=== PATIENT | female | born 1935 | race Caucasian/White ===

== ENCOUNTER 2020-08-04 12:32 | Outpatient (REF) | payer MEDICARE, SELFPAY ==
[2020-08-04 14:02] LABS: MANUAL DIFF FLAG NO
[2020-08-04 14:10] LABS: Basophils Percent Auto 0.6 % (0-2); Eosinophils Absolute Auto 0.1 X10*3/uL (0.0-0.4); Eosinophils Percent Auto 0.9 % (0-4); Hematocrit 40.5 % (37-47); Hemoglobin 13.4 g/dl (12.0-16.0); Imm Gran Abs Auto 0.01 X10*3/uL (0.00-0.03); Imm Gran Pct Auto 0.2 % (0.0-0.4); Lymphocytes Absolute Auto 1.6 X10*3/uL (1.2-4.9); Lymphocytes Percent Auto 24.9 % (20-40); Mean Corpuscular HGB Conc 33.1 g/dl (31.0-35.0); Mean Corpuscular Hemoglobin 31.2 pg (27.0-33.0); Mean Corpuscular Volume 94.4 fL (80-98); Mean Platelet Volume 10.3 fL (9.4-12.3); Monocytes Absolute Auto 0.5 X10*3/uL (0.1-1.2); Monocytes Percent Auto 8.1 % (2-11); Neutrophils Absolute Auto 4.3 X10*3/uL (2.0-8.3); Neutrophils Percent Auto 65.3 % (45-73); Platelet Count 218 X10*3/uL (160-400); Red Blood Count 4.29 X10*6/uL (4.20-5.50); Red Cell Distribution Width 13.5 % (11.0-16.0); White Blood Count 6.6 X10*3/uL (4.8-10.8)
[2020-08-04 14:55] LABS: Alanine Aminotransferase 18 U/L (0-31); Albumin Level 4.1 g/dL (3.5-5.0); Alkaline Phosphatase 82 U/L (39-117); Anion Gap 12 (12-20); Aspartate Amino Transferase 24 U/L (5-31); Bilirubin Total 0.6 mg/dL (0.0-1.0); Blood Urea Nitrogen 14 mg/dL (9-16); C Reactive Protein 1.13 mg/dL (< or = 0.50); Calcium 9.4 mg/dL (8.4-10.2); Carbon Dioxide 27 mmol/L (22-29); Chloride 104 mmol/L (96-108); Estimated Glomerular Filt Rate > 60; Glucose Random 76 mg/dL (60-115); Potassium 4.4 mmol/l (3.3-5.1); Sodium 139 mmol/L (135-145); Total Protein 6.8 g/dL (6.5-8.0)
[2020-08-05 16:12] LABS: IgA 189 mg/dL (70-320); IgG 1087 mg/dL (600-1540); IgM 80 mg/dL (50-300)
[2020-08-05 22:02] LABS: Prot Elec - Albumin 3.8 g/dL (3.8-4.8); Prot Elec - Alpha1 0.4 g/dL (0.2-0.3); Prot Elec - Alpha2 0.8 g/dL (0.5-0.9); Prot Elec - Beta 1 0.4 g/dL (0.4-0.6); Prot Elec - Beta 2 0.4 g/dL (0.2-0.5); Prot Elec - Gamma 0.9 g/dL (0.8-1.7); Prot Elec - Total Protein 6.7 g/dL (6.1-8.1)
== END 2020-08-04 12:33 | disposition home or self-care (01) ==
LOC: HO.LAB 12:32
PROVIDERS: PCP Internal Medicine; Visit Provider Student in an Organized Health Care Education/Training Program
DX: M05.79 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 organ or systems involvement (principal); M85.80 Other specified disorders of bone density and structure, unspecified site; Z79.899 Other long term (current) drug therapy
CPT/HCPCS: 36415; 80053; 82784; 84155; 84165; 85025; 86140; 86334

== ENCOUNTER → 2020-08-13 11:00 | Outpatient (BNVA) | payer MEDICARE, SELFPAY | PROVIDERS: PCP Internal Medicine; Referring Provider Internal Medicine; Visit Provider Student in an Organized Health Care Education/Training Program | DX: M05.9 Rheumatoid arthritis with rheumatoid factor, unspecified (principal); M85.80 Other specified disorders of bone density and structure, unspecified site; Z79.899 Other long term (current) drug therapy | CPT/HCPCS: 99213 ==

== ENCOUNTER 2020-09-04 10:45 | Outpatient (REF) | payer MEDICARE, SELFPAY ==
--- NOTE | 2020-09-04 10:49 | MM_ITS ---
EXAMINATION: MM SCREENING DIGITAL BREAST TOMOSYNTHESIS, BILATERAL CLINICAL INFORMATION: Screening. Asymptomatic. Status post left lumpectomy. COMPARISON: Mammography: August 07, 2019 and studies dating back to May 23, 2012 TECHNIQUE: Digital breast tomosynthesis is performed in both the craniocaudal and mediolateral oblique views along with computer-aided detection (CAD). Synthesized 2D images are generated from the tomosynthesis. FINDINGS: The breasts are almost entirely fatty (ACR BI-RADS breast composition Category a). Stable postsurgical changes from lumpectomy seen within the left breast. No new abnormal dominant mass or suspicious grouping of microcalcifications identified. MM/MM tomosynthesis screening BI IMPRESSION: There are no significant changes from prior study. ASSESSMENT: BI-RADS 2: Benign RECOMMENDATION: Routine annual mammography screening. This patient's information was entered into a reminder system with a target due date for their next mammogram.
== END 2020-09-04 10:46 | disposition home or self-care (01) ==
LOC: HO.MAMMO 10:45
PROVIDERS: PCP Internal Medicine; Visit Provider Internal Medicine
DX: Z12.31 Encounter for screening mammogram for malignant neoplasm of breast (principal)
CPT/HCPCS: 77063; 77067

== ENCOUNTER 2020-12-08 09:09 | Outpatient (REF) | payer MEDICARE, SELFPAY ==
[2020-12-08 09:41] LABS: MANUAL DIFF FLAG NO
[2020-12-08 09:43] LABS: Basophils Percent Auto 0.6 % (0-2); Eosinophils Absolute Auto 0.1 X10*3/uL (0.0-0.4); Eosinophils Percent Auto 1.2 % (0-4); Hematocrit 39.7 % (37-47); Hemoglobin 13.1 g/dl (12.0-16.0); Imm Gran Abs Auto 0.03 X10*3/uL (0.00-0.03); Imm Gran Pct Auto 0.5 % (0.0-0.4); Lymphocytes Absolute Auto 1.6 X10*3/uL (1.2-4.9); Lymphocytes Percent Auto 24.6 % (20-40); Mean Corpuscular Hemoglobin 31.4 pg (27.0-33.0); Mean Corpuscular Volume 95.2 fL (80-98); Mean Platelet Volume 9.8 fL (9.4-12.3); Monocytes Absolute Auto 0.4 X10*3/uL (0.1-1.2); Monocytes Percent Auto 6.3 % (2-11); Neutrophils Absolute Auto 4.3 X10*3/uL (2.0-8.3); Neutrophils Percent Auto 66.8 % (45-73); Platelet Count 204 X10*3/uL (160-400); Red Blood Count 4.17 X10*6/uL (4.20-5.50); Red Cell Distribution Width 13.6 % (11.0-16.0); White Blood Count 6.5 X10*3/uL (4.8-10.8)
[2020-12-08 10:15] LABS: Alanine Aminotransferase 16 U/L (0-31); Albumin Level 3.9 g/dL (3.5-5.0); Alkaline Phosphatase 79 U/L (39-117); Anion Gap 12 (12-20); Aspartate Amino Transferase 22 U/L (5-31); Bilirubin Total 0.5 mg/dL (0.0-1.0); Blood Urea Nitrogen 18 mg/dL (9-16); C Reactive Protein 1.03 mg/dL (< or = 0.50); Carbon Dioxide 29 mmol/L (22-29); Chloride 104 mmol/L (96-108); Estimated Glomerular Filt Rate > 60; Glucose Random 106 mg/dL (60-115); Potassium 4.6 mmol/L (3.3-5.1); Sodium 140 mmol/L (135-145); Total Protein 6.7 g/dL (6.5-8.0)
[2020-12-08 10:17] LABS: Cholesterol 201 mg/dL; HDL Cholesterol 54 mg/dL; LDL Cholesterol Calculated 130 mg/dl; Triglycerides 87 mg/dL
[2020-12-08 11:03] LABS: Erythrocyte Sedimentation Rate 23 MM/HR (0-20)
== END 2020-12-08 09:10 | disposition home or self-care (01) ==
LOC: HO.LAB 09:09
PROVIDERS: PCP Internal Medicine; Visit Provider Student in an Organized Health Care Education/Training Program
DX: M05.9 Rheumatoid arthritis with rheumatoid factor, unspecified (principal); E78.00 Pure hypercholesterolemia, unspecified
CPT/HCPCS: 36415; 80053; 80061; 85025; 85652; 86140

== ENCOUNTER → 2020-12-17 10:50 | Outpatient (BNVA) | payer MEDICARE, SELFPAY | PROVIDERS: PCP Internal Medicine; Referring Provider Internal Medicine; Visit Provider Student in an Organized Health Care Education/Training Program | DX: M05.9 Rheumatoid arthritis with rheumatoid factor, unspecified (principal); M85.80 Other specified disorders of bone density and structure, unspecified site; Z79.899 Other long term (current) drug therapy | CPT/HCPCS: 99212 ==

== ENCOUNTER 2021-04-09 11:58 | Outpatient (REF) | payer MEDICARE, SELFPAY ==
[2021-04-09 13:00] LABS: MANUAL DIFF FLAG NO
[2021-04-09 13:08] LABS: Basophils Percent Auto 0.6 % (0-2); Eosinophils Absolute Auto 0.1 X10*3/uL (0.0-0.4); Hemoglobin 13.3 g/dl (12.0-16.0); Imm Gran Abs Auto 0.01 X10*3/uL (0.00-0.03); Imm Gran Pct Auto 0.1 % (0.0-0.4); Lymphocytes Absolute Auto 1.5 X10*3/uL (1.2-4.9); Mean Corpuscular HGB Conc 32.4 g/dl (31.0-35.0); Mean Corpuscular Hemoglobin 30.8 pg (27.0-33.0); Mean Corpuscular Volume 94.9 fL (80-98); Mean Platelet Volume 10.4 fL (9.4-12.3); Monocytes Absolute Auto 0.4 X10*3/uL (0.1-1.2); Monocytes Percent Auto 6.3 % (2-11); Platelet Count 196 X10*3/uL (160-400); Red Blood Count 4.32 X10*6/uL (4.20-5.50)
[2021-04-09 13:47] LABS: Alanine Aminotransferase 16 U/L (0-31); Alkaline Phosphatase 83 U/L (39-117); Anion Gap 13 (12-20); Aspartate Amino Transferase 27 U/L (5-31); Bilirubin Total 0.6 mg/dL (0.0-1.0); Blood Urea Nitrogen 17 mg/dL (9-16); C Reactive Protein 1.44 mg/dL (< or = 0.50); Calcium 10.1 mg/dL (8.4-10.2); Carbon Dioxide 29 mmol/L (22-29); Chloride 102 mmol/L (96-108); Estimated Glomerular Filt Rate > 60; Glucose Random 100 mg/dL (60-115); Potassium 4.5 mmol/L (3.3-5.1); Sodium 139 mmol/L (135-145); Total Protein 6.9 g/dL (6.5-8.0)
[2021-04-09 13:49] LABS: Erythrocyte Sedimentation Rate 30 MM/HR (0-20)
[2021-04-10 22:46] LABS: Prot Elec - Albumin 3.8 g/dL (3.8-4.8); Prot Elec - Alpha1 0.3 g/dL (0.2-0.3); Prot Elec - Alpha2 0.8 g/dL (0.5-0.9); Prot Elec - Beta 1 0.4 g/dL (0.4-0.6); Prot Elec - Beta 2 0.4 g/dL (0.2-0.5); Prot Elec - Gamma 0.9 g/dL (0.8-1.7); Prot Elec - Total Protein 6.6 g/dL (6.1-8.1)
[2021-04-12 08:57] LABS: IgA 196 mg/dL (70-320); IgG 1109 mg/dL (600-1540); IgM 87 mg/dL (50-300)
== END 2021-04-09 11:59 | disposition home or self-care (01) ==
LOC: HO.LAB 11:58
PROVIDERS: PCP Internal Medicine; Visit Provider Student in an Organized Health Care Education/Training Program
DX: M05.9 Rheumatoid arthritis with rheumatoid factor, unspecified (principal)
CPT/HCPCS: 36415; 80053; 82784; 84155; 84165; 85025; 85652; 86140; 86334

== ENCOUNTER → 2021-04-17 07:56 | Outpatient (BNVA) | payer MEDICARE, SELFPAY | PROVIDERS: PCP Internal Medicine; Visit Provider Student in an Organized Health Care Education/Training Program | DX: M05.9 Rheumatoid arthritis with rheumatoid factor, unspecified (principal); M85.80 Other specified disorders of bone density and structure, unspecified site; Z79.899 Other long term (current) drug therapy | CPT/HCPCS: 99212 ==

== ENCOUNTER 2021-08-04 10:43 | Outpatient (REF) | payer MEDICARE, SELFPAY ==
[2021-08-04 11:14] LABS: MANUAL DIFF FLAG NO
[2021-08-04 11:25] LABS: Basophils Absolute Auto 0.1 X10*3/uL (0.0-0.2); Basophils Percent Auto 0.6 % (0-2); Eosinophils Absolute Auto 0.1 X10*3/uL (0.0-0.4); Eosinophils Percent Auto 1.5 % (0-4); Hematocrit 38.3 % (37-47); Hemoglobin 12.5 g/dl (12.0-16.0); Imm Gran Abs Auto 0.02 X10*3/uL (0.00-0.03); Imm Gran Pct Auto 0.3 % (0.0-0.4); Lymphocytes Absolute Auto 1.4 X10*3/uL (1.2-4.9); Lymphocytes Percent Auto 17.7 % (20-40); Mean Corpuscular HGB Conc 32.6 g/dl (31.0-35.0); Mean Corpuscular Hemoglobin 29.8 pg (27.0-33.0); Mean Corpuscular Volume 91.4 fL (80-98); Mean Platelet Volume 9.7 fL (9.4-12.3); Monocytes Absolute Auto 0.6 X10*3/uL (0.1-1.2); Neutrophils Absolute Auto 5.7 X10*3/uL (2.0-8.3); Neutrophils Percent Auto 71.9 % (45-73); Platelet Count 242 X10*3/uL (160-400); Red Blood Count 4.19 X10*6/uL (4.20-5.50); Red Cell Distribution Width 14.6 % (11.0-16.0); White Blood Count 7.9 X10*3/uL (4.8-10.8)
[2021-08-04 11:36] LABS: MANUAL DIFF FLAG NO
[2021-08-04 11:56] LABS: Alanine Aminotransferase 16 U/L (0-31); Albumin Level 3.8 g/dL (3.5-5.0); Alkaline Phosphatase 82 U/L (39-117); Anion Gap 13 (12-20); Aspartate Amino Transferase 21 U/L (5-31); Bilirubin Total 0.5 mg/dL (0.0-1.0); Blood Urea Nitrogen 13 mg/dL (9-16); C Reactive Protein 3.28 mg/dL (< or = 0.50); Calcium 9.8 mg/dL (8.4-10.2); Carbon Dioxide 27 mmol/L (22-29); Chloride 105 mmol/L (96-108); Estimated Glomerular Filt Rate > 60; Glucose Random 94 mg/dL (60-115); Potassium 4.6 mmol/L (3.3-5.1); Sodium 140 mmol/L (135-145); Total Protein 6.9 g/dL (6.5-8.0)
[2021-08-04 12:25] LABS: Erythrocyte Sedimentation Rate 63 MM/HR (0-20)
[2021-08-08 13:07] LABS: Vitamin D 25-OH, D2 <4 ng/mL; Vitamin D 25-OH, D3 33 ng/mL; Vitamin D 25-OH, Total 33 ng/mL (30-100)
== END 2021-08-04 10:44 | disposition home or self-care (01) ==
LOC: HO.LAB 10:43
PROVIDERS: Student in an Organized Health Care Education/Training Program; PCP Internal Medicine; Visit Provider Nurse Practitioner Family
DX: M05.9 Rheumatoid arthritis with rheumatoid factor, unspecified (principal); M85.80 Other specified disorders of bone density and structure, unspecified site
CPT/HCPCS: 36415; 80053; 82306; 85025; 85652; 86140

== ENCOUNTER → 2021-08-05 14:28 | Outpatient (BNVA) | payer MEDICARE, SELFPAY | PROVIDERS: PCP Internal Medicine; Visit Provider Nurse Practitioner Family | DX: M85.80 Other specified disorders of bone density and structure, unspecified site (principal); M05.9 Rheumatoid arthritis with rheumatoid factor, unspecified; Z79.899 Other long term (current) drug therapy | CPT/HCPCS: 99212 ==

== ENCOUNTER 2021-09-08 12:08 | Outpatient (REF) | payer MEDICARE, SELFPAY ==
[2021-09-08 12:32] LABS: MANUAL DIFF FLAG NO
[2021-09-08 13:22] LABS: Basophils Percent Auto 0.6 % (0-2); Eosinophils Absolute Auto 0.1 X10*3/uL (0.0-0.4); Eosinophils Percent Auto 1.8 % (0-4); Hematocrit 38.5 % (37.0-47.0); Hemoglobin 12.3 g/dl (12.0-16.0); Imm Gran Abs Auto 0.02 X10*3/uL (0.00-0.03); Imm Gran Pct Auto 0.3 % (0.0-0.4); Lymphocytes Absolute Auto 1.6 X10*3/uL (1.2-4.9); Lymphocytes Percent Auto 22.2 % (20-40); Mean Corpuscular HGB Conc 31.9 g/dl (31.0-35.0); Mean Corpuscular Hemoglobin 30.1 pg (27.0-33.0); Mean Corpuscular Volume 94.1 fL (80.0-98.0); Mean Platelet Volume 10.2 fL (9.4-12.3); Monocytes Absolute Auto 0.6 X10*3/uL (0.1-1.2); Monocytes Percent Auto 8.6 % (2-11); Neutrophils Absolute Auto 4.8 x10*3/uL (2.0-8.3); Neutrophils Percent Auto 66.5 % (45-73); Platelet Count 235 X10*3/uL (160-400); Red Blood Count 4.09 X10*6/uL (4.20-5.50); Red Cell Distribution Width 15.2 % (11.0-16.0); White Blood Count 7.2 X10*3/uL (4.8-10.8)
[2021-09-08 13:53] LABS: Alanine Aminotransferase 17 U/L (0-31); Albumin Level 3.6 g/dL (3.5-5.0); Alkaline Phosphatase 78 U/L (39-117); Anion Gap 12 (12-20); Aspartate Amino Transferase 21 U/L (5-31); Bilirubin Total 0.4 mg/dL (0.0-1.0); Blood Urea Nitrogen 16 mg/dL (9-16); C Reactive Protein 1.93 mg/dL (< or = 0.50); Calcium 9.4 mg/dL (8.4-10.2); Carbon Dioxide 29 mmol/L (22-29); Chloride 104 mmol/L (96-108); Estimated Glomerular Filt Rate > 60; Glucose Random 109 mg/dL (60-115); Potassium 4.8 mmol/L (3.3-5.1); Sodium 140 mmol/L (135-145); Total Protein 6.5 g/dL (6.5-8.0)
[2021-09-08 14:06] LABS: Erythrocyte Sedimentation Rate 37 MM/HR (0-20)
== END 2021-09-08 12:09 | disposition home or self-care (01) ==
LOC: HO.LAB 12:08
PROVIDERS: Visit Provider Nurse Practitioner Family
DX: M05.9 Rheumatoid arthritis with rheumatoid factor, unspecified (principal); Z79.899 Other long term (current) drug therapy
CPT/HCPCS: 36415; 80053; 85025; 85652; 86140

== ENCOUNTER → 2021-09-15 10:10 | Outpatient (BNVA) | payer MEDICARE, SELFPAY | PROVIDERS: PCP Internal Medicine; Visit Provider Nurse Practitioner Family | DX: M05.9 Rheumatoid arthritis with rheumatoid factor, unspecified (principal); M85.80 Other specified disorders of bone density and structure, unspecified site; Z79.899 Other long term (current) drug therapy | CPT/HCPCS: 99212 ==

== ENCOUNTER 2021-10-14 10:16 | Outpatient (REF) | payer MEDICARE, SELFPAY ==
--- NOTE | ~2021-10-14 | MM_ITS ---
EXAMINATION: MM SCREENING DIGITAL BREAST TOMOSYNTHESIS, BILATERAL CLINICAL INFORMATION: Screening. Asymptomatic. Left lumpectomy for breast cancer, 2011. Benign left stereotactic biopsy at lumpectomy site 2016 (benign breast tissue with fibroadenomatous stromal fibrosis, fat necrosis, and dystrophic calcifications). COMPARISON: Mammography: 09/04/2020, 07/08/2019, 07/24/2018 TECHNIQUE: Digital breast tomosynthesis is performed in both the craniocaudal and mediolateral oblique views along with computer-aided detection (CAD). Synthesized 2D images are generated from the tomosynthesis. Additional left MLO view is provided. FINDINGS: There are scattered areas of fibroglandular density (ACR BI-RADS breast composition Category b). Left breast post therapy changes are similar to prior studies. There is a biopsy clip marker in the lumpectomy scar. The right breast is unremarkable. Neither breast shows interval mass or architectural abnormality or abnormal calcifications. No significant changes. MM/MM tomosynthesis screening BI IMPRESSION: No mammographic evidence of malignancy. Post therapy changes left breast. ASSESSMENT: BI-RADS 2: Benign RECOMMENDATION: Routine annual mammography screening. This patient's information was entered into a reminder system with a target due date for their next mammogram.
--- NOTE | ~2021-10-14 | MM_ITS ---
EXAMINATION: BONE DENSITOMETRY CLINICAL INDICATION: Other specified disorders of bone density and structure. COMPARISON: Previous BD dated 09/13/2019 and baseline BD dated 09/09/2009. TECHNIQUE: Using a [employer] DXA System (software version: 13.1) manufactured by [employer], dual-energy x-ray absorptiometry was performed of the lumbar spine and left hip. The images are of good technical quality. Summary results are attached. FINDINGS: AP SPINE L1-L2 (excluding L3 and L4): The data of L1-L4 has been changed to exclude the L3 and L4 vertebral bodies because degenerative changes at these levels may cause overestimation of the lumbar spine density. Current: BMD 1.132 g/cm2, Z-score 0.9, T-score -0.3, normal, 0.6% increase from previous, 0.3% increase from baseline (<5% change is not significant). Prior: BMD 1.125 g/cm2. Baseline: BMD 1.129 g/cm2. LEFT FEMUR, NECK: Current: BMD 0.835 g/cm2, Z-score 0.4, T-score -1.5, osteopenia. Prior: BMD 0.799 g/cm2. Baseline: BMD 0.913 g/cm2. LEFT FEMUR, TOTAL: Current: BMD 0.852 g/cm2, Z-score 0.4, T-score -1.2, osteopenia, 0.2% increase from previous, 5.2% decrease from baseline (<5% change is not significant). Prior: BMD 0.850 g/cm2. Baseline: BMD 0.899 g/cm2. IDENTIFIED RISK FACTORS: Rheumatoid arthritis, history of fracture (adult), menopause. HISTORY OF FRACTURE: Wrist. MEDICATIONS: Calcium supplements or multivitamin, vitamin D, bisphosphonates. MM/XR DEXA axial skeleton IMPRESSION: 1. DIAGNOSIS: Osteopenia based on the lowest T-score value of -1.5 in the femoral neck applying World Health Organization criteria. 2. 10-YEAR FRACTURE RISK PREDICTION, FRAX: Major osteoporotic fracture (clinical spine, forearm, hip or shoulder) 23.1%. Hip fracture 5.9%. 3. Treatment Recommendations: NOF guidelines recommend consideration for treatment in postmenopausal women and men age 50 and older presenting with the following: -A hip or vertebral (clinical or morphometric) fracture. -T-score less than or equal to -2.5 at the femoral neck or spine after appropriate evaluation to exclude secondary causes. -Low bone mass at the hip or spine and a 10-year fracture probability by FRAX of greater than or equal to 3% for hip fracture or greater than or equal to 20% for major osteoporotic fracture based on the [place] adapted WHO algorithm. 4. Other Recommendations: All treatment decisions require clinical judgment and consideration of individual patient factors, including patient preferences, comorbidities, previous drug use, risk factors not captured in the FRAX model (e.g. frailty, falls, vitamin D deficiency, increased bone turnover, interval significant decline in bone density) and possible under or overestimation of fracture risk by FRAX. Additional medical evaluation for secondary cause of low bone mineral density may be appropriate. FUTURE SCAN RECOMMENDATION: People with diagnosed cases of osteoporosis or at high risk for fracture should have regular bone mineral density tests. For patients eligible for Medicare, routine testing is allowed once every 2 years. The testing frequency can be increased to one year for patients who have rapidly progressing disease, those who are receiving or discontinuing medical therapy to restore bone mass, or have additional risk factors.
== END 2021-10-14 10:17 | disposition home or self-care (01) ==
LOC: HO.MAMMO 10:16
PROVIDERS: PCP Internal Medicine; Visit Provider Nurse Practitioner Family
DX: Z12.31 Encounter for screening mammogram for malignant neoplasm of breast (principal); Z13.820 Encounter for screening for osteoporosis; M85.80 Other specified disorders of bone density and structure, unspecified site; Z78.0 Asymptomatic menopausal state; M06.9 Rheumatoid arthritis, unspecified; Z87.81 Personal history of (healed) traumatic fracture; Z79.899 Other long term (current) drug therapy
CPT/HCPCS: 77063; 77067; 77080

== ENCOUNTER 2021-12-09 13:07 | Outpatient (REF) | payer MEDICARE, SELFPAY ==
[2021-12-09 13:24] LABS: MANUAL DIFF FLAG NO
[2021-12-09 13:58] LABS: Basophils Percent Auto 0.6 % (0-2); Eosinophils Absolute Auto 0.1 X10*3/uL (0.0-0.4); Eosinophils Percent Auto 1.5 % (0-4); Hematocrit 41.1 % (37.0-47.0); Hemoglobin 13.4 g/dl (12.0-16.0); Imm Gran Abs Auto 0.02 X10*3/uL (0.00-0.03); Imm Gran Pct Auto 0.3 % (0.0-0.4); Lymphocytes Absolute Auto 1.6 X10*3/uL (1.2-4.9); Lymphocytes Percent Auto 26.1 % (20-40); Mean Corpuscular HGB Conc 32.6 g/dl (31.0-35.0); Mean Corpuscular Hemoglobin 30.7 pg (27.0-33.0); Mean Corpuscular Volume 94.1 fL (80.0-98.0); Mean Platelet Volume 10.1 fL (9.4-12.3); Monocytes Absolute Auto 0.5 X10*3/uL (0.1-1.2); Monocytes Percent Auto 8.7 % (2-11); Neutrophils Absolute Auto 3.9 x10*3/uL (2.0-8.3); Neutrophils Percent Auto 62.8 % (45-73); Platelet Count 199 X10*3/uL (160-400); Red Blood Count 4.37 X10*6/uL (4.20-5.50); Red Cell Distribution Width 14.8 % (11.0-16.0); White Blood Count 6.2 X10*3/uL (4.8-10.8)
[2021-12-09 14:38] LABS: Erythrocyte Sedimentation Rate 27 MM/HR (0-20)
[2021-12-09 14:56] LABS: Alanine Aminotransferase 15 U/L (0-31); Albumin Level 4.1 g/dL (3.5-5.0); Alkaline Phosphatase 82 U/L (39-117); Anion Gap 11 (12-20); Aspartate Amino Transferase 24 U/L (5-31); Bilirubin Total 0.7 mg/dL (0.0-1.0); C Reactive Protein 0.91 mg/dL (< or = 0.50); Carbon Dioxide 32 mmol/L (22-29); Chloride 103 mmol/L (96-108); Estimated Glomerular Filt Rate > 60; Glucose Random 91 mg/dL (60-115); Potassium 5.3 mmol/L (3.3-5.1); Sodium 141 mmol/L (135-145); Total Protein 7.2 g/dL (6.5-8.0)
[2021-12-09 16:05] LABS: Blood Urea Nitrogen 17 mg/dL (9-16); Calcium 10.6 mg/dL (8.4-10.2)
== END 2021-12-09 13:08 | disposition home or self-care (01) ==
LOC: HO.LAB 13:07
PROVIDERS: PCP Internal Medicine; Visit Provider Nurse Practitioner Family
DX: M05.9 Rheumatoid arthritis with rheumatoid factor, unspecified (principal)
CPT/HCPCS: 36415; 80053; 85025; 85652; 86140

== ENCOUNTER 2021-12-10 12:59 | Outpatient (REF) | payer MEDICARE, SELFPAY ==
[2021-12-10 14:18] LABS: Alanine Aminotransferase 15 U/L (0-31); Albumin Level 4.1 g/dL (3.5-5.0); Alkaline Phosphatase 82 U/L (39-117); Anion Gap 13 (12-20); Aspartate Amino Transferase 25 U/L (5-31); Bilirubin Total 0.6 mg/dL (0.0-1.0); Blood Urea Nitrogen 18 mg/dL (9-16); Calcium 9.7 mg/dL (8.4-10.2); Carbon Dioxide 26 mmol/L (22-29); Chloride 102 mmol/L (96-108); Estimated Glomerular Filt Rate > 60; Glucose Random 79 mg/dL (60-115); Potassium 4.2 mmol/L (3.3-5.1); Sodium 137 mmol/L (135-145); Total Protein 7.1 g/dL (6.5-8.0)
[2021-12-11 17:32] LABS: Calcium (PTHI) 9.4 mg/dL (8.6-10.4); PTHI 56 pg/mL (14-64)
== END 2021-12-10 13:00 | disposition home or self-care (01) ==
LOC: HO.LAB 12:59
PROVIDERS: PCP Internal Medicine; Visit Provider Nurse Practitioner Family
DX: E83.52 Hypercalcemia (principal); E87.5 Hyperkalemia
CPT/HCPCS: 36415; 80053; 83970

== ENCOUNTER → 2021-12-16 10:28 | Outpatient (BNVA) | payer MEDICARE, SELFPAY | PROVIDERS: PCP Internal Medicine; Visit Provider Nurse Practitioner Family | DX: M05.9 Rheumatoid arthritis with rheumatoid factor, unspecified (principal); M85.80 Other specified disorders of bone density and structure, unspecified site; Z79.899 Other long term (current) drug therapy | CPT/HCPCS: 99212 ==

== ENCOUNTER 2022-03-10 12:45 | Outpatient (REF) | payer MEDICARE, SELFPAY ==
[2022-03-10 12:54] LABS: MANUAL DIFF FLAG NO
[2022-03-10 13:16] LABS: Basophils Percent Auto 0.5 % (0-2); Eosinophils Absolute Auto 0.1 X10*3/uL (0.0-0.4); Eosinophils Percent Auto 0.9 % (0-4); Hematocrit 39.5 % (37.0-47.0); Hemoglobin 12.9 g/dl (12.0-16.0); Imm Gran Abs Auto 0.01 X10*3/uL (0.00-0.03); Imm Gran Pct Auto 0.2 % (0.0-0.4); Lymphocytes Absolute Auto 1.8 X10*3/uL (1.2-4.9); Mean Corpuscular HGB Conc 32.7 g/dl (31.0-35.0); Mean Corpuscular Hemoglobin 30.8 pg (27.0-33.0); Mean Corpuscular Volume 94.3 fL (80.0-98.0); Monocytes Absolute Auto 0.5 X10*3/uL (0.1-1.2); Monocytes Percent Auto 7.1 % (2-11); Neutrophils Absolute Auto 4.2 x10*3/uL (2.0-8.3); Neutrophils Percent Auto 64.3 % (45-73); Platelet Count 203 X10*3/uL (160-400); Red Blood Count 4.19 X10*6/uL (4.20-5.50); Red Cell Distribution Width 13.9 % (11.0-16.0); White Blood Count 6.5 X10*3/uL (4.8-10.8)
[2022-03-10 13:50] LABS: Alanine Aminotransferase 16 U/L (0-31); Alkaline Phosphatase 75 U/L (39-117); Anion Gap 12 (12-20); Aspartate Amino Transferase 23 U/L (5-31); Bilirubin Total 0.5 mg/dL (0.0-1.0); Blood Urea Nitrogen 22 mg/dL (9-16); C Reactive Protein 0.92 mg/dL (< or = 0.50); Calcium 10.1 mg/dL (8.4-10.2); Carbon Dioxide 26 mmol/L (22-29); Chloride 105 mmol/L (96-108); Estimated Glomerular Filt Rate > 60; Glucose Random 94 mg/dL (60-115); Potassium 4.6 mmol/L (3.3-5.1); Sodium 138 mmol/L (135-145); Total Protein 6.6 g/dL (6.5-8.0)
[2022-03-10 14:13] LABS: Erythrocyte Sedimentation Rate 23 MM/HR (0-20)
== END 2022-03-10 12:46 | disposition home or self-care (01) ==
LOC: HO.LAB 12:45
PROVIDERS: PCP Internal Medicine; Visit Provider Nurse Practitioner Family
DX: M05.9 Rheumatoid arthritis with rheumatoid factor, unspecified (principal)
CPT/HCPCS: 36415; 80053; 85025; 85652; 86140

== ENCOUNTER → 2022-03-15 10:23 | Outpatient (BNVA) | payer MEDICARE, SELFPAY | PROVIDERS: PCP Internal Medicine; Visit Provider Nurse Practitioner Family | DX: M05.9 Rheumatoid arthritis with rheumatoid factor, unspecified (principal); M85.80 Other specified disorders of bone density and structure, unspecified site; Z79.899 Other long term (current) drug therapy | CPT/HCPCS: 99212 ==

== ENCOUNTER 2022-04-21 09:17 | Outpatient (REF) | payer MEDICARE, SELFPAY ==
[2022-04-21 09:41] LABS: MANUAL DIFF FLAG NO
[2022-04-21 09:57] LABS: Basophils Percent Auto 0.5 % (0-2); Eosinophils Absolute Auto 0.1 X10*3/uL (0.0-0.4); Eosinophils Percent Auto 1.2 % (0-4); Hematocrit 40.7 % (37.0-47.0); Hemoglobin 13.2 g/dl (12.0-16.0); Imm Gran Abs Auto 0.02 X10*3/uL (0.00-0.03); Imm Gran Pct Auto 0.3 % (0.0-0.4); Lymphocytes Absolute Auto 1.3 X10*3/uL (1.2-4.9); Lymphocytes Percent Auto 21.8 % (20-40); Mean Corpuscular HGB Conc 32.4 g/dl (31.0-35.0); Mean Corpuscular Hemoglobin 30.8 pg (27.0-33.0); Mean Corpuscular Volume 94.9 fL (80.0-98.0); Mean Platelet Volume 9.8 fL (9.4-12.3); Monocytes Absolute Auto 0.5 X10*3/uL (0.1-1.2); Monocytes Percent Auto 8.1 % (2-11); Neutrophils Percent Auto 68.1 % (45-73); Platelet Count 185 X10*3/uL (160-400); Red Blood Count 4.29 X10*6/uL (4.20-5.50); Red Cell Distribution Width 14.1 % (11.0-16.0); White Blood Count 5.8 X10*3/uL (4.8-10.8)
[2022-04-21 10:25] LABS: Alanine Aminotransferase 22 U/L (0-31); Albumin Level 3.9 g/dL (3.5-5.0); Alkaline Phosphatase 77 U/L (39-117); Anion Gap 12 (12-20); Aspartate Amino Transferase 29 U/L (5-31); Bilirubin Direct 0.3 mg/dL (0.0-0.5); Bilirubin Total 0.7 mg/dL (0.0-1.0); Blood Urea Nitrogen 20 mg/dL (9-16); Carbon Dioxide 29 mmol/L (22-29); Chloride 104 mmol/L (96-108); Cholesterol 212 mg/dL; Estimated Glomerular Filt Rate > 60; Glucose Fasting 98 mg/dL (60-99); HDL Cholesterol 59 mg/dL; LDL Cholesterol Calculated 139 mg/dl; Sodium 140 mmol/L (135-145); Total Protein 6.8 g/dL (6.5-8.0); Triglycerides 72 mg/dL
== END 2022-04-21 09:18 | disposition home or self-care (01) ==
LOC: HO.LAB 09:17
PROVIDERS: PCP Internal Medicine; Visit Provider Internal Medicine
DX: Z00.00 Encounter for general adult medical examination without abnormal findings (principal); R53.83 Other fatigue; E78.5 Hyperlipidemia, unspecified
CPT/HCPCS: 36415; 80051; 80061; 80076; 82565; 82947; 84520; 85025

== ENCOUNTER 2022-06-11 13:16 | Outpatient (REF) | payer MEDICARE, SELFPAY ==
[2022-06-11 13:30] LABS: MANUAL DIFF FLAG NO
[2022-06-11 14:09] LABS: Basophils Percent Auto 0.4 % (0-2); Eosinophils Absolute Auto 0.1 X10*3/uL (0.0-0.4); Eosinophils Percent Auto 0.9 % (0-4); Hematocrit 41.4 % (37.0-47.0); Hemoglobin 13.7 g/dl (12.0-16.0); Imm Gran Abs Auto 0.02 X10*3/uL (0.00-0.03); Imm Gran Pct Auto 0.3 % (0.0-0.4); Lymphocytes Absolute Auto 1.9 X10*3/uL (1.2-4.9); Lymphocytes Percent Auto 26.8 % (20-40); Mean Corpuscular HGB Conc 33.1 g/dl (31.0-35.0); Mean Corpuscular Hemoglobin 31.1 pg (27.0-33.0); Mean Corpuscular Volume 94.1 fL (80.0-98.0); Mean Platelet Volume 10.1 fL (9.4-12.3); Monocytes Absolute Auto 0.5 X10*3/uL (0.1-1.2); Monocytes Percent Auto 6.8 % (2-11); Neutrophils Absolute Auto 4.5 x10*3/uL (2.0-8.3); Neutrophils Percent Auto 64.8 % (45-73); Platelet Count 209 X10*3/uL (160-400); Red Cell Distribution Width 13.8 % (11.0-16.0); White Blood Count 6.9 X10*3/uL (4.8-10.8)
[2022-06-11 14:45] LABS: Alanine Aminotransferase 22 U/L (0-31); Albumin Level 4.1 g/dL (3.5-5.0); Alkaline Phosphatase 82 U/L (39-117); Anion Gap 14 (12-20); Aspartate Amino Transferase 30 U/L (5-31); Bilirubin Total 0.6 mg/dL (0.0-1.0); Blood Urea Nitrogen 20 mg/dL (9-16); C Reactive Protein 1.09 mg/dL (< or = 0.50); Calcium 9.7 mg/dL (8.4-10.2); Carbon Dioxide 29 mmol/L (22-29); Chloride 103 mmol/L (96-108); Estimated Glomerular Filt Rate > 60; Glucose Random 91 mg/dL (60-115); Potassium 4.8 mmol/L (3.3-5.1); Sodium 141 mmol/L (135-145)
[2022-06-11 14:47] LABS: Erythrocyte Sedimentation Rate 25 MM/HR (0-20)
[2022-06-11 15:07] LABS: Vitamin D 25-OH Total 35.6 ng/mL (>30)
== END 2022-06-11 13:17 | disposition home or self-care (01) ==
LOC: HO.LAB 13:16
PROVIDERS: PCP Internal Medicine; Visit Provider Nurse Practitioner Family
DX: M05.9 Rheumatoid arthritis with rheumatoid factor, unspecified (principal)
CPT/HCPCS: 36415; 80053; 82306; 85025; 85652; 86140

== ENCOUNTER → 2022-06-16 10:39 | Outpatient (BNVA) | payer MEDICARE, SELFPAY | PROVIDERS: PCP Internal Medicine; Visit Provider Nurse Practitioner Family | DX: M05.9 Rheumatoid arthritis with rheumatoid factor, unspecified (principal); M85.80 Other specified disorders of bone density and structure, unspecified site; Z79.899 Other long term (current) drug therapy | CPT/HCPCS: 99212 ==

== ENCOUNTER 2022-07-23 09:18 | Outpatient (REF) | payer MEDICARE, SELFPAY ==
[2022-07-23 10:10] LABS: Cholesterol 212 mg/dL; HDL Cholesterol 56 mg/dL; LDL Cholesterol Calculated 138 mg/dl; Triglycerides 94 mg/dL
== END 2022-07-23 09:19 | disposition home or self-care (01) ==
LOC: HO.LAB 09:18
PROVIDERS: PCP Internal Medicine; Visit Provider Internal Medicine
DX: E78.5 Hyperlipidemia, unspecified (principal); R53.83 Other fatigue
CPT/HCPCS: 36415; 80061

== ENCOUNTER 2022-09-13 13:07 | Outpatient (REF) | payer MEDICARE, SELFPAY ==
[2022-09-13 13:21] LABS: MANUAL DIFF FLAG NO
[2022-09-13 13:40] LABS: Basophils Percent Auto 0.4 % (0-2); Eosinophils Percent Auto 0.5 % (0-4); Hematocrit 40.8 % (37.0-47.0); Hemoglobin 13.3 g/dl (12.0-16.0); Imm Gran Abs Auto 0.02 X10*3/uL (0.00-0.03); Imm Gran Pct Auto 0.2 % (0.0-0.4); Lymphocytes Absolute Auto 1.7 X10*3/uL (1.2-4.9); Lymphocytes Percent Auto 21.2 % (20-40); Mean Corpuscular HGB Conc 32.6 g/dl (31.0-35.0); Mean Corpuscular Hemoglobin 31.3 pg (27.0-33.0); Mean Platelet Volume 10.1 fL (9.4-12.3); Monocytes Absolute Auto 0.5 X10*3/uL (0.1-1.2); Monocytes Percent Auto 5.7 % (2-11); Neutrophils Absolute Auto 5.8 x10*3/uL (2.0-8.3); Platelet Count 202 X10*3/uL (160-400); Red Blood Count 4.25 X10*6/uL (4.20-5.50); Red Cell Distribution Width 13.9 % (11.0-16.0)
[2022-09-13 14:05] LABS: Alanine Aminotransferase 21 U/L (0-31); Aspartate Amino Transferase 27 U/L (5-31); C Reactive Protein 0.67 mg/dL (< or = 0.50); Estimated Glomerular Filt Rate > 60
[2022-09-13 14:28] LABS: Erythrocyte Sedimentation Rate 23 MM/HR (0-20)
== END 2022-09-13 13:08 | disposition home or self-care (01) ==
LOC: HO.LAB 13:07
PROVIDERS: PCP Internal Medicine; Visit Provider Nurse Practitioner Family
DX: M05.9 Rheumatoid arthritis with rheumatoid factor, unspecified (principal); Z79.899 Other long term (current) drug therapy
CPT/HCPCS: 36415; 82565; 84450; 84460; 85025; 85652; 86140

== ENCOUNTER → 2022-09-16 10:17 | Outpatient (BNVA) | payer MEDICARE, SELFPAY | PROVIDERS: PCP Internal Medicine; Visit Provider Nurse Practitioner Family | DX: M05.9 Rheumatoid arthritis with rheumatoid factor, unspecified (principal); M85.80 Other specified disorders of bone density and structure, unspecified site; Z79.899 Other long term (current) drug therapy | CPT/HCPCS: 99212 ==

== ENCOUNTER 2022-10-15 11:10 | Outpatient (REF) | payer MEDICARE, SELFPAY ==
--- NOTE | ~2022-10-15 | MM_ITS ---
EXAMINATION: MM SCREENING DIGITAL BREAST TOMOSYNTHESIS, BILATERAL CLINICAL INFORMATION: Screening. Asymptomatic. Left lumpectomy for breast cancer, 2011. Benign left stereotactic biopsy at lumpectomy site 2016 (fibroadenomatous stromal fibrosis, fat necrosis, and dystrophic calcifications). COMPARISON: Mammography: 10/14/2021, 09/04/2020, 08/07/2019 TECHNIQUE: Digital breast tomosynthesis is performed in both the craniocaudal and mediolateral oblique views along with computer-aided detection (CAD). Synthesized 2D images are generated from the tomosynthesis. FINDINGS: There are scattered areas of fibroglandular density (ACR BI-RADS breast composition Category b). Right breast tissue composition borders on predominantly fatty. There is no interval mass or architectural abnormality or abnormal calcifications. Right breast is unremarkable. Left breast again has post therapy changes with reduced breast size and old scarring with surgical clip in the center of the scar. There is an chronic large oval density on tomography anterior to the scar outer quadrant approximately 4.5 cm in diameter, possibly a seroma. There is no significant change since 2019. No developing density. MM/MM tomosynthesis screening BI IMPRESSION: No significant changes from prior exams. Chronic post therapy changes left breast. ASSESSMENT: BI-RADS 2: Benign RECOMMENDATION: Routine annual mammography screening. This patient's information was entered into a reminder system with a target due date for their next mammogram.
== END 2022-10-15 11:11 | disposition home or self-care (01) ==
LOC: HO.MAMMO 11:10
PROVIDERS: Visit Provider Internal Medicine
DX: Z12.31 Encounter for screening mammogram for malignant neoplasm of breast (principal)
CPT/HCPCS: 77063; 77067

== ENCOUNTER 2022-12-09 10:58 | Outpatient (REF) | payer MEDICARE, SELFPAY ==
[2022-12-09 11:15] LABS: MANUAL DIFF FLAG NO
[2022-12-09 12:24] LABS: Basophils Absolute Auto 0.1 X10*3/uL (0.0-0.2); Basophils Percent Auto 0.8 % (0-2); Eosinophils Absolute Auto 0.1 X10*3/uL (0.0-0.4); Eosinophils Percent Auto 0.9 % (0-4); Hematocrit 41.6 % (37.0-47.0); Hemoglobin 13.8 g/dl (12.0-16.0); Imm Gran Abs Auto 0.02 X10*3/uL (0.00-0.03); Imm Gran Pct Auto 0.3 % (0.0-0.4); Lymphocytes Absolute Auto 1.5 X10*3/uL (1.2-4.9); Lymphocytes Percent Auto 23.5 % (20-40); Mean Corpuscular HGB Conc 33.2 g/dl (31.0-35.0); Mean Corpuscular Volume 93.5 fL (80.0-98.0); Mean Platelet Volume 10.4 fL (9.4-12.3); Monocytes Absolute Auto 0.5 X10*3/uL (0.1-1.2); Monocytes Percent Auto 7.1 % (2-11); Neutrophils Absolute Auto 4.4 x10*3/uL (2.0-8.3); Neutrophils Percent Auto 67.4 % (45-73); Platelet Count 189 X10*3/uL (160-400); Red Blood Count 4.45 X10*6/uL (4.20-5.50); Red Cell Distribution Width 13.5 % (11.0-16.0); White Blood Count 6.5 X10*3/uL (4.8-10.8)
[2022-12-09 12:59] LABS: Alanine Aminotransferase 21 U/L (0-31); Aspartate Amino Transferase 32 U/L (5-31); C Reactive Protein 1.23 mg/dL (< or = 0.50); Estimated Glomerular Filt Rate > 60
[2022-12-09 13:05] LABS: Erythrocyte Sedimentation Rate 27 MM/HR (0-20)
== END 2022-12-09 10:59 | disposition home or self-care (01) ==
LOC: HO.LAB 10:58
PROVIDERS: PCP Internal Medicine; Visit Provider Nurse Practitioner Family
DX: M05.9 Rheumatoid arthritis with rheumatoid factor, unspecified (principal); Z79.899 Other long term (current) drug therapy
CPT/HCPCS: 36415; 82565; 84450; 84460; 85025; 85652; 86140

== ENCOUNTER 2022-12-14 11:16 | Outpatient (REF) | payer MEDICARE, SELFPAY ==
[2022-12-14 13:27] LABS: Alanine Aminotransferase 16 U/L (0-31); Aspartate Amino Transferase 29 U/L (5-31)
== END 2022-12-14 11:17 | disposition home or self-care (01) ==
LOC: HO.LAB 11:16
PROVIDERS: PCP Internal Medicine; Visit Provider Nurse Practitioner Family
DX: Z79.899 Other long term (current) drug therapy (principal)
CPT/HCPCS: 36415; 84450; 84460

== ENCOUNTER → 2023-01-06 10:45 | Outpatient (BNVA) | payer MEDICARE, SELFPAY | PROVIDERS: PCP Internal Medicine; Visit Provider Nurse Practitioner Family | DX: M05.9 Rheumatoid arthritis with rheumatoid factor, unspecified (principal); M85.80 Other specified disorders of bone density and structure, unspecified site; Z79.899 Other long term (current) drug therapy | CPT/HCPCS: 99212 ==

== ENCOUNTER 2023-03-14 10:42 | Outpatient (REF) | payer MEDICARE, SELFPAY ==
[2023-03-14 10:57] LABS: MANUAL DIFF FLAG NO
[2023-03-14 11:33] LABS: Basophils Absolute Auto 0.1 X10*3/uL (0.0-0.2); Basophils Percent Auto 0.6 % (0-2); Eosinophils Absolute Auto 0.1 X10*3/uL (0.0-0.4); Eosinophils Percent Auto 1.1 % (0-4); Hematocrit 39.1 % (37.0-47.0); Hemoglobin 12.8 g/dl (12.0-16.0); Imm Gran Abs Auto 0.02 X10*3/uL (0.00-0.03); Imm Gran Pct Auto 0.3 % (0.0-0.4); Lymphocytes Absolute Auto 1.8 X10*3/uL (1.2-4.9); Mean Corpuscular HGB Conc 32.7 g/dl (31.0-35.0); Mean Corpuscular Hemoglobin 30.9 pg (27.0-33.0); Mean Corpuscular Volume 94.4 fL (80.0-98.0); Mean Platelet Volume 10.1 fL (9.4-12.3); Monocytes Absolute Auto 0.6 X10*3/uL (0.1-1.2); Monocytes Percent Auto 7.2 % (2-11); Neutrophils Absolute Auto 5.5 x10*3/uL (2.0-8.3); Neutrophils Percent Auto 68.8 % (45-73); Platelet Count 232 X10*3/uL (160-400); Red Blood Count 4.14 X10*6/uL (4.20-5.50); Red Cell Distribution Width 14.3 % (11.0-16.0)
[2023-03-14 12:12] LABS: Erythrocyte Sedimentation Rate 37 MM/HR (0-20)
[2023-03-14 12:14] LABS: Alanine Aminotransferase 15 U/L (0-31); Albumin Level 3.8 g/dL (3.5-5.0); Alkaline Phosphatase 95 U/L (39-117); Anion Gap 11 (12-20); Aspartate Amino Transferase 22 U/L (5-31); Bilirubin Total 0.6 mg/dL (0.0-1.0); Blood Urea Nitrogen 18 mg/dL (9-16); C Reactive Protein 1.23 mg/dL (< or = 0.50); Calcium 9.6 mg/dL (8.4-10.2); Carbon Dioxide 28 mmol/L (22-29); Chloride 104 mmol/L (96-108); Estimated Glomerular Filt Rate > 60; Glucose Random 89 mg/dL (60-115); Potassium 4.4 mmol/L (3.3-5.1); Sodium 139 mmol/L (135-145); Total Protein 6.6 g/dL (6.5-8.0)
[2023-03-14 12:19] LABS: Vitamin D 25-OH Total 39.6 ng/mL (>30)
== END 2023-03-14 10:43 | disposition home or self-care (01) ==
LOC: HO.LAB 10:42
PROVIDERS: PCP Internal Medicine; Visit Provider Nurse Practitioner Family
DX: M05.9 Rheumatoid arthritis with rheumatoid factor, unspecified (principal); M85.80 Other specified disorders of bone density and structure, unspecified site; Z79.899 Other long term (current) drug therapy
CPT/HCPCS: 36415; 80053; 82306; 85025; 85652; 86140

== ENCOUNTER 2023-05-31 12:18 | Outpatient (REF) | payer MEDICARE, SELFPAY ==
[2023-05-31 13:37] LABS: Potassium 4.4 mmol/L (3.3-5.1)
== END 2023-05-31 12:19 | disposition home or self-care (01) ==
LOC: HO.LAB 12:18
PROVIDERS: PCP Internal Medicine; Visit Provider Internal Medicine
DX: R53.83 Other fatigue (principal)
CPT/HCPCS: 36415; 84132

== ENCOUNTER 2023-06-15 12:50 | Outpatient (REF) | payer MEDICARE, SELFPAY ==
[2023-06-15 13:08] LABS: MANUAL DIFF FLAG NO
[2023-06-15 13:37] LABS: Basophils Percent Auto 0.6 % (0-2); Eosinophils Absolute Auto 0.1 X10*3/uL (0.0-0.4); Eosinophils Percent Auto 0.9 % (0-4); Hematocrit 41.2 % (37.0-47.0); Hemoglobin 13.6 g/dl (12.0-16.0); Imm Gran Abs Auto 0.03 X10*3/uL (0.00-0.03); Imm Gran Pct Auto 0.4 % (0.0-0.4); Lymphocytes Absolute Auto 1.6 X10*3/uL (1.2-4.9); Lymphocytes Percent Auto 23.8 % (20-40); Mean Corpuscular Hemoglobin 30.8 pg (27.0-33.0); Mean Corpuscular Volume 93.4 fL (80.0-98.0); Mean Platelet Volume 10.6 fL (9.4-12.3); Monocytes Absolute Auto 0.4 X10*3/uL (0.1-1.2); Monocytes Percent Auto 6.5 % (2-11); Neutrophils Absolute Auto 4.6 x10*3/uL (2.0-8.3); Neutrophils Percent Auto 67.8 % (45-73); Platelet Count 199 X10*3/uL (160-400); Red Blood Count 4.41 X10*6/uL (4.20-5.50); Red Cell Distribution Width 14.1 % (11.0-16.0); White Blood Count 6.8 X10*3/uL (4.8-10.8)
[2023-06-15 14:17] LABS: Erythrocyte Sedimentation Rate 28 MM/HR (0-20)
[2023-06-15 14:49] LABS: Alanine Aminotransferase 16 U/L (0-31); Albumin Level 3.9 g/dL (3.5-5.0); Alkaline Phosphatase 89 U/L (39-117); Anion Gap 12 (12-20); Aspartate Amino Transferase 23 U/L (5-31); Bilirubin Total 0.6 mg/dL (0.0-1.0); Blood Urea Nitrogen 18 mg/dL (9-16); C Reactive Protein 0.81 mg/dL (< or = 0.50); Calcium 10.4 mg/dL (8.4-10.2); Carbon Dioxide 30 mmol/L (22-29); Chloride 102 mmol/L (96-108); Estimated Glomerular Filt Rate > 60; Glucose Random 90 mg/dL (60-115); Potassium 4.7 mmol/L (3.3-5.1); Sodium 139 mmol/L (135-145); Total Protein 7.3 g/dL (6.5-8.0)
== END 2023-06-15 12:51 | disposition home or self-care (01) ==
LOC: HO.LAB 12:50
PROVIDERS: PCP Internal Medicine; Visit Provider Student in an Organized Health Care Education/Training Program
DX: Z79.899 Other long term (current) drug therapy (principal)
CPT/HCPCS: 36415; 80053; 85025; 85652; 86140

== ENCOUNTER 2023-08-12 13:07 | Outpatient (AMB) | payer MEDICARE, SELFPAY ==
[2023-08-12 13:16] VITALS: BP 140/88; PULSE 68; TEMP 36.3; O2SAT 95; BMI 32.9
--- NOTE | 2023-08-12 13:16 | A.OFFVIS_ITS ---
Intake Vital Signs 08/12/23 13:16 Height 5 ft 4 in Weight 191 lb 12.835 oz BMI 32.9 BP 140/88 H Blood Pressure Location Rt brachial Position Sitting Pulse 68 Pulse Source Pulse Oximeter Temp 97.3 F Temp Source Skin Pulse Oximetry (%) 95 Intake Visit Reasons: Rheumatoid Arthritis Intake Note: Pt presents today for follow up and test results. She was last seen by Tiny Young on 01/06/23. Currently on MTX 6 tabs weekly and folic acid. Allergies sulfasalazine Allergy (Intermediate, Verified 08/12/23 13:19) nausea, vomiting Medication List - Last Reconciled 08/12/23 by Maria Guadalupe Leyva MD acetaminophen (Tylenol) 650 mg PO Q6H PRN ascorbate calcium (vitamin C) 500 mg PO DAILY calcium carbonate-vitamin D3 600 mg-10 mcg (400 unit) (Calcium 600 + D(3)) 1 tab PO BID folic acid 1 mg PO DAILY losartan 100 mg PO DAILY methotrexate sodium 15 mg (6 x 2.5 mg) PO QWEEK HPI HPI Comments History of Present Illness Details 87yoF presents for follow-up of seropositive rheumatoid arthritis (RF++CCP++). Last seen 12/2022. On 6 tabs MTX weekly and folic acid daily. She continues to tolerate her medication without issue. Also has osteopenia with high FRAX score, treated with 5 years of alendronate, she took her last dose the end of July 2022. Patient states that she is feeling well. She denies joint pain, swelling or stiffness. She denies any new concerns today. She denies any recent falls or fractures. Hx of broken left wrist slipping on stairs in 2010. ? PFSH Medical History Breast cancer 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 organ or systems involvement Surgical History H/O left breast biopsy Hx of cholecystectomy Hx of tonsillectomy Family History Father CVD (cardiovascular disease) Social History Household Members: None Housing: House Alcohol intake: current Alcohol intake frequency: holidays/special occasions only Alcohol type: wine Patient Tobacco Use Status: Never used Tobacco e-Cigarette/Vaping Use: Never Used Review of Systems Musc Denies arthralgias and Denies joint swelling Physical Exam Vital Signs: Last Vital Signs Temp 97.3 F 08/12/23 13:16 Pulse 68 08/12/23 13:16 BP 140/88 H 08/12/23 13:16 Pulse Ox 95 08/12/23 13:16 BMI result Body Mass Index 32.9 Const General: cooperative, healthy appearing and comfortable Nutritional Appearance: obese Orientation/consciousness: patient oriented x3 Limitations: no limitations HEENT Head: Yes normocephalic and Yes atraumatic Mouth: moist mucous membranes Resp Effort & Inspection: normal respiratory effort and able to speak in complete se ntences Auscultation: clear to auscultation bilaterally Cardio Rate: regular rate Rhythm: regular rhythm Heart sounds: S1 normal heart sound present GI Inspection: No distended Palpation (GI): Soft to palpation and nontender Skin General skin exam: no rashes or lesions noted Neuro General: patient oriented x3 Extrem Other: No active synovitis Firm nodule on the palmar aspect of the left index and left wrist Nontender to palpation Likely rheumatoid nodule Normal range of motion of hands, wrists, elbows, shoulders, knees without pain Assessment & Plan Assessment & Plan (1) Seropositive rheumatoid arthritis: Code(s): M05.9 - Rheumatoid arthritis with rheumatoid factor, unspecified Plan: Seropositive rheumatoid arthritis (RF++ CCP++) on 15 mg methotrexate weekly and folic acid 1 mg daily.? Patient has been in remission for a long period of time. Continue methotrexate 15 mg once weekly and folic acid 1 mg daily Labs in 3 months and in 6 months before next visit Will consider reducing methotrexate dose next visit (2) Osteopenia after menopause: Comment: Alendronate: July 2017- July 2022. Code(s): M85.80 - Other specified disorders of bone density and structure, unspecified site Plan: ?DEXA (09/18): T score -1.7 in femoral neck Osteopenia with high FRAX score.?Repeat DEXA (10/20) showed Osteopenia T-score value of -1.5 in the femoral neck improved from 2019. She has completed 5 years of Fosamax with improvement in bone density while taking this. Her last dose of Fosamax was in 09/2022. Will continue to monitor and repeat DEXA at the 2022. continue calcium and vitamin-D supplement. 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
== END 2023-08-12 13:43 | disposition home or self-care (01) ==
PROVIDERS: PCP Internal Medicine; Visit Provider Student in an Organized Health Care Education/Training Program
DX: M05.79 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 organ or systems involvement (principal); Z79.631 Long term (current) use of antimetabolite agent; M85.80 Other specified disorders of bone density and structure, unspecified site
CPT/HCPCS: 99214

== ENCOUNTER → 2023-08-12 13:07 | Outpatient (BNVA) | payer MEDICARE, SELFPAY | PROVIDERS: PCP Internal Medicine; Visit Provider Student in an Organized Health Care Education/Training Program | DX: M05.9 Rheumatoid arthritis with rheumatoid factor, unspecified (principal); M85.80 Other specified disorders of bone density and structure, unspecified site; Z79.899 Other long term (current) drug therapy | CPT/HCPCS: 99212 ==

== ENCOUNTER 2023-11-17 14:03 | Outpatient (REF) | payer MEDICARE, SELFPAY ==
--- NOTE | ~2023-11-17 | MM_ITS ---
EXAMINATION: MM SCREENING DIGITAL BREAST TOMOSYNTHESIS, BILATERAL CLINICAL INFORMATION: Screening. Asymptomatic. The patient is status post left breast surgery for cancer and status post benign, percutaneous biopsy and the left treatment bed. COMPARISON: Mammography: This study is compared with prior exams dating back to 2018. TECHNIQUE: Digital breast tomosynthesis is performed in both the craniocaudal and mediolateral oblique views along with computer-aided detection (CAD). Synthesized 2D images are generated from the tomosynthesis. FINDINGS: There are scattered areas of fibroglandular density (ACR BI-RADS breast composition Category b). There are no significant masses, abnormal calcifications, or other abnormalities. There is a tissue marker present in the central portion of the left breast from prior benign percutaneous biopsy. There are postsurgical changes from prior left breast cancer treatment. MM/MM tomosynthesis screening BI IMPRESSION: No mammographic evidence of malignancy. ASSESSMENT: BI-RADS BI-RADS 2 - Benign Findings RECOMMENDATION: Routine annual mammography screening. 1 year F/U This examination should not preclude the clinical evaluation of a suspicious palpable abnormality. This patient's information was entered into a reminder system with a target due date for their next mammogram.
--- NOTE | ~2023-11-17 | MM_ITS ---
EXAMINATION: BONE DENSITOMETRY CLINICAL INDICATION: Other specified disorders of bone density and structure, unspecified site. COMPARISON: Previous BD dated 10/14/2021 and baseline BD dated 09/09/2009. TECHNIQUE: Using a [employer] DXA System (software version: 13.1) manufactured by [employer], dual-energy x-ray absorptiometry was performed of the lumbar spine and left hip. The images are of good technical quality. Summary results are attached. FINDINGS: LEFT FEMUR, NECK: Current: BMD 0.504 g/cm2, Z-score -1.8, T-score -3.8, osteoporosis. Prior: BMD 0.835 g/cm2. Baseline: BMD 0.913 g/cm2. LEFT FEMUR, TOTAL: Current: BMD 0.472 g/cm2, Z-score -2.4, T-score -4.3, osteoporosis, 44.6% decrease from previous, 47.5% decrease from baseline (<5% change is not significant). Prior: BMD 0.852 g/cm2. Baseline: BMD 0.899 g/cm2. AP SPINE L1-L2 (excluding L3 and L4): The data of L1-L4 has been changed to exclude the L3 and L4 vertebral bodies, because channel sclerosis at these levels may cause overestimation of lumbar spine density. Current: BMD 1.103 g/cm2, Z-score 0.8, T-score -0.5, normal, 2.6% decrease from previous, 2.3% decrease from baseline (<5% change is not significant). Prior: BMD 1.132 g/cm2. Baseline: BMD 1.129 g/cm2. IDENTIFIED RISK FACTORS: Menopause, history of fracture (adult), rheumatoid arthritis. HISTORY OF FRACTURE: Wrist. MEDICATIONS: Calcium, vitamin D. MM/XR DEXA axial skeleton IMPRESSION: 1. DIAGNOSIS: Severe osteoporosis based on the lowest T-score value of -4.3 in the total femur, and the history of a wrist fracture, applying World Health Organization criteria. 2. 10-YEAR FRACTURE RISK PREDICTION, FRAX: According to the guidelines, FRAX calculation should only be performed on patients in the osteopenia bone density category. Therefore, FRAX was not performed on this patient. 3. Treatment Recommendations: NOF guidelines recommend consideration for treatment in postmenopausal women and men age 50 and older presenting with the following: -A hip or vertebral (clinical or morphometric) fracture. -T-score less than or equal to -2.5 at the femoral neck or spine after appropriate evaluation to exclude secondary causes. -Low bone mass at the hip or spine and a 10-year fracture probability by FRAX of greater than or equal to 3% for hip fracture or greater than or equal to 20% for major osteoporotic fracture based on the [place] adapted WHO algorithm. 4. Other Recommendations: All treatment decisions require clinical judgment and consideration of individual patient factors, including patient preferences, comorbidities, previous drug use, risk factors not captured in the FRAX model (e.g. frailty, falls, vitamin D deficiency, increased bone turnover, interval significant decline in bone density) and possible under or overestimation of fracture risk by FRAX. Additional medical evaluation for secondary cause of low bone mineral density may be appropriate. FUTURE SCAN RECOMMENDATION: People with diagnosed cases of osteoporosis or at high risk for fracture should have regular bone mineral density tests. For patients eligible for Medicare, routine testing is allowed once every 2 years. The testing frequency can be increased to one year for patients who have rapidly progressing disease, those who are receiving or discontinuing medical therapy to restore bone mass, or have additional risk factors.
== END 2023-11-17 14:04 | disposition home or self-care (01) ==
LOC: HO.MAMMO 14:03
PROVIDERS: PCP Internal Medicine; Visit Provider Student in an Organized Health Care Education/Training Program
DX: Z13.820 Encounter for screening for osteoporosis (principal); Z12.31 Encounter for screening mammogram for malignant neoplasm of breast; Z78.0 Asymptomatic menopausal state; M81.0 Age-related osteoporosis without current pathological fracture
CPT/HCPCS: 77063; 77067; 77080

== ENCOUNTER → 2023-11-17 14:30 | Outpatient (BNV) | payer MEDICARE, SELFPAY | PROVIDERS: PCP Internal Medicine; Visit Provider Radiology Diagnostic Radiology | DX: Z12.31 Encounter for screening mammogram for malignant neoplasm of breast (principal) | CPT/HCPCS: 77063; 77067 ==

== ENCOUNTER 2023-11-22 11:52 | Outpatient (REF) | payer MEDICARE, SELFPAY ==
[2023-11-22 12:28] LABS: MANUAL DIFF FLAG NO
[2023-11-22 13:59] LABS: Basophils Percent Auto 0.4 % (0-2); Eosinophils Absolute Auto 0.1 X10*3/uL (0.0-0.4); Hematocrit 40.1 % (37.0-47.0); Hemoglobin 12.9 g/dl (12.0-16.0); Imm Gran Abs Auto 0.02 X10*3/uL (0.00-0.03); Imm Gran Pct Auto 0.3 % (0.0-0.4); Lymphocytes Absolute Auto 1.4 X10*3/uL (1.2-4.9); Lymphocytes Percent Auto 20.6 % (20-40); Mean Corpuscular HGB Conc 32.2 g/dl (31.0-35.0); Mean Corpuscular Hemoglobin 31.3 pg (27.0-33.0); Mean Corpuscular Volume 97.3 fL (80.0-98.0); Mean Platelet Volume 10.5 fL (9.4-12.3); Monocytes Absolute Auto 0.5 X10*3/uL (0.1-1.2); Neutrophils Percent Auto 70.7 % (45-73); Platelet Count 206 X10*3/uL (160-400); Red Blood Count 4.12 X10*6/uL (4.20-5.50)
[2023-11-22 14:36] LABS: Erythrocyte Sedimentation Rate 27 MM/HR (0-20)
[2023-11-22 14:52] LABS: Alanine Aminotransferase 20 U/L (0-31); Albumin Level 3.8 g/dL (3.5-5.0); Alkaline Phosphatase 87 U/L (39-117); Anion Gap 11 (12-20); Aspartate Amino Transferase 26 U/L (5-31); Bilirubin Total 0.5 mg/dL (0.0-1.0); Blood Urea Nitrogen 18 mg/dL (9-16); Calcium 9.7 mg/dL (8.4-10.2); Carbon Dioxide 28 mmol/L (22-29); Chloride 104 mmol/L (96-108); Estimated Glomerular Filt Rate > 60; Glucose Random 93 mg/dL (60-115); Potassium 4.8 mmol/L (3.3-5.1); Sodium 138 mmol/L (135-145); Total Protein 7.1 g/dL (6.5-8.0)
== END 2023-11-22 11:53 | disposition home or self-care (01) ==
LOC: HO.LAB 11:52
PROVIDERS: PCP Internal Medicine; Visit Provider Student in an Organized Health Care Education/Training Program
DX: M05.9 Rheumatoid arthritis with rheumatoid factor, unspecified (principal); Z79.631 Long term (current) use of antimetabolite agent
CPT/HCPCS: 36415; 80053; 85025; 85652; 86140

== ENCOUNTER 2023-11-23 12:28 | Outpatient (AMB) | payer MEDICARE, SELFPAY ==
--- NOTE | 2023-11-23 12:31 | A.OFFVIS_ITS ---
Intake Vital Signs 11/23/23 12:39 Height 5 ft 4 in Weight 195 lb 1.745 oz BMI 33.5 BP 140/80 H Blood Pressure Location Lt brachial Position Sitting Pulse 80 Pulse Source Pulse Oximeter Temp 97 F Temp Source Skin Pulse Oximetry (%) 94 Oxygen Delivery Method Room Air Intake Visit Reasons: discuss different treatment option Intake Note: Patient presents today to discuss different tx options. 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: No Accompanied by: Self / Same As Patient Allergies sulfasalazine Allergy (Intermediate, Verified 11/23/23 12:31) nausea, vomiting Medication List - Last Reconciled 11/23/23 by Maria Guadalupe Leyva MD acetaminophen (Tylenol) 650 mg PO Q6H PRN ascorbate calcium (vitamin C) 500 mg PO DAILY calcium carbonate-vitamin D3 600 mg-10 mcg (400 unit) (Calcium 600 + D(3)) 1 tab PO BID folic acid 1 mg PO DAILY losartan 100 mg PO DAILY methotrexate sodium 15 mg (6 x 2.5 mg) PO QWEEK HPI HPI Comments History of Present Illness Details 87yoF presents for follow-up of seropositive rheumatoid arthritis (RF++CCP++). And osteoporosis. Her recent DEXA scan showed significant wors ening. She is here to discuss treatment options. She patient denies any change in her diet or lifestyle. She takes vitamin-D and calcium daily. She has not had any recent falls. On 6 tabs MTX weekly and folic acid daily. She continues to tolerate her medication without issue. Patient states that she is feeling well. She denies joint pain, swelling or stiffness. She denies any new concerns today. She denies any recent falls or fractures. Hx of broken left wrist slipping on stairs in 2010. ? [facility] Medical History Breast cancer 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 organ or systems involvement Surgical History H/O left breast biopsy Hx of cholecystectomy Hx of tonsillectomy Family History Father CVD (cardiovascular disease) Social History Household Members: None Housing: House Alcohol intake: current Alcohol intake frequency: holidays/special occasions only Alcohol type: wine Patient Tobacco Use Status: Never used Tobacco e-Cigarette/Vaping Use: Never Used Review of Systems Musc Denies arthralgias and Denies joint swelling Physical Exam Vital Signs: Last Vital Signs Temp 97 F 11/23/23 12:39 Pulse 80 11/23/23 12:39 BP 140/80 H 11/23/23 12:39 Pulse Ox 94 11/23/23 12:39 Oxygen Delivery Method Room Air 11/23/23 12:39 BMI result Body Mass Index 33.5 Const General: cooperative, healthy appearing and comfortable Nutritional Appearance: obese Orientation/consciousness: patient oriented x3 Limitations: no limitations HEENT Head: Yes normocephalic and Yes atraumatic Mouth: moist mucous membranes Resp Effort & Inspection: normal respiratory effort and able to speak in complete se ntences Cardio Rate: regular rate Rhythm: regular rhythm Skin General skin exam: no rashes or lesions noted Neuro General: patient oriented x3 Extrem Other: No active synovitis Firm nodule on the palmar aspect of the left index and left wrist Nontender to palpation Likely rheumatoid nodule Normal range of motion of hands, wrists, elbows, shoulders, knees without pain Gait is steady Results Reviewed Results Reviewed: CLINICAL INDICATION: Other specified disorders of bone density and structure, unspecified site. COMPARISON: Previous BD dated 10/14/2021 and baseline BD dated 09/09/2009. TECHNIQUE: Using a [employer] DXA System (software version: 13.1) manufactured by [employer], dual-energy x-ray absorptiometry was performed of the lumbar spine and left hip. The images are of good technical quality. Summary results are attached. FINDINGS: LEFT FEMUR, NECK: Current: BMD 0.504 g/cm2, Z-score -1.8, T-score -3.8, osteoporosis. Prior: BMD 0.835 g/cm2. Baseline: BMD 0.913 g/cm2. LEFT FEMUR, TOTAL: Current: BMD 0.472 g/cm2, Z-score -2.4, T-score -4.3, osteoporosis, 44.6% decrease from previous, 47.5% decrease from baseline (<5% change is not significant). Prior: BMD 0.852 g/cm2. Baseline: BMD 0.899 g/cm2. AP SPINE L1-L2 (excluding L3 and L4): The data of L1-L4 has been changed to exclude the L3 and L4 vertebral bodies, because channel sclerosis at these levels may cause overestimation of lumbar spine density. Current: BMD 1.103 g/cm2, Z-score 0.8, T-score -0.5, normal, 2.6% decrease from previous, 2.3% decrease from baseline (<5% change is not significant). Prior: BMD 1.132 g/cm2. Baseline: BMD 1.129 g/cm2. IDENTIFIED RISK FACTORS: Menopause, history of fracture (adult), rheumatoid arthritis. HISTORY OF FRACTURE: Wrist. MEDICATIONS: Calcium, vitamin D. MM/XR DEXA axial skeleton IMPRESSION: 1. DIAGNOSIS: Severe osteoporosis based on the lowest T-score value of -4.3 in the total femur, and the history of a wrist fracture, applying World Health Organization criteria. Assessment & Plan Assessment & Plan (1) Seropositive rheumatoid arthritis: Code(s): M05.9 - Rheumatoid arthritis with rheumatoid factor, unspecified Plan: Seropositive rheumatoid arthritis (RF++ CCP++) on 15 mg methotrexate weekly and folic acid 1 mg daily.? Patient has been in remission for a long period of time. Continue methotrexate 15 mg once weekly and folic acid 1 mg daily Labs in 3 months and in 6 months before next visit Can consider reducing methotrexate dose in the future (2) Osteopenia after menopause: Comment: Alendronate: July 2017- July 2022. Code(s): M85.80 - Other specified disorders of bone density and structure, unspecified site Plan: ?DEXA (09/18): T score -1.7 in femoral neck Osteopenia with high FRAX score.?Repeat DEXA (10/20) showed Osteopenia T-score value of -1.5 in the femoral neck improved from 2019. She has completed 5 years of Fosamax with improvement in bone density while taking this. Her last dose of Fosamax was in 07/2022. Her repeat bone density showed significantly worsening bone density. T-score is-4.3 at the femoral neck. Will need to restart medications for osteoporosis. Given significant reduction in bone density I do not believe bisphosphonate would be appropriate for this patient. Discussed risks and benefits of Prolia. Patient agreed to proceed. Will start prior authorization for Prolia (3) [facility] methotrexate user: Code(s): Z79.899 - Other ocean transportation intermediary (current) drug therapy Plan: Monitor safety labs Plan I spent 26 minutes reviewing patient's chart, evaluating patient, ordering diagnostic workup, counseling patient and documenting in the chart Orders: Orders Complete Blood Count Auto Diff 6 Months Z79.89 - Other ocean transportation intermediary (current) drug therapy Comprehensive Met. 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
[2023-11-23 12:39] VITALS: BP 140/80; PULSE 80; TEMP 36.1; O2SAT 94; BMI 33.5
== END 2023-11-23 13:07 | disposition home or self-care (01) ==
LOC: HO.RHE 12:28
PROVIDERS: PCP Internal Medicine; Visit Provider Student in an Organized Health Care Education/Training Program
DX: M05.79 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 organ or systems involvement (principal); M85.80 Other specified disorders of bone density and structure, unspecified site; Z79.899 Other long term (current) drug therapy; M81.0 Age-related osteoporosis without current pathological fracture
CPT/HCPCS: 99214

== ENCOUNTER → 2023-11-23 12:28 | Outpatient (BNVA) | payer MEDICARE, SELFPAY | PROVIDERS: PCP Internal Medicine; Visit Provider Student in an Organized Health Care Education/Training Program | DX: M05.9 Rheumatoid arthritis with rheumatoid factor, unspecified (principal); M85.80 Other specified disorders of bone density and structure, unspecified site; Z79.899 Other long term (current) drug therapy | CPT/HCPCS: 99212 ==

== ENCOUNTER 2023-12-21 10:39 | Outpatient (AMB) | payer MEDICARE, SELFPAY ==
--- NOTE | 2023-12-21 11:20 | AM.OFFVISNUR ---
Intake Intake Visit Reasons: PROLIA Allergies sulfasalazine Allergy (Intermediate, Verified 11/23/23 12:31) nausea, vomiting Nursing Note Patient here for first Prolia injection. I provided patient with all pertinent information regarding Prolia and what side effects to look for. Patient was also provided a handout with Prolia information. She has no questions at this time. Patient verifies allergies. Patient advised to continue calcium and vitamin D. I administered Prolia on left arm. Patient tolerated injection well. 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
== END 2023-12-21 11:12 | disposition home or self-care (01) ==
PROVIDERS: PCP Internal Medicine; Visit Provider Student in an Organized Health Care Education/Training Program
DX: M81.0 Age-related osteoporosis without current pathological fracture (principal)

== ENCOUNTER → 2023-12-21 10:39 | Outpatient (BNVA) | payer MEDICARE, SELFPAY | PROVIDERS: PCP Internal Medicine; Visit Provider Student in an Organized Health Care Education/Training Program | DX: M81.0 Age-related osteoporosis without current pathological fracture (principal) | CPT/HCPCS: 96372; J0897 ==

== ENCOUNTER 2024-05-22 09:13 | Outpatient (REF) | payer MEDICARE, SELFPAY ==
[2024-05-22 09:25] LABS: MANUAL DIFF FLAG NO
[2024-05-22 10:23] LABS: Basophils Percent Auto 0.5 % (0-2); Eosinophils Absolute Auto 0.1 X10*3/uL (0.0-0.4); Hematocrit 38.4 % (37.0-47.0); Hemoglobin 12.8 g/dl (12.0-16.0); Imm Gran Abs Auto 0.02 X10*3/uL (0.00-0.03); Imm Gran Pct Auto 0.3 % (0.0-0.4); Lymphocytes Absolute Auto 1.4 X10*3/uL (1.2-4.9); Lymphocytes Percent Auto 24.1 % (20-40); Mean Corpuscular HGB Conc 33.3 g/dl (31.0-35.0); Mean Corpuscular Hemoglobin 31.8 pg (27.0-33.0); Mean Corpuscular Volume 95.5 fL (80.0-98.0); Monocytes Absolute Auto 0.5 X10*3/uL (0.1-1.2); Monocytes Percent Auto 8.1 % (2-11); Neutrophils Absolute Auto 3.8 x10*3/uL (2.0-8.3); Platelet Count 182 X10*3/uL (160-400); Red Blood Count 4.02 X10*6/uL (4.20-5.50); White Blood Count 5.8 X10*3/uL (4.8-10.8)
[2024-05-22 11:03] LABS: Alanine Aminotransferase 18 U/L (0-31); Albumin Level 3.9 g/dL (3.5-5.0); Alkaline Phosphatase 68 U/L (39-117); Anion Gap 16 (12-20); Aspartate Amino Transferase 24 U/L (5-31); Bilirubin Total 0.7 mg/dL (0.0-1.0); Blood Urea Nitrogen 17 mg/dL (9-16); Calcium 9.9 mg/dL (8.4-10.2); Carbon Dioxide 24 mmol/L (22-29); Chloride 103 mmol/L (96-108); Cholesterol 201 mg/dL (<200); Estimated Glomerular Filt Rate > 60; Glucose Fasting 102 mg/dL (60-99); HDL Cholesterol 59 mg/dL (>40); LDL Cholesterol Calculated 121 mg/dL (<100); Potassium 4.3 mmol/L (3.3-5.1); Sodium 139 mmol/L (135-145); Total Protein 6.9 g/dL (6.5-8.0); Triglycerides 106 mg/dL (<150)
== END 2024-05-22 09:14 | disposition home or self-care (01) ==
LOC: HO.LAB 09:13
PROVIDERS: PCP Internal Medicine; Visit Provider Internal Medicine
DX: R53.83 Other fatigue (principal); E78.5 Hyperlipidemia, unspecified
CPT/HCPCS: 36415; 80053; 80061; 85025

== ENCOUNTER 2024-06-13 11:37 | Outpatient (REF) | payer MEDICARE, SELFPAY ==
[2024-06-13 11:51] LABS: MANUAL DIFF FLAG NO
[2024-06-13 12:52] LABS: Alanine Aminotransferase 28 U/L (0-31); Albumin Level 3.9 g/dL (3.5-5.0); Alkaline Phosphatase 88 U/L (39-117); Anion Gap 12 (12-20); Aspartate Amino Transferase 30 U/L (5-31); Bilirubin Total 0.6 mg/dL (0.0-1.0); Blood Urea Nitrogen 18 mg/dL (9-16); C Reactive Protein 2.15 mg/dL (< or = 0.50); Calcium 9.7 mg/dL (8.4-10.2); Carbon Dioxide 27 mmol/L (22-29); Chloride 105 mmol/L (96-108); Estimated Glomerular Filt Rate > 60; Glucose Random 92 mg/dL (60-115); Potassium 4.6 mmol/L (3.3-5.1); Sodium 139 mmol/L (135-145)
[2024-06-13 13:20] LABS: Erythrocyte Sedimentation Rate 30 MM/HR (0-20)
[2024-06-13 13:42] LABS: Basophils Percent Auto 0.6 % (0-2); Eosinophils Absolute Auto 0.1 X10*3/uL (0.0-0.4); Eosinophils Percent Auto 0.8 % (0-4); Hemoglobin 12.5 g/dl (12.0-16.0); Imm Gran Abs Auto 0.02 X10*3/uL (0.00-0.03); Imm Gran Pct Auto 0.3 % (0.0-0.4); Lymphocytes Absolute Auto 1.7 X10*3/uL (1.2-4.9); Lymphocytes Percent Auto 27.2 % (20-40); Mean Corpuscular HGB Conc 32.9 g/dl (31.0-35.0); Mean Corpuscular Hemoglobin 31.3 pg (27.0-33.0); Mean Corpuscular Volume 95.2 fL (80.0-98.0); Mean Platelet Volume 10.6 fL (9.4-12.3); Monocytes Absolute Auto 0.5 X10*3/uL (0.1-1.2); Monocytes Percent Auto 8.2 % (2-11); Neutrophils Absolute Auto 3.9 x10*3/uL (2.0-8.3); Neutrophils Percent Auto 62.9 % (45-73); Platelet Count 188 X10*3/uL (160-400); Red Blood Count 3.99 X10*6/uL (4.20-5.50); Red Cell Distribution Width 13.7 % (11.0-16.0); White Blood Count 6.2 X10*3/uL (4.8-10.8)
[2024-06-17 15:58] LABS: Vitamin D 25-OH, D2 <4 ng/mL; Vitamin D 25-OH, D3 34 ng/mL; Vitamin D 25-OH, Total 34 ng/mL (30-100)
== END 2024-06-13 11:38 | disposition home or self-care (01) ==
LOC: HO.LAB 11:37
PROVIDERS: PCP Internal Medicine; Visit Provider Student in an Organized Health Care Education/Training Program
DX: E55.9 Vitamin D deficiency, unspecified (principal); Z79.899 Other long term (current) drug therapy
CPT/HCPCS: 36415; 80053; 82306; 85025; 85652; 86140

== ENCOUNTER 2024-06-26 10:13 | Outpatient (AMB) | payer MEDICARE, SELFPAY ==
--- NOTE | 2024-06-26 10:22 | MHC.OFFVIS ---
Vital Signs 06/26/24 10:24 Height 5 ft 4 in Weight 195 lb 8.8 oz BMI 33.6 BP 142/80 H Blood Pressure Location Rt brachial Position Sitting Pulse 79 Pulse Source Pulse Oximeter Pulse Oximetry (%) 96 Oxygen Delivery Method Room Air Intake Visit Reasons: RA/Prolia B&B Intake Note: Patient presents for RA/Prolia injection. Allergies sulfasalazine Allergy (Intermediate, Verified 06/26/24 10:25) nausea, vomiting Medication List - Last Reconciled 06/26/24 by Maria Guadalupe Leyva MD acetaminophen (Tylenol) 650 mg PO Q6H PRN ascorbate calcium (vitamin C) 500 mg PO DAILY calcium carbonate-vitamin D3 600 mg-10 mcg (400 unit) (Calcium 600 + D(3)) 1 tab PO BID folic acid 1 mg PO DAILY losartan 100 mg PO DAILY methotrexate sodium 15 mg (6 x 2.5 mg) PO QWEEK HPI Comments Details: 88yoF presents for follow-up of seropositive rheumatoid arthritis (RF++CCP++). And osteoporosis. She states that she is doing fairly well overall. She states that she gets minimal up some joint pains that she attributes to changes in her diet. She wonders whether a specific diet would be helpful. Hx of broken left wrist slipping on stairs in 2010. ? [facility] Medical History (Updated 06/26/24 @ 10:58 by Maria Guadalupe Leyva MD) Breast cancer 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 organ or systems involvement Surgical History H/O left breast biopsy Hx of cholecystectomy Hx of tonsillectomy Family History Father CVD (cardiovascular disease) Social History Household Members: None Housing: House Alcohol intake: current Alcohol intake frequency: holidays/special occasions only Alcohol type: wine Patient Tobacco Use Status: Never used Tobacco e-Cigarette/Vaping Use: Never Used Review of Systems Musc Denies arthralgias and Denies joint swelling Physical Exam Vital Signs: Last Vital Signs Pulse 79 06/26/24 10:24 BP 142/80 H 06/26/24 10:24 Pulse Ox 96 06/26/24 10:24 Oxygen Delivery Method Room Air 06/26/24 10:24 BMI result Body Mass Index 33.6 Const General: cooperative, healthy appearing and comfortable Nutritional Appearance: obese Orientation/consciousness: patient oriented x3 Limitations: no limitations HEENT Head: Yes normocephalic and Yes atraumatic Mouth: moist mucous membranes Resp Effort & Inspection: normal respiratory effort and able to speak in complete sentences Cardio Rate: regular rate Rhythm: regular rhythm Skin General skin exam: no rashes or lesions noted Neuro General: patient oriented x3 Extrem Other: No active synovitis Normal range of motion of hands, wrists, elbows, shoulders, knees without pain Gait is steady Office Meds Prolia 60 mg/mL subcutaneous syringe Performing Provider: Maria Guadalupe Leyva MD Performing Location: [facility] [place] [facility] Administered by: Jessi Hernandez RN on 06/26/24 10:39 Dose Route Admin Location Dispensed Lot Number Expiration Date [employer] 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 Pt tolerated injection well. Pt denies any adverse reactions with previous injections. Results Reviewed Results Reviewed: CLINICAL INDICATION: Other specified disorders of bone density and structure, unspecified site. COMPARISON: Previous BD dated 10/14/2021 and baseline BD dated 09/09/2009. TECHNIQUE: Using a [employer] DXA System (software version: 13.1) manufactured by [employer], dual-energy x-ray absorptiometry was performed of the lumbar spine and left hip. The images are of good technical quality. Summary results are attached. FINDINGS: LEFT FEMUR, NECK: Current: BMD 0.504 g/cm2, Z-score -1.8, T-score -3.8, osteoporosis. Prior: BMD 0.835 g/cm2. Baseline: BMD 0.913 g/cm2. LEFT FEMUR, TOTAL: Current: BMD 0.472 g/cm2, Z-score -2.4, T-score -4.3, osteoporosis, 44.6% decrease from previous, 47.5% decrease from baseline (<5% change is not significant). Prior: BMD 0.852 g/cm2. Baseline: BMD 0.899 g/cm2. AP SPINE L1-L2 (excluding L3 and L4): The data of L1-L4 has been changed to exclude the L3 and L4 vertebral bodies, because channel sclerosis at these levels may cause overestimation of lumbar spine density. Current: BMD 1.103 g/cm2, Z-score 0.8, T-score -0.5, normal, 2.6% decrease from previous, 2.3% decrease from baseline (<5% change is not significant). Prior: BMD 1.132 g/cm2. Baseline: BMD 1.129 g/cm2. IDENTIFIED RISK FACTORS: Menopause, history of fracture (adult), rheumatoid arthritis. HISTORY OF FRACTURE: Wrist. MEDICATIONS: Calcium, vitamin D. MM/XR DEXA axial skeleton IMPRESSION: 1. DIAGNOSIS: Severe osteoporosis based on the lowest T-score value of -4.3 in the total femur, and the history of a wrist fracture, applying World Health Organization criteria. Assessment & Plan Assessment & Plan (1) Seropositive rheumatoid arthritis: Code(s): M05.9 - Rheumatoid arthritis with rheumatoid factor, unspecified Category: Medical Plan: Seropositive rheumatoid arthritis (RF++ CCP++) on 15 mg methotrexate weekly and folic acid 1 mg daily.? Patient has been in remission for a long period of time. Continue methotrexate 15 mg once weekly and folic acid 1 mg daily Labs before next visit in 3 months (2) 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: Comment: Alendronate: July 2017- July 2022. Code(s): M81.0 - Age-related osteoporosis without current pathological fracture Category: Medical Plan: ?DEXA (09/18):? T score -1.7 in femoral neck Osteopenia with high FRAX score. Repeat DEXA? (10/20) showed Osteopenia T-score value of -1.5 in the femoral neck improved from 2019.? She has completed 5 years of Fosamax with improvement in bone density while taking this.? Her last dose of Fosamax was in 07/2022.? Her repeat bone density showed significantly worsening bone density.? T-score is-4.3 at the femoral neck. Prolia was started 12/2023, she received her 2nd dose today. 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: Code(s): Z79.899 - Other shelter (current) drug therapy Category: Medical Plan: Monitor safety labs Plan I spent 26 minutes reviewing patient's chart, evaluating patient, ordering diagnostic workup, counseling patient and documenting in the chart Orders: Orders AMB Denosumab Injection Practice Supplied Today M81.0 - Age-related osteoporosis without current pathological fracture Complete Blood Count Auto Diff 6 Months M05.9 - Rheumatoid arthritis with rheumatoid factor, unspecified, Z79.899 - Other shelter (current) drug therapy Complete Blood Count Auto Diff 3 Months M05.9 - Rheumatoid arthritis with rheumatoid factor, unspecified, Z79.899 - Other rn long term care (current) drug therapy Erythrocyte Sedimentation Rate 3 Months M05.9 - Rheumatoid arthritis with rheumatoid factor, unspecified, Z79.899 - Other shelter (current) drug therapy Comprehensive Met. Panel 6 Months M05.9 - Rheumatoid arthritis with rheumatoid factor, unspecified, Z79.899 - Other shelter (current) drug therapy C Reactive Protein 3 Months M05.9 - Rheumatoid arthritis with rheumatoid factor, unspecified, Z79.899 - Other rn long term care (current) drug therapy Erythrocyte Sedimentation Rate 6 Months M05.9 - Rheumatoid arthritis with rheumatoid factor, unspecified, Z79.899 - Other shelter (current) drug therapy Vitamin D 25-OH (D2 and D3) 6 Months E55.9 - Vitamin D deficiency, unspecified Comprehensive Met. 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
[2024-06-26 10:24] VITALS: BP 142/80; PULSE 79; O2SAT 96; BMI 33.6
== END 2024-06-26 10:53 | disposition home or self-care (01) ==
PROVIDERS: PCP Internal Medicine; Visit Provider Student in an Organized Health Care Education/Training Program
DX: M05.79 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 organ or systems involvement (principal); M81.0 Age-related osteoporosis without current pathological fracture; Z79.899 Other long term (current) drug therapy
CPT/HCPCS: 99214

== ENCOUNTER → 2024-06-26 10:13 | Outpatient (BNVA) | payer MEDICARE, SELFPAY | PROVIDERS: PCP Internal Medicine; Visit Provider Student in an Organized Health Care Education/Training Program | DX: M05.9 Rheumatoid arthritis with rheumatoid factor, unspecified (principal); M81.0 Age-related osteoporosis without current pathological fracture; Z79.631 Long term (current) use of antimetabolite agent; Z79.899 Other long term (current) drug therapy | CPT/HCPCS: 96372; 99212; J0897 ==

== ENCOUNTER 2024-08-31 11:43 | Outpatient (REF) | payer MEDICARE, SELFPAY ==
[2024-08-31 12:01] LABS: MANUAL DIFF FLAG NO
[2024-08-31 12:33] LABS: Basophils Percent Auto 0.7 % (0-2); Eosinophils Percent Auto 0.7 % (0-4); Hematocrit 37.4 % (37.0-47.0); Hemoglobin 12.5 g/dl (12.0-16.0); Imm Gran Abs Auto 0.02 X10*3/uL (0.00-0.03); Imm Gran Pct Auto 0.3 % (0.0-0.4); Lymphocytes Absolute Auto 1.8 X10*3/uL (1.2-4.9); Lymphocytes Percent Auto 29.2 % (20-40); Mean Corpuscular HGB Conc 33.4 g/dl (31.0-35.0); Mean Corpuscular Hemoglobin 31.6 pg (27.0-33.0); Mean Corpuscular Volume 94.4 fL (80.0-98.0); Mean Platelet Volume 9.6 fL (9.4-12.3); Monocytes Absolute Auto 0.5 X10*3/uL (0.1-1.2); Monocytes Percent Auto 7.4 % (2-11); Neutrophils Absolute Auto 3.8 x10*3/uL (2.0-8.3); Neutrophils Percent Auto 61.7 % (45-73); Platelet Count 265 X10*3/uL (160-400); Red Blood Count 3.96 X10*6/uL (4.20-5.50); Red Cell Distribution Width 13.5 % (11.0-16.0); White Blood Count 6.1 X10*3/uL (4.8-10.8)
[2024-08-31 13:09] LABS: Alanine Aminotransferase 21 U/L (0-31); Albumin Level 3.8 g/dL (3.5-5.0); Alkaline Phosphatase 72 U/L (39-117); Anion Gap 11 (12-20); Aspartate Amino Transferase 28 U/L (5-31); Bilirubin Total 0.5 mg/dL (0.0-1.0); Blood Urea Nitrogen 17 mg/dL (9-16); C Reactive Protein 1.31 mg/dL (< or = 0.50); Carbon Dioxide 27 mmol/L (22-29); Chloride 106 mmol/L (96-108); Erythrocyte Sedimentation Rate 44 MM/HR (0-20); Estimated Glomerular Filt Rate > 60; Glucose Random 91 mg/dL (60-115); Potassium 4.4 mmol/L (3.3-5.1); Sodium 140 mmol/L (135-145); Total Protein 7.1 g/dL (6.5-8.0)
== END 2024-08-31 11:44 | disposition home or self-care (01) ==
LOC: HO.LAB 11:43
PROVIDERS: PCP Internal Medicine; Visit Provider Student in an Organized Health Care Education/Training Program
DX: M05.9 Rheumatoid arthritis with rheumatoid factor, unspecified (principal); Z79.899 Other long term (current) drug therapy
CPT/HCPCS: 36415; 80053; 85025; 85652; 86140

== ENCOUNTER 2024-09-07 09:30 | Outpatient (AMB) | payer MEDICARE, SELFPAY ==
--- NOTE | 2024-09-07 09:32 | A.OFFVIS_ITS ---
Vital Signs 09/07/24 09:36 Height 5 ft 4 in Weight 194 lb 3.636 oz BMI 33.3 BP 144/80 H Blood Pressure Location Rt brachial Position Sitting Pulse 78 Pulse Source Pulse Oximeter Pulse Oximetry (%) 98 Oxygen Delivery Method Room Air Intake Visit Reasons: RA/lm Intake Note: Patient presents for RA. Allergies sulfasalazine Allergy (Intermediate, Verified 09/07/24 09:35) nausea, vomiting Medication List - Last Reconciled 09/07/24 by Maria Guadalupe Leyva MD acetaminophen (Tylenol) 650 mg PO Q6H PRN ascorbate calcium (vitamin C) 500 mg PO DAILY calcium carbonate-vitamin D3 600 mg-10 mcg (400 unit) (Calcium 600 + D(3)) 1 tab PO BID cholecalciferol (vitamin D3) 25 mcg PO DAILY folic acid 1 mg PO DAILY losartan 100 mg PO DAILY methotrexate sodium 15 mg (6 x 2.5 mg) PO QWEEK HPI Comments Details: 88yoF presents for follow-up of seropositive rheumatoid arthritis (RF++CCP++). And osteoporosis. She states that she is doing fairly well overall. She remains on methotrexate 15 mg weekly Hx of broken left wrist slipping on stairs in 2010. ? [facility] Medical History Breast cancer 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 organ or systems involvement Surgical History H/O left breast biopsy Hx of cholecystectomy Hx of tonsillectomy Family History Father CVD (cardiovascular disease) Social History Household Members: None Housing: House Alcohol intake: current Alcohol intake frequency: holidays/special occasions only Alcohol type: wine Patient Tobacco Use Status: Never used Tobacco e-Cigarette/Vaping Use: Never Used Review of Systems Musc Denies arthralgias and Denies joint swelling Physical Exam Vital Signs: Last Vital Signs Pulse 78 09/07/24 09:36 BP 144/80 H 09/07/24 09:36 Pulse Ox 98 09/07/24 09:36 Oxygen Delivery Method Room Air 09/07/24 09:36 BMI result Body Mass Index 33.3 Const General: cooperative, healthy appearing and comfortable Nutritional Appearance: obese Orientation/consciousness: patient oriented x3 Limitations: no limitations HEENT Head: Yes normocephalic and Yes atraumatic Mouth: moist mucous membranes Resp Effort & Inspection: normal respiratory effort and able to speak in complete sentences Cardio Rate: regular rate Rhythm: regular rhythm Skin General skin exam: no rashes or lesions noted Neuro General: patient oriented x3 Extrem Other: No active synovitis Normal range of motion of hands, wrists, elbows, shoulders, knees without pain Gait is steady Results Reviewed Results Reviewed: CLINICAL INDICATION: Other specified disorders of bone density and structure, unspecified site. COMPARISON: Previous BD dated 10/14/2021 and baseline BD dated 09/09/2009. TECHNIQUE: Using a [employer] DXA System (software version: 13.1) manufactured by [employer], dual-energy x-ray absorptiometry was performed of the lumbar spine and left hip. The images are of good technical quality. Summary results are attached. FINDINGS: LEFT FEMUR, NECK: Current: BMD 0.504 g/cm2, Z-score -1.8, T-score -3.8, osteoporosis. Prior: BMD 0.835 g/cm2. Baseline: BMD 0.913 g/cm2. LEFT FEMUR, TOTAL: Current: BMD 0.472 g/cm2, Z-score -2.4, T-score -4.3, osteoporosis, 44.6% decrease from previous, 47.5% decrease from baseline (<5% change is not significant). Prior: BMD 0.852 g/cm2. Baseline: BMD 0.899 g/cm2. AP SPINE L1-L2 (excluding L3 and L4): The data of L1-L4 has been changed to exclude the L3 and L4 vertebral bodies, because channel sclerosis at these levels may cause overestimation of lumbar spine density. Current: BMD 1.103 g/cm2, Z-score 0.8, T-score -0.5, normal, 2.6% decrease from previous, 2.3% decrease from baseline (<5% change is not significant). Prior: BMD 1.132 g/cm2. Baseline: BMD 1.129 g/cm2. IDENTIFIED RISK FACTORS: Menopause, history of fracture (adult), rheumatoid arthritis. HISTORY OF FRACTURE: Wrist. MEDICATIONS: Calcium, vitamin D. MM/XR DEXA axial skeleton IMPRESSION: 1. DIAGNOSIS: Severe osteoporosis based on the lowest T-score value of -4.3 in the total femur, and the history of a wrist fracture, applying World Health Organization criteria. Assessment & Plan Assessment & Plan (1) Seropositive rheumatoid arthritis: Code(s): M05.9 - Rheumatoid arthritis with rheumatoid factor, unspecified Category: Medical Plan: Seropositive rheumatoid arthritis (RF++ CCP++) on 15 mg methotrexate weekly and folic acid 1 mg daily.? Patient has been in remission for a long period of time. Continue methotrexate 15 mg once weekly and folic acid 1 mg daily Labs before next visit in 3 months (2) 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: Comment: Alendronate: July 2017- July 2022. Code(s): M81.0 - Age-related osteoporosis without current pathological fracture Category: Medical Plan: ?DEXA (09/18):? T score -1.7 in femoral neck Osteopenia with high FRAX score. Repeat DEXA? (10/20) showed Osteopenia T-score value of -1.5 in the femoral neck improved from 2019.? She has completed 5 years of Fosamax with improvement in bone density while taking this.? Her last dose of Fosamax was in 07/2022.? Her repeat bone density showed significantly worsening bone density.? T-score is-4.3 at the femoral neck. 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
[2024-09-07 09:36] VITALS: BP 144/80; PULSE 78; O2SAT 98; BMI 33.3
== END 2024-09-07 09:56 | disposition home or self-care (01) ==
PROVIDERS: PCP Internal Medicine; Visit Provider Student in an Organized Health Care Education/Training Program
DX: M05.79 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 organ or systems involvement (principal); M81.0 Age-related osteoporosis without current pathological fracture; Z79.899 Other long term (current) drug therapy
CPT/HCPCS: 99214; G2211

== ENCOUNTER → 2024-09-07 09:30 | Outpatient (BNVA) | payer MEDICARE, SELFPAY | PROVIDERS: PCP Internal Medicine; Visit Provider Student in an Organized Health Care Education/Training Program | DX: M05.9 Rheumatoid arthritis with rheumatoid factor, unspecified (principal); M81.0 Age-related osteoporosis without current pathological fracture; Z79.899 Other long term (current) drug therapy | CPT/HCPCS: 99212 ==

== ENCOUNTER 2024-10-18 13:52 | Emergency (ER) | payer MEDICARE, SELFPAY ==
--- NOTE | ~2024-10-18 | XR_ITS ---
EXAMINATION: XR LUMBOSACRAL SPINE CLINICAL INFORMATION: low back pain COMPARISON: None available. TECHNIQUE: Three views of the lumbosacral spine. FINDINGS: Moderate multilevel spondylosis of the lumbosacral spine manifested by varying degrees of disc space narrowing and endplate osteophytes and facet arthrosis. There is concomitant grade 1 anterolisthesis at L4-L5 which appears to be secondary to degenerative changes. There is a mild convex left curvature of the lumbar spine likely in part secondary to these degenerative changes. Curvature is estimated at 21 degrees measured between T12 and L3. Surgical clips in the right upper quadrant. 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 Electronically signed by: Nicanor King MD 10/18/2024 03:43 PM [facility]
[2024-10-18 14:06] VITALS: BP 185/80; PULSE 85; RESP 20; TEMP 37.4; O2SAT 96; BMI 31.5
--- NOTE | 2024-10-18 14:07 | ED.BACK ---
HPI - Back Pain/Injury General Chief Complaint: Back Pain/Injury Stated Complaint: Back pain, numbness both legs Time Seen by Provider: 10/18/24 15:20 Source: patient and RN notes reviewed Mode of arrival: ambulatory Limitations: no limitations History of Present Illness ED Provider: Shruti Xiong PA-C HPI Narrative: This is a 88-year-old female, with a history of osteopenia and rheumatoid arthritis, who presents emergency department with complaints of back pain x 1 month. Patient denies any recent trauma or injury. She states that she has a history of back pain due to multiple falls on her back. She denies any recent falls. She states that last night her back pain worsened. She states that she awoke in the middle of the night and she had pain starting in her back and radiated down her legs. She states that she had a difficult time getting out of bed today. She states that this sensation was a cramping like sensation in her bilateral legs. She states that she took Tylenol and this has since resolved. She describes her pain as a 2/10 pain. She denies any urinary or bowel retention or incontinence. No saddle anesthesia. Denies any fevers, chills, chest pain, shortness of breath, abdominal pain, nausea, vomiting or diarrhea. No dysuria, hematuria, urinary frequency or urgency. No other complaints or concerns at this time. MD elicited complaint: back pain Pertinent past history: prior back pain Timing: intermittent Severity: moderate Quality: aching Location: lumbar spine Radiation: none Exacerbating factors: none Relieving factors: none Associated symptoms: denies other symptoms Treatments prior to arrival: acetaminophen Work related injury: No Related Data Home Medications ?Medication ?Instructions ?Recorded ?Confirmed acetaminophen 325 mg tablet 650 mg PO Q6H PRN 08/13/20 06/26/24 (Tylenol) ascorbate calcium (vitamin C) 500 500 mg PO DAILY 08/13/20 06/26/24 mg tablet calcium 600 mg (as 1 tab PO BID 08/13/20 06/26/24 carbonate)-vitamin D3 10 mcg (400 unit) tablet (Calcium 600 + D(3)) losartan 100 mg tablet 100 mg PO DAILY 08/12/23 06/26/24 Previous Rx's ?Medication ?Instructions ?Recorded cholecalciferol (vitamin D3) 25 25 mcg PO DAILY #90 caps 06/26/24 mcg (1,000 unit) capsule folic acid 1 mg tablet 1 mg PO DAILY #90 tabs 07/04/24 methotrexate sodium 2.5 mg tablet 15 mg (6 x 2.5 mg) PO QWEEK #77 09/03/24 tabs lidocaine 5 % topical patch 1 patch topical DAILY #30 ea 10/18/24 Allergies Allergy/AdvReac Type Severity Reaction Status Date / Time sulfasalazine Allergy Intermediate nausea, Verified 10/18/24 14:11 vomiting Review of Systems Review of Systems: Yes all other systems are reviewed and are negative Constitutional: Constitutional: Reports as per HPI [facility] Past Medical History Medical History Breast cancer 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 organ or systems involvement Surgical History H/O left breast biopsy Hx of cholecystectomy Hx of tonsillectomy Family History Family History Father CVD (cardiovascular disease) Social History Social History Household Members: None Housing: House Alcohol intake: current Alcohol intake frequency: holidays/special occasions only Alcohol type: wine Patient Tobacco Use Status: Never used Tobacco e-Cigarette/Vaping Use: Never Used Advance Directives: No Advance Directives Information Provided: No Do you have a plan to hurt others: No Plan Physical Exam Vital Signs: Vital Signs: Last Vital Signs Temp 97.9 F 10/18/24 17:51 Pulse 75 10/18/24 17:51 Resp 18 10/18/24 17:51 BP 136/65 10/18/24 17:51 Pulse Ox 97 10/18/24 17:51 O2 Del Method Room Air 10/18/24 17:51 BMI result Body Mass Index 31.5 Const: General: cooperative, comfortable and no acute distress Orientation/consciousness: patient oriented x3 Limitations: no limitations HEENT: Head: Yes normal to inspection, Yes normocephalic and Yes atraumatic Ears: hearing grossly normal bilaterally General nose exam: Normal external nose present Face and sinus: Yes normal facial exam Mouth: Normal oral and palatal mucosa present, oropharynx normal and moist mucous membranes Throat: Yes posterior oropharynx normal Eyes: General: appearance normal, both eyes and all related structures Eyelids: Yes eyelids normal Conjunctivae: conjunctivae normal Sclerae: sclerae normal Pupils: Equal, round and reactive pupils present EOM: EOMs intact bilaterally Neck: Neck: Yes normal visual inspection, Yes full ROM and Yes no lymphadenopathy Lymphatic: no lymphadenopathy noted Chest: Chest palpation & inspection: normal inspection of the chest Resp: Effort & Inspection: normal respiratory effort and able to speak in complete sentences Auscultation: clear to auscultation bilaterally, no crackles, no rales, no rhonchi and no wheezes Cardio: Rate: regular rate Rhythm: regular rhythm Heart sounds: S1 normal heart sound present and S2 normal heart sound present GI: Other: Umbilical hernia noted, this is not incarcerated, no overlying skin changes or warmth. Is reproducible. Nontender. Inspection: Yes normal to inspection Back/Spine/Pelvis: Other: Tenderness palpation along the midline lumbar spine, no bony step-off or deformity. No overlying skin changes or warmth. No CVA tenderness. Negative straight leg raise bilaterally. Distal sensation circulation intact. No calf tenderness. Skin: General skin exam: no rashes or lesions noted Trauma: no lacerations or abrasions Wounds: no wounds Neuro: General: patient oriented x3 and moves all extremities Cranial nerves: Yes Equal, round and reactive pupils present Extrem: General: Yes normal to inspection Right upper extremity: normal to inspection Left upper extremity: normal to inspection Right lower extremity: normal to inspection Left lower extremity: normal to inspection Course Course Course Narrative: This is a Rapid Medical Examination (RME) performed by Shima Ivan PA-C in triage. Full HPI, ROS, assessment and treatment plan per primary provider in the Main ED. 88 yo female with history of RA on MTX, osteoporosis who presents to the ER for evaluation of lower back pain and bilateral leg cramping and pain that worsened last night, pain has been present for about a month. usually gets back pain in the winter but it is worse today. couldnt get out of bed this morning due to the pain. took tylenol 1 hour ago and had some improvement. Plan: XR lumbar spine Reevaluation(s) Reevaluation #1: Labs returned, she has no leukocytosis, stable H&H, chemistry with no electrolyte derangement, magnesium within normal limits. Troponin within normal limits. EKG normal sinus rhythm with no ST elevation. She has no chest pain. Patient's symptoms completely resolved after receiving lidocaine patch. She is ambulatory in the department, well-appearing. At this time, patient stable for discharge. Given strict return precautions. Daughter and patient understand and agree with plan. Medications Administered Discontinued Medications Generic Name Dose Route Start Last Admin Trade Name Shawn PRN Reason Stop Dose Admin Acetaminophen 650 mg 10/18/24 16:13 10/18/24 16:36 Acetaminophen 325 Mg Tablet PO 10/18/24 16:14 650 mg ONCE ONE Administration Lidocaine 1 patch 10/18/24 16:12 10/18/24 16:36 Lidocaine 4 % Patch Adh..Patch TRANSDERMA 10/18/24 16:13 1 patch ONCE ONE Administration Protocol Medical Decision Making Medical Decision Making [facility] Narrative: This is a 88-year-old female, with a history of osteoporosis, and rheumatoid arthritis who presents emergency department with atraumatic back pain for the last month. Patient reports that she has had waxing and waning pain over the last month however worsened last night while she was lying in bed. She states that Tylenol has been alleviating or pain. She denies any chest pain, shortness of breath, abdominal pain, nausea, vomiting or diarrhea. She states that she has a history of low back pain after falls and injuring her coccyx, reporting that she has a history of fractures there. She denies any recent falls. Tylenol has helped her pain. X-ray revealing moderate multilevel spondylosis of the lumbar sacral spine. Given cramping like sensation in her bilateral legs last night, will obtain basic labs to rule out any electrolyte derangement. Differential Diagnosis Differential Diagnoses: The differential diagnosis associated with the presentation includes Electrolyte derangement, sciatica, degenerative disc disease, spondylosis, sciatica Admission/Observation Consideration of admission/observation: Escalation of care including admission/observation considered Lab Data [facility] Lab Attestation statement: I reviewed the patient's lab results. See course comment and MDM 10/18/24 16:21 10/18/24 16:21 Labs: Lab Results 10/18/24 Range/Units 16:21 WBC 7.9 (4.8-10.8) X10*3/uL RBC 4.10 L (4.20-5.50) X10*6/uL Hgb 13.0 (12.0-16.0) g/dl Hct 39.0 (37.0-47.0) % MCV 95.1 (80.0-98.0) fL MCH 31.7 (27.0-33.0) pg MCHC 33.3 (31.0-35.0) g/dl RDW 14.4 (11.0-16.0) % Plt Count 222 (160-400) X10*3/uL MPV 9.9 (9.4-12.3) fL Immature Gran % (Auto) 0.5 H (0.0-0.4) % Neut % (Auto) 68.9 (45-73) % Lymph % (Auto) 22.4 (20-40) % Nye % (Auto) 6.8 (2-11) % Eos % (Auto) 0.8 (0-4) % Baso % (Auto) 0.6 (0-2) % Lymph # (Auto) 1.8 (1.2-4.9) X10*3/uL Nye # (Auto) 0.5 (0.1-1.2) X10*3/uL Eos # (Auto) 0.1 (0.0-0.4) X10*3/uL Baso # (Auto) 0.1 (0.0-0.2) X10*3/uL Abs Immat Gran (auto) 0.04 H (0.00-0.03) X10*3/uL Absolute Neuts (auto) 5.4 (2.0-8.3) x10*3/uL Absolute Nucleated RBC 0.000 (0.0-0.012) X10*3/uL Nucleated RBC % (auto) 0.0 (0.0-0.2) /100WBC Sodium 141 (135-145) mmol/L Potassium 4.8 (3.3-5.1) mmol/L Chloride 105 (96-108) mmol/L Carbon Dioxide 29 (22-29) mmol/L Anion Gap 12 (12-20) BUN 18 H (9-16) mg/dL Creatinine 0.66 (0.5-1.4) mg/dL Estim Creat Clear Calc 66.1 Estimated GFR > 60 Random Glucose 114 (60-115) mg/dL Calcium 9.8 (8.4-10.2) mg/dL Magnesium 2.0 (1.6-2.6) mg/dL Total Bilirubin 0.5 (0.0-1.0) mg/dL Direct Bilirubin 0.2 (0.0-0.5) mg/dL AST 34 H (5-31) U/L ALT 21 (0-31) U/L Alkaline Phosphatase 89 (39-117) U/L Total Creatine Kinase 115 (26-140) U/L Troponin I High Sens 4.0 (<3.5-17.0) ng/L Total Protein 7.4 (6.5-8.0) g/dL Albumin 4.1 (3.5-5.0) g/dL Radiology Impression Discussion of test interpretation with radiology: I have reviewed the radiologist's reading. Radiologist Impression: EXAMINATION: XR LUMBOSACRAL SPINE CLINICAL INFORMATION: low back pain COMPARISON: None available. TECHNIQUE: Three views of the lumbosacral spine. FINDINGS: Moderate multilevel spondylosis of the lumbosacral spine manifested by varying degrees of disc space narrowing and endplate osteophytes and facet arthrosis. There is concomitant grade 1 anterolisthesis at L4-L5 which appears to be secondary to degenerative changes. There is a mild convex left curvature of the lumbar spine likely in part secondary to these degenerative changes. Curvature is estimated at 21 degrees measured between T12 and L3. Surgical clips in the right upper quadrant. 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 Electronically signed by: Nicanor King MD 10/18/2024 03:43 PM [facility] Dictated By: Nicanor King MD Discharge Plan Discharge Clinical Impression: Back pain Patient Disposition: Home, Self-Care Instructions: Back Pain (ED) Additional Instructions: Radha was seen in the emergency department due to back pain. Her x-ray does show evidence of spondylosis, which is a degenerative disorder in her back. Her blood work was reassuring. Please follow-up with the primary care physician, call to make an appointment. Gentle stretching, massage, heat can also help with pain. Lidocaine patches can also help with pain, please do not apply ice or heat directly to the patches as this can cause thermal bermudez. If any new or worsening symptoms occur including but not limited to worsening back pain, chest pain, shortness for breath, urinary or bowel retention or incontinence, numbness or tingling into the groin, please seek emergent care. Prescriptions: New lidocaine 5 % adhesive patch,medicated 1 patch topical DAILY Qty: 30 0RF Rx Instructions: leave on most painful area for up to 12 hrs No Action folic acid 1 mg tablet 1 mg PO DAILY Qty: 90 1RF methotrexate sodium 2.5 mg tablet 15 mg PO QWEEK Qty: 77 0RF ascorbate calcium (vitamin C) 500 mg tablet 500 mg PO DAILY acetaminophen [Tylenol] 325 mg tablet 650 mg PO Q6H PRN calcium carbonate-vitamin D3 [Calcium 600 + D(3)] 600 mg(1,500mg) -400 unit tablet 1 tab PO BID cholecalciferol (vitamin D3) 25 mcg (1,000 unit) capsule 25 mcg PO DAILY Qty: 90 1RF losartan 100 mg tablet 100 mg PO DAILY Interventions: ED Discharge Assessment Last Done: 10/18/24 17:51 Discharge Date/Time: 10/18/24 17:52 Print Language: Swedish
--- NOTE | 2024-10-18 16:12 | ECG_ITS ---
Test Reason : flank pain Blood Pressure : / mmHG Vent. Rate : 067 BPM Atrial Rate : 067 BPM P-R Int : 154 ms QRS Dur : 084 ms QT Int : 370 ms P-R-T Axes : -01 -03 014 degrees QTc Int : 390 ms Normal sinus rhythm with sinus arrhythmia Inferior infarct , age undetermined Abnormal ECG No previous ECGs available Referred By: Shruti Xiong Electronically Signed By:LILLY BANEGAS
[2024-10-18 16:25] VITALS: BP 136/65; PULSE 75; RESP 18; TEMP 36.6; O2SAT 97
[2024-10-18 16:26] LABS: MANUAL DIFF FLAG NO
[2024-10-18] MEDS: Acetaminophen 325 MG TABLET 650 MG PO (16:36)
[2024-10-18] MEDS: Lidocaine 4 % Patch ADH..PATCH 1 PATCH TRANSDERMA (16:36)
[2024-10-18 16:40] LABS: Basophils Absolute Auto 0.1 X10*3/uL (0.0-0.2); Basophils Percent Auto 0.6 % (0-2); Eosinophils Absolute Auto 0.1 X10*3/uL (0.0-0.4); Eosinophils Percent Auto 0.8 % (0-4); Imm Gran Abs Auto 0.04 X10*3/uL (0.00-0.03); Imm Gran Pct Auto 0.5 % (0.0-0.4); Lymphocytes Absolute Auto 1.8 X10*3/uL (1.2-4.9); Lymphocytes Percent Auto 22.4 % (20-40); Mean Corpuscular HGB Conc 33.3 g/dl (31.0-35.0); Mean Corpuscular Hemoglobin 31.7 pg (27.0-33.0); Mean Corpuscular Volume 95.1 fL (80.0-98.0); Mean Platelet Volume 9.9 fL (9.4-12.3); Monocytes Absolute Auto 0.5 X10*3/uL (0.1-1.2); Monocytes Percent Auto 6.8 % (2-11); Neutrophils Absolute Auto 5.4 x10*3/uL (2.0-8.3); Neutrophils Percent Auto 68.9 % (45-73); Platelet Count 222 X10*3/uL (160-400); Red Cell Distribution Width 14.4 % (11.0-16.0); White Blood Count 7.9 X10*3/uL (4.8-10.8)
[2024-10-18 16:45] LABS: Alanine Aminotransferase 21 U/L (0-31); Albumin Level 4.1 g/dL (3.5-5.0); Alkaline Phosphatase 89 U/L (39-117); Anion Gap 12 (12-20); Aspartate Amino Transferase 34 U/L (5-31); Bilirubin Direct 0.2 mg/dL (0.0-0.5); Bilirubin Total 0.5 mg/dL (0.0-1.0); Blood Urea Nitrogen 18 mg/dL (9-16); Calcium 9.8 mg/dL (8.4-10.2); Carbon Dioxide 29 mmol/L (22-29); Chloride 105 mmol/L (96-108); Creatinine Clr Calc Pharmacy 66.1; Estimated Glomerular Filt Rate > 60; Glucose Random 114 mg/dL (60-115); Potassium 4.8 mmol/L (3.3-5.1); Sodium 141 mmol/L (135-145); Total Protein 7.4 g/dL (6.5-8.0)
[2024-10-18 17:51] VITALS: BP 136/65; PULSE 75; RESP 18; TEMP 36.6; O2SAT 97
== END 2024-10-18 17:52 | disposition home or self-care (01) ==
PROVIDERS: Physician Assistant Medical; Emergency Provider Emergency Medicine; PCP Internal Medicine
DX: M54.50 Low back pain, unspecified (principal); M05.9 Rheumatoid arthritis with rheumatoid factor, unspecified; Z79.899 Other long term (current) drug therapy
CPT/HCPCS: 36415; 72100; 80048; 80076; 82550; 83735; 84484; 85025; 93005; 99283; 99284

== ENCOUNTER → 2024-10-18 16:12 | Outpatient (BNV) | payer MEDICARE, SELFPAY | PROVIDERS: Emergency Provider Emergency Medicine; PCP Internal Medicine; Visit Provider Internal Medicine | DX: R94.31 Abnormal electrocardiogram [ECG] [EKG] (principal) | CPT/HCPCS: 93010 ==

== ENCOUNTER 2024-12-18 11:35 | Outpatient (REF) | payer MEDICARE, SELFPAY ==
[2024-12-18 11:55] LABS: MANUAL DIFF FLAG NO
[2024-12-18 13:19] LABS: Basophils Percent Auto 0.5 % (0-2); Eosinophils Absolute Auto 0.1 X10*3/uL (0.0-0.4); Eosinophils Percent Auto 1.3 % (0-4); Hematocrit 38.3 % (37.0-47.0); Hemoglobin 12.4 g/dl (12.0-16.0); Imm Gran Abs Auto 0.02 X10*3/uL (0.00-0.03); Imm Gran Pct Auto 0.3 % (0.0-0.4); Lymphocytes Absolute Auto 1.7 X10*3/uL (1.2-4.9); Mean Corpuscular HGB Conc 32.4 g/dl (31.0-35.0); Mean Corpuscular Hemoglobin 31.6 pg (27.0-33.0); Mean Corpuscular Volume 97.5 fL (80.0-98.0); Mean Platelet Volume 10.4 fL (9.4-12.3); Monocytes Absolute Auto 0.5 X10*3/uL (0.1-1.2); Monocytes Percent Auto 7.3 % (2-11); Neutrophils Absolute Auto 3.9 x10*3/uL (2.0-8.3); Neutrophils Percent Auto 63.6 % (45-73); Platelet Count 199 X10*3/uL (160-400); Red Blood Count 3.93 X10*6/uL (4.20-5.50); White Blood Count 6.2 X10*3/uL (4.8-10.8)
[2024-12-18 13:51] LABS: Alanine Aminotransferase 22 U/L (0-31); Albumin Level 3.9 g/dL (3.5-5.0); Alkaline Phosphatase 82 U/L (39-117); Anion Gap 10 (12-20); Aspartate Amino Transferase 30 U/L (5-31); Bilirubin Total 0.5 mg/dL (0.0-1.0); Blood Urea Nitrogen 24 mg/dL (9-16); C Reactive Protein 1.03 mg/dL (< or = 0.50); Calcium 10.3 mg/dL (8.4-10.2); Carbon Dioxide 29 mmol/L (22-29); Chloride 107 mmol/L (96-108); Estimated Glomerular Filt Rate > 60; Glucose Random 96 mg/dL (60-115); Potassium 4.6 mmol/L (3.3-5.1); Sodium 141 mmol/L (135-145); Total Protein 7.4 g/dL (6.5-8.0)
[2024-12-18 13:58] LABS: Erythrocyte Sedimentation Rate 29 MM/HR (0-20)
[2024-12-22 14:48] LABS: Vitamin D 25-OH, D2 <4 ng/mL; Vitamin D 25-OH, D3 41 ng/mL; Vitamin D 25-OH, Total 41 ng/mL (30-100)
== END 2024-12-18 11:36 | disposition home or self-care (01) ==
LOC: HO.LAB 11:35
PROVIDERS: Absent Provider Student in an Organized Health Care Education/Training Program; PCP Internal Medicine; Visit Provider Student in an Organized Health Care Education/Training Program
DX: M05.9 Rheumatoid arthritis with rheumatoid factor, unspecified (principal); E55.9 Vitamin D deficiency, unspecified; Z79.899 Other long term (current) drug therapy
CPT/HCPCS: 36415; 80053; 82306; 85025; 85652; 86140

== ENCOUNTER 2025-01-02 13:44 | Outpatient (AMB) | payer MEDICARE, SELFPAY ==
--- NOTE | 2025-01-02 14:01 | AM.OFFVISNUR ---
Intake Visit Reasons: prolia injection Allergies sulfasalazine Allergy (Intermediate, Verified 10/18/24 14:11) nausea, vomiting Office Meds Prolia 60 mg/mL subcutaneous syringe Performing Provider: Radha Zhang MD Performing Location: [facility] [place] Rheumatology Administered by: Jessi Hernandez RN on 01/02/25 14:01 Dose Route Admin Location Dispensed Lot Number Expiration Date [facility] Licensed Veterinary Technician 60 mg subcut left upper arm 1 mL [id number] 05/30/27 71031-916-30 [employer] Comments: Consent form signed by patient. Pt tolerated injection well and denies any adverse reactions to previous injections. Assessment & Plan Assessment & Plan Orders: Orders AMB Denosumab Injection Practice Supplied Today M81.0 - Age-related osteoporosis without current pathological fracture Medications: New Prolia (denosumab) 60 mg subcut ONCE 1 mL 0RF NS M81.0 - Age-related osteoporosis without current pathological fracture Coding
== END 2025-01-02 14:00 | disposition home or self-care (01) ==
LOC: HO.RHE 13:44
PROVIDERS: PCP Internal Medicine
DX: M81.0 Age-related osteoporosis without current pathological fracture (principal)

== ENCOUNTER → 2025-01-02 13:44 | Outpatient (BNVA) | payer MEDICARE, SELFPAY | PROVIDERS: PCP Internal Medicine | DX: M81.0 Age-related osteoporosis without current pathological fracture (principal) | CPT/HCPCS: 96372; J0897 ==

== ENCOUNTER 2025-01-24 13:57 | Outpatient (REF) | payer MEDICARE, SELFPAY | END 2025-01-24 13:58 | disposition home or self-care (01) | LOC: HO.MAMMO 13:57 | PROVIDERS: PCP Internal Medicine; Visit Provider Internal Medicine | DX: Z12.31 Encounter for screening mammogram for malignant neoplasm of breast (principal) | CPT/HCPCS: 77063; 77067 ==

== ENCOUNTER → 2025-01-24 14:00 | Outpatient (BNV) | payer MEDICARE, SELFPAY | PROVIDERS: PCP Internal Medicine; Visit Provider Internal Medicine | DX: Z12.31 Encounter for screening mammogram for malignant neoplasm of breast (principal) | CPT/HCPCS: 77063; 77067 ==

== ENCOUNTER 2025-04-04 12:20 | Outpatient (REF) | payer MEDICARE, SELFPAY ==
[2025-04-04 12:41] LABS: MANUAL DIFF FLAG NO
[2025-04-04 13:14] LABS: Basophils Percent Auto 0.6 % (0-2); Eosinophils Absolute Auto 0.1 X10*3/uL (0.0-0.4); Eosinophils Percent Auto 0.9 % (0-4); Hematocrit 38.1 % (37.0-47.0); Hemoglobin 12.8 g/dl (12.0-16.0); Imm Gran Abs Auto 0.02 X10*3/uL (0.00-0.03); Imm Gran Pct Auto 0.3 % (0.0-0.4); Lymphocytes Absolute Auto 1.7 X10*3/uL (1.2-4.9); Lymphocytes Percent Auto 25.9 % (20-40); Mean Corpuscular HGB Conc 33.6 g/dl (31.0-35.0); Mean Corpuscular Volume 95.3 fL (80.0-98.0); Mean Platelet Volume 9.8 fL (9.4-12.3); Monocytes Absolute Auto 0.5 X10*3/uL (0.1-1.2); Monocytes Percent Auto 7.6 % (2-11); Neutrophils Absolute Auto 4.2 x10*3/uL (2.0-8.3); Neutrophils Percent Auto 64.7 % (45-73); Platelet Count 194 X10*3/uL (160-400); Red Cell Distribution Width 13.7 % (11.0-16.0); White Blood Count 6.4 X10*3/uL (4.8-10.8)
[2025-04-04 13:50] LABS: Alanine Aminotransferase 25 U/L (0-31); Alkaline Phosphatase 73 U/L (39-117); Anion Gap 11 (12-20); Aspartate Amino Transferase 44 U/L (5-31); Bilirubin Total 0.6 mg/dL (0.0-1.0); Blood Urea Nitrogen 20 mg/dL (9-16); Calcium 10.2 mg/dL (8.4-10.2); Carbon Dioxide 30 mmol/L (22-29); Chloride 105 mmol/L (96-108); Estimated Glomerular Filt Rate > 60; Glucose Random 102 mg/dL (60-115); Potassium 4.8 mmol/L (3.3-5.1); Sodium 141 mmol/L (135-145); Total Protein 6.9 g/dL (6.5-8.0)
[2025-04-04 13:59] LABS: Erythrocyte Sedimentation Rate 29 MM/HR (0-20)
== END 2025-04-04 12:21 | disposition home or self-care (01) ==
LOC: HO.LAB 12:20
PROVIDERS: PCP Internal Medicine; Visit Provider Student in an Organized Health Care Education/Training Program
DX: M05.9 Rheumatoid arthritis with rheumatoid factor, unspecified (principal)
CPT/HCPCS: 36415; 80053; 85025; 85652

== ENCOUNTER 2025-04-23 09:43 | Outpatient (AMB) | payer MEDICARE, SELFPAY ==
[2025-04-23 10:15] VITALS: BP 136/74; PULSE 74; TEMP 37.6; O2SAT 97; BMI 32.8
--- NOTE | 2025-04-23 10:15 | MHC.OFFWIV ---
Intake Vital Signs 04/23/25 10:15 Height 5 ft 4 in Weight 191 lb 2 oz BMI 32.8 BP 136/74 Blood Pressure Location Rt brachial Position Sitting Pulse 74 Pulse Source Pulse Oximeter Temp 99.7 F Temp Source Oral Pulse Oximetry (%) 97 Oxygen Delivery Method Room Air Intake Visit Reasons: EP vomiting,chills Patient Tobacco Use Status: Never used Tobacco Allergies sulfasalazine Allergy (Intermediate, Verified 04/23/25 10:20) nausea, vomiting Do you need a note to return to daycare/school/sports/work: No HPI HPI Comments History of Present Illness Details Patient is an 89-year-old female with a past medical history of rheumatoid arthritis on methotrexate, osteoporosis here with her son Aurelio complaining of 2 days of nausea and vomiting. She states that 2 days ago she had a family picnic and was sitting under and bowel are but in a very humid environment for the day. She also ate foods that were outside of her normal diet and she had 1 alcoholic drink. She tells me she vomited later on in the evening. She denies any fevers but does tell me she has a chills and some fatigue. She tells me she usually has a very robust appetite but she is trying to eat and she vomited yesterday again after trying to eat something. She denies any blood or black in her vomitus. She denies any abdominal pain or diarrhea. She is able to sip on some water and took all of her medications yesterday. She has some electrolyte drink at home but has not tried taking any yet. She has not taken her medications yet today because she is too nauseous. [facility] Medical History Breast cancer 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 organ or systems involvement Surgical History H/O left breast biopsy Hx of cholecystectomy Hx of tonsillectomy Family History Father CVD (cardiovascular disease) Social History Household Members: None Housing: House Alcohol intake: current Alcohol intake frequency: holidays/special occasions only Alcohol type: wine Patient Tobacco Use Status: Never used Tobacco e-Cigarette/Vaping Use: Never Used Review of Systems Const All systems reviewed & are unremarkable except as noted in HPI and below Physical Exam Vital Signs: Last Vital Signs Temp 99.7 F 04/23/25 10:15 Pulse 74 04/23/25 10:15 BP 136/74 04/23/25 10:15 Pulse Ox 97 04/23/25 10:15 Oxygen Delivery Method Room Air 04/23/25 10:15 BMI result Body Mass Index 32.8 Const General: cooperative, healthy appearing, comfortable, no acute distress and well developed Orientation/consciousness: patient oriented x3 Limitations: no limitations HEENT Head: Yes normal to inspection Ears: hearing grossly normal bilaterally General nose exam: Normal external nose present Face and sinus: Yes normal facial exam Eyes General: appearance normal, both eyes and all related structures Neck Neck: Yes normal visual inspection and Yes full ROM Resp Effort & Inspection: normal respiratory effort and able to speak in complete sentences Skin General skin exam: no rashes or lesions noted Neuro General: patient oriented x3 Extrem General: Yes normal to inspection Assessment & Plan Assessment & Plan (1) Viral gastroenteritis: Code(s): A08.4 - Viral intestinal infection, unspecified Plan: Vital signs are stable and patient is well-appearing. Sent some Zofran to her pharmacy to help with her nausea so that she can at least take her pills. Recommended she try to at least take the losartan every day and the methotrexate which she scheduled to take tomorrow. The rest are mostly vitamins and not as essential. Recommended she continue to taken small bits of water with a electrolyte drink and the BRAT diet/bland foods in several small meals. Reviewed signs and symptoms of when to go to the emergency department with her and her son. She does not need to go right now as she is managing illness well. Medications: New ondansetron 4 mg PO Q8H PRN 10 tabs 0RF nausea and vomiting Coding Level of Care Code Est Pt Level 3 (64887) Diagnoses Viral gastroenteritis A08.4
== END 2025-04-23 10:54 | disposition home or self-care (01) ==
PROVIDERS: PCP Internal Medicine; Visit Provider Physician Assistant
DX: A08.4 Viral intestinal infection, unspecified (principal)

== ENCOUNTER → 2025-04-23 09:43 | Outpatient (BNVA) | payer MEDICARE, SELFPAY | PROVIDERS: PCP Internal Medicine; Visit Provider Physician Assistant | DX: A08.4 Viral intestinal infection, unspecified (principal) | CPT/HCPCS: 99212 ==

== ENCOUNTER 2025-04-28 01:36 | Emergency (ER) | payer MEDICARE, SELFPAY ==
--- NOTE | ~2025-04-28 | XR_ITS ---
CLINICAL HISTORY: fall with increase pain 3 views lumbar spine Comparison: None provided Findings: There is scoliotic curvature. No acute fractures or dislocation. There is multiple level degenerative disc and facet change. IMPRESSION: No acute findings. This document has been electronically signed by: Aurelio Pavon MD on 04/28/2025 08:39:50
--- NOTE | ~2025-04-28 | CT_ITS ---
CLINICAL HISTORY: Fall CT head without contrast Indication: Fall, trauma Comparison: None Findings: Brain demonstrates diffuse cerebral atrophy with a bitemporal predominant pattern. There are remote bilateral cerebellar infarcts. Hypodensities in the subcortical and periventricular white matter, nonspecific, likely represent microvascular change. No focal loss of laureano-white differentiation. Insular ribbons are not effaced. Midbrain, mahendra, medulla, and cerebellum are normal. There is no acute intracranial hemorrhage. No subarachnoid, subdural, or parenchymal hemorrhage. There is no midline shift. Suprasellar and basal cisterns are clear. Pituitary is normal. No acute calvarial fracture. Orbits are normal. Globes are aphakic. Paranasal sinuses are clear. No large soft tissue hematoma. Orbits are normal. No acute calvarial fracture or diastasis. Mastoid air cells are normally aerated. Paranasal sinuses are clear. Central skull base is normal. No acute fracture. IMPRESSION: 1. No acute intracranial hemorrhage. 2. No loss of laureano-white differentiation in a large vascular distribution. 3. Moderate microvascular changes. Chronic cerebellar infarcts This document has been electronically signed by: Dm Cruz III, MD PHD on 04/28/2025 05:35:54
--- NOTE | ~2025-04-28 | CT_ITS ---
CLINICAL HISTORY: Fall CT cervical spine without contrast Comparison: None TECHNIQUE: Helical CT of the cervical spine with sagittal and coronal reconstructions. FINDINGS: Clivus and dens are normally aligned. Cervical alignment is normal. Occipital condyles are intact. Anterior atlanto odontoid articulation is normally aligned. Moderate degenerative changes are present at the anterior atlanto odontoid articulation. Noncalcified retro dental soft tissue is present. No narrowing of the foramen magnum. Cervical vertebral body heights are maintained. Articular facets are normally aligned. Spinous processes and lamina are intact. No CT evidence of epidural hematoma. There is moderate disc space narrowing at C3/4 and C4/5. Facet arthropathy and posterior disc osteophyte complex contributing to mild spinal canal narrowing at C3/4 and moderate foraminal narrowing at C3/4 and C4/5. Lung apices demonstrate pleural-parenchymal scarring. There is a left thyroid lesion measuring approximately 20 mm. IMPRESSION: No acute fracture, subluxation, or static evidence of instability. Degenerative changes greatest at the atlanto odontoid articulation, C3/4, C4/5. Left thyroid lesion may be evaluated as an outpatient with ultrasound. This document has been electronically signed by: Dm Cruz III, MD PHD on 04/28/2025 05:34:15
[2025-04-28 01:44] VITALS: BP 152/63; PULSE 70; RESP 18; TEMP 36.8; O2SAT 98; BMI 31.7
[2025-04-28 02:52] VITALS: BP 173/74; PULSE 71; RESP 18; TEMP 36.8; O2SAT 95
--- NOTE | 2025-04-28 03:16 | ED.FALL ---
HPI - Fall General Chief Complaint: Fall Stated Complaint: fall w/ head strike 2 days ago Time Seen by Provider: 04/28/25 03:15 Source: patient and family Mode of arrival: ambulatory Limitations: no limitations History of Present Illness ED Provider: HPI Narrative: Patient apparently was getting off of the bed when she slipped on a rug and landed on her back hitting her head to the ground no loss of consciousness no seizures patient is acting normally complaining of pain in the lower back and the head Related Data Home Medications ?Medication ?Instructions ?Recorded ?Confirmed acetaminophen 325 mg tablet 650 mg PO Q6H PRN 08/13/20 06/26/24 (Tylenol) ascorbate calcium (vitamin C) 500 500 mg PO DAILY 08/13/20 06/26/24 mg tablet calcium 600 mg (as 1 tab PO BID 08/13/20 06/26/24 carbonate)-vitamin D3 10 mcg (400 unit) tablet (Calcium 600 + D(3)) losartan 100 mg tablet 100 mg PO DAILY 08/12/23 06/26/24 Previous Rx's ?Medication ?Instructions ?Recorded cholecalciferol (vitamin D3) 25 25 mcg PO DAILY #90 caps 12/20/24 mcg (1,000 unit) capsule folic acid 1 mg tablet 1 mg PO DAILY #90 tabs 04/05/25 methotrexate sodium 2.5 mg tablet 15 mg (6 x 2.5 mg) PO QWEEK 30 04/05/25 days #30 tabs ondansetron 4 mg disintegrating 4 mg PO Q8H PRN nausea and 04/23/25 tablet vomiting #10 tabs Allergies Allergy/AdvReac Type Severity Reaction Status Date / Time sulfasalazine Allergy Intermediate nausea, Verified 04/28/25 01:47 vomiting Review of Systems Review of Systems: Yes all other systems are reviewed and are negative PMFSH Past Medical History Medical History Breast cancer 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 organ or systems involvement Surgical History H/O left breast biopsy Hx of cholecystectomy Hx of tonsillectomy Family History Family History Father CVD (cardiovascular disease) Social History Social History Household Members: None Housing: House Alcohol intake: current Alcohol intake frequency: holidays/special occasions only Alcohol type: wine Patient Tobacco Use Status: Never used Tobacco Smoked in Last 30 Days: No e-Cigarette/Vaping Use: Never Used Use of substances other than those prescribed or required for medical reasons: No Advance Directives: No Advance Directives Information Provided: Yes Physical Exam Vital Signs: Vital Signs: Last Vital Signs Temp 98.5 F 04/28/25 05:13 Pulse 69 04/28/25 05:13 Resp 21 H 04/28/25 05:13 BP 181/71 H 04/28/25 05:13 Pulse Ox 95 04/28/25 05:13 O2 Del Method Room Air 04/28/25 05:13 BMI result Body Mass Index 31.7 Appearance: Alert. Oriented X3. No acute distress. Eyes: PERRLA, No Nystagmus ENT: Pharynx normal. Oral Mucosa moist atraumatic normocephalic Neck: Normal inspection. Neck supple. CVS: Normal heart rate and rhythm. Pulses normal. Respiratory: No respiratory distress. Equal air entry bilateral, no wheezing/rales/rhonchi Abdomen: Soft and nontender. Bowel sounds are present, no mass palpable, no CVA tenderness Skin: Skin warm and dry. Normal skin color. Normal skin turgor. Extremities: No lower extremity edema. No calf tenderness Neuro: Oriented X 3. No motor deficit. No sensory deficit.No cerebellar signs , cranial nerves II-XII intact Medications Administered Discontinued Medications Generic Name Dose Route Start Last Admin Trade Name Freq PRN Reason Stop Dose Admin Sodium Chloride 1,000 mls @ 999 mls/hr 04/28/25 03:32 04/28/25 05:08 Ns IV 04/28/25 04:32 Infused .Q1H1M ONE Infusion Ondansetron HCl 4 mg 04/28/25 03:32 04/28/25 04:07 Ondansetron Hcl 4 Mg/2 Ml Vial IVPUSH 04/28/25 03:33 4 mg ONCE ONE Administration Medical Decision Making Medical Decision Making [facility] Narrative: Patients/p mechanical fall with minor head injury head CT and cervical spine CT is negative also has chronic lumbarspine tenderness which was negative for fracture patient advised to follow with PCP care and cautions the advised Differential Diagnosis Differential Diagnoses: The differential diagnosis associated with the presentation includes Skull fracture so/subarachnoid bleed/subdural bleed/compression fracture Lab Data MDM Lab Attestation statement: I reviewed the patient's lab results. 04/28/25 04:17 04/28/25 04:17 Labs: Lab Results 04/28/25 Range/Units 04:17 WBC 13.2 H (4.8-10.8) X10*3/uL RBC 3.60 L (4.20-5.50) X10*6/uL Hgb 11.5 L (12.0-16.0) g/dl Hct 32.5 L (37.0-47.0) % MCV 90.3 (80.0-98.0) fL MCH 31.9 (27.0-33.0) pg MCHC 35.4 H (31.0-35.0) g/dl RDW 14.1 (11.0-16.0) % Plt Count 145 L D (160-400) X10*3/uL MPV 9.8 (9.4-12.3) fL Immature Gran % (Auto) 1.6 H (0.0-0.4) % Neut % (Auto) 86.4 H (45-73) % Lymph % (Auto) 7.2 L (20-40) % [place] % (Auto) 4.4 (2-11) % Eos % (Auto) 0.2 (0-4) % Baso % (Auto) 0.2 (0-2) % Lymph # (Auto) 1.0 L (1.2-4.9) X10*3/uL [place] # (Auto) 0.6 (0.1-1.2) X10*3/uL Eos # (Auto) 0.0 (0.0-0.4) X10*3/uL Baso # (Auto) 0.0 (0.0-0.2) X10*3/uL Abs Immat Gran (auto) 0.21 H (0.00-0.03) X10*3/uL Absolute Neuts (auto) 11.4 H (2.0-8.3) x10*3/uL Absolute Nucleated RBC 0.000 (0.0-0.012) X10*3/uL Nucleated RBC % (auto) 0.0 (0.0-0.2) /100WBC Sodium 135 (135-145) mmol/L Potassium 4.2 (3.3-5.1) mmol/L Chloride 100 (96-108) mmol/L Carbon Dioxide 25 (22-29) mmol/L Anion Gap 14 (12-20) BUN 18 H (9-16) mg/dL Creatinine 0.66 (0.5-1.4) mg/dL Estim Creat Clear Calc 65.1 Estimated GFR > 60 Random Glucose 123 H (60-115) mg/dL Calcium 9.6 (8.4-10.2) mg/dL Total Bilirubin 1.0 (0.0-1.0) mg/dL AST 25 (5-31) U/L ALT 27 (0-31) U/L Alkaline Phosphatase 152 H (39-117) U/L Total Protein 6.2 L (6.5-8.0) g/dL Albumin 3.2 L (3.5-5.0) g/dL Discharge Plan Discharge Clinical Impression: Fall Patient Disposition: Home, Self-Care Instructions: Fall Prevention for Older Adults (ED) Additional Instructions: Care and cautions as advised Your head CT scan cervical CT scan and x-ray of the lumbar spine are negative for acute finding Follow up with your PCP as needed Prescriptions: No Action cholecalciferol (vitamin D3) 25 mcg (1,000 unit) capsule 25 mcg PO DAILY Qty: 90 1RF methotrexate sodium 2.5 mg tablet 15 mg PO QWEEK 30 Days Qty: 30 2RF folic acid 1 mg tablet 1 mg PO DAILY Qty: 90 1RF ascorbate calcium (vitamin C) 500 mg tablet 500 mg PO DAILY acetaminophen [Tylenol] 325 mg tablet 650 mg PO Q6H PRN calcium carbonate-vitamin D3 [Calcium 600 + D(3)] 600 mg(1,500mg) -400 unit tablet 1 tab PO BID ondansetron 4 mg tablet,disintegrating 4 mg PO Q8H PRN (Reason: nausea and vomiting) Qty: 10 0RF losartan 100 mg tablet 100 mg PO DAILY Print Language: [place]i
[2025-04-28] MEDS: ondansetron HCL 4 MG/2 ML VIAL IVPUSH (04:07)
[2025-04-28] MEDS: 0.9 % Sodium Chloride 1,000 ML 999 ML IV (04:07)
[2025-04-28 04:28] LABS: MANUAL DIFF FLAG NO
[2025-04-28 04:29] LABS: Basophils Percent Auto 0.2 % (0-2); Eosinophils Percent Auto 0.2 % (0-4); Hematocrit 32.5 % (37.0-47.0); Hemoglobin 11.5 g/dl (12.0-16.0); Imm Gran Abs Auto 0.21 X10*3/uL (0.00-0.03); Imm Gran Pct Auto 1.6 % (0.0-0.4); Lymphocytes Percent Auto 7.2 % (20-40); Mean Corpuscular HGB Conc 35.4 g/dl (31.0-35.0); Mean Corpuscular Hemoglobin 31.9 pg (27.0-33.0); Mean Corpuscular Volume 90.3 fL (80.0-98.0); Mean Platelet Volume 9.8 fL (9.4-12.3); Monocytes Absolute Auto 0.6 X10*3/uL (0.1-1.2); Monocytes Percent Auto 4.4 % (2-11); Neutrophils Absolute Auto 11.4 x10*3/uL (2.0-8.3); Neutrophils Percent Auto 86.4 % (45-73); Platelet Count 145 X10*3/uL (160-400); Red Cell Distribution Width 14.1 % (11.0-16.0); White Blood Count 13.2 X10*3/uL (4.8-10.8)
[2025-04-28 04:48] LABS: Alanine Aminotransferase 27 U/L (0-31); Albumin Level 3.2 g/dL (3.5-5.0); Alkaline Phosphatase 152 U/L (39-117); Anion Gap 14 (12-20); Aspartate Amino Transferase 25 U/L (5-31); Blood Urea Nitrogen 18 mg/dL (9-16); Calcium 9.6 mg/dL (8.4-10.2); Carbon Dioxide 25 mmol/L (22-29); Chloride 100 mmol/L (96-108); Creatinine Clr Calc Pharmacy 65.1; Estimated Glomerular Filt Rate > 60; Glucose Random 123 mg/dL (60-115); Potassium 4.2 mmol/L (3.3-5.1); Sodium 135 mmol/L (135-145); Total Protein 6.2 g/dL (6.5-8.0)
[2025-04-28 05:13] VITALS: BP 181/71; PULSE 69; RESP 21; TEMP 36.9; O2SAT 95
[2025-04-28 07:55] VITALS: BP 156/76; PULSE 68; RESP 19; TEMP 36.8; O2SAT 97
--- NOTE | 2025-04-28 07:56 | PC.NURSE ---
Per ANI patel to d/c home without urine sample. MD Reagan aware of high BP.
== END 2025-04-28 07:56 | disposition home or self-care (01) ==
PROVIDERS: Emergency Provider Internal Medicine; PCP Internal Medicine
DX: S09.90XA Unspecified injury of head, initial encounter (principal); M54.50 Low back pain, unspecified; R51.9 Headache, unspecified; X58.XXXA Exposure to other specified factors, initial encounter; W01.0XXA Fall on same level from slipping, tripping and stumbling without subsequent striking against object, initial encounter; Y93.01 Activity, walking, marching and hiking; Y92.9 Unspecified place or not applicable; Y99.8 Other external cause status; Z79.899 Other long term (current) drug therapy
CPT/HCPCS: 36415; 70450; 72100; 72125; 80053; 85025; 96361; 96374; 99284; J2405

== ENCOUNTER → 2025-04-28 03:32 | Outpatient (BNV) | payer MEDICARE, SELFPAY | PROVIDERS: Emergency Provider Internal Medicine; PCP Internal Medicine; Visit Provider Radiology Diagnostic Radiology | DX: M50.321 Other cervical disc degeneration at C4-C5 level (principal); G31.9 Degenerative disease of nervous system, unspecified; M51.360 Other intervertebral disc degeneration, lumbar region with discogenic back pain only | CPT/HCPCS: 72100 ==

== ENCOUNTER 2025-04-30 08:23 | Inpatient (IN) | payer MEDICARE, SELFPAY ==
[2025-04-30] VITALS (8 sets, daily range): BP systolic 122–183; BP diastolic 66–95; PULSE 64–74; RESP 16–18; TEMP 36.4–36.9; O2SAT 92–94; BMI 31.4
--- NOTE | ~2025-04-30 | XR_ITS ---
EXAMINATION: XR CHEST CLINICAL INFORMATION: CP COMPARISON: None available. TECHNIQUE: Frontal view of the chest was obtained. FINDINGS: Pulmonary reticular nodular pattern. Indistinct margins in the perihilar regions. No gross pleural effusion or pneumothorax. Cardiomediastinal silhouette size is prominent. Calcified plaque thoracic aortic arch. Multilevel thoracolumbar spondylosis. Degenerative changes in the acromioclavicular joints. XR/XR chest 1V IMPRESSION: Mild interstitial lung edema versus acute small airway inflammatory processes Electronically signed by: Russell Payne MD 04/30/2025 09:07 AM EDT
--- NOTE | ~2025-04-30 | CT_ITS ---
EXAMINATION: CT ABDOMEN PELVIS WITH IV CONTRAST HISTORY: N/V, constipation COMPARISON: There are no prior studies for available comparison. TECHNIQUE: CT scan of the abdomen and pelvis was performed following administration of 85 mL Omnipaque 350 using standard departmental protocol. Coronal and sagittal reformatted images were generated and reviewed. Oral contrast material was not administered at the request of the referring physician. This CT exam was performed with one or more of the following dose reduction techniques: automated exposure control, adjustment of the mA and/or kV according to patient size, use of iterative reconstruction technique. DLP: 645 mGy-cm FINDINGS: LOWER CHEST: The visualized lung bases are clear. There is no pleural effusion. CARDIOVASCULATURE: The heart is normal in size. There is no pericardial effusion. LIVER: The liver is normal in size and contour. No liver mass is identified. The hepatic and portal veins are patent. GALLBLADDER / BILE DUCTS: The gallbladder is surgically absent. There is no intra or extrahepatic biliary ductal dilatation. SPLEEN: The spleen is normal in size. No focal splenic lesion is identified. PANCREAS: The pancreas is unremarkable in appearance. ADRENAL GLANDS: Within normal limits. KIDNEYS/RETROPERITONEUM: There is a 5.9 cm cyst at the lower pole of the right kidney. There is mild prominence of the right renal collecting system. There is scarring at the upper pole of the left kidney. The left kidney demonstrates a heterogeneous nephrogram and there is mild enhancement of the renal pelvis and proximal ureter. Findings are suggestive of acute pyelonephritis. There is a 6 mm nonobstructing calculus at the lower pole. LYMPH NODES: No abdominal or pelvic lymphadenopathy. VASCULATURE: The abdominal aorta demonstrates atherosclerotic calcification, but is normal in caliber. MESENTERY/PERITONEUM: No free fluid. No masses. There is no free intraperitoneal gas. STOMACH: The stomach is collapsed, limiting evaluation. SMALL BOWEL: The small bowel is normal in caliber. COLON: There is a large amount of stool throughout the colon. There is diverticulosis of the sigmoid colon, without evidence of diverticulitis. APPENDIX: Normal. URINARY BLADDER/PELVIC ORGANS: The urinary bladder is unremarkable. The uterus is unremarkable. BONES / SOFT TISSUES: There is a fat-containing umbilical hernia. There is degenerative disc disease of the spine. CT/CT abdomen pelvis w IV con IMPRESSION: 1. Heterogeneous left nephrogram with mild enhancement of the renal pelvis and proximal ureter. Findings are suspicious for acute pyelonephritis. Clinical correlation is recommended. 2. 6 mm nonobstructing calculus at the lower pole of the left kidney. 3. Large amount of stool throughout the colon. Electronically signed by: Los Wagoner MD 04/30/2025 12:06 PM EDT
--- NOTE | 2025-04-30 08:25 | ED.GENADULT ---
HPI - General Adult General Chief complaint: Nausea/Vomiting/Diarrhea Stated complaint: Vomiting Not Well for 10 Days Time Seen by Provider: 04/30/25 08:24 Source: patient and RN notes reviewed Mode of arrival: ambulatory Limitations: no limitations History of Present Illness ED Provider: Shruti Serna PA-C HPI narrative: This is a 89-year-old female, with a past medical history of breast cancer and rheumatoid arthritis, who presents emergency department with concerns of not feeling well over the last 10 days. Of note, patient was seen at urgent care on April 23, 2025 due to nausea and vomiting. Patient was again seen here at the emergency department on April 28 after a fall out of bed. She did not strike her head did not lose consciousness. She did have a head CT and cervical spine CT at that time which was unremarkable. Patient reports that over the last 10 days she has had nausea and vomiting and decreased appetite with the version to food. She states that this is unusual for her. She states that she was discharged with Zofran at her urgent care visit which she has been taking which has provided her with some relief however she states that she continues to have nausea and vomiting. She does report some soreness in the left side of her chest over the last several days, states that the pain is intermittent, does not currently have the chest pain. She also reports constipation, has not moved her bowels in several days. She denies any fevers, she does endorse chills. No shortness for breath. No abdominal pain. No urinary symptoms. No diarrhea. No other complaints or concerns at this time. MD complaint: Nausea, vomiting, constipation Onset (ago): day(s) Quality: aching Pain Consistency: constant Relieving factors: none Exacerbating factors: none Associated symptoms: denies other symptoms Treatments prior to arrival: none Related Data Home Medications ?Medication ?Instructions ?Recorded ?Confirmed acetaminophen 325 mg tablet 650 mg PO Q6H PRN Pain 08/13/20 04/30/25 (Tylenol) ascorbate calcium (vitamin C) 500 1,000 mg PO BID 08/13/20 04/30/25 mg tablet calcium 600 mg (as 1 tab PO BID 08/13/20 04/30/25 carbonate)-vitamin D3 10 mcg (400 unit) tablet (Calcium 600 + D(3)) losartan 100 mg tablet 100 mg PO DAILY 08/12/23 04/30/25 cyclosporine 0.05 % eye drops in a 1 drp ophthalmic (eye) BID 04/30/25 04/30/25 dropperette (Restasis) methotrexate sodium 2.5 mg tablet 15 mg PO WE 04/30/25 04/30/25 Previous Rx's ?Medication ?Instructions ?Recorded cholecalciferol (vitamin D3) 25 25 mcg PO DAILY #90 caps 12/20/24 mcg (1,000 unit) capsule folic acid 1 mg tablet 1 mg PO DAILY #90 tabs 04/05/25 Allergies Allergy/AdvReac Type Severity Reaction Status Date / Time sulfasalazine Allergy Intermediate nausea, Verified 04/30/25 08:27 vomiting Review of Systems Review of Systems: Yes all other systems are reviewed and are negative Constitutional: Constitutional: Reports as per [facility] Past Medical History Medical History Breast cancer 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 organ or systems involvement Surgical History H/O left breast biopsy Hx of cholecystectomy Hx of tonsillectomy Family History Family History Father CVD (cardiovascular disease) Social History Social History Household Members: None Housing: House Do you presently have visiting nurse or other home services: No Alcohol intake: current Alcohol intake frequency: holidays/special occasions only Alcohol type: wine Patient Tobacco Use Status: Never used Tobacco Smoked in Last 30 Days: No e-Cigarette/Vaping Use: Never Used Patient Interested in Nicotine Replacement: No Patient Given Instructions on How to Stop Smoking: No Second Hand Smoke Exposure: No Currently Displaying Signs/Symptoms of Drug Intoxication Withdrawal: No Have you been hit, kicked, punched, or otherwise hurt by someone within the past year? If so, by whom?: No Do you feel safe in your current relationship?: No Current Relationship Is there a partner from a previous relationship who is making you feel unsafe now?: No Are you made to feel afraid or neglected: No Advance Directives: No Advance Directives Information Provided: No Advance Directives on File: No Do you have a plan to hurt others: No Plan Recently lost weight without trying: No Eating poorly because of decreased appetite: No Nutrition Risks: No Nutritional Risk Patient : No : No Poor oral hygiene: No Physical Exam ED Vital Signs: Vital Signs - 24 hr 04/30/25 08:25 04/30/25 10:11 04/30/25 12:53 Temperature 98.4 F 98.3 F Pulse Rate 74 64 73 Respiratory Rate 16 16 18 Blood Pressure 141/66 H 183/84 H 177/72 H Pulse Oximetry 92 93 93 Oxygen Delivery Method Room Air Room Air Room Air BMI result Body Mass Index 31.4 Const General: cooperative, comfortable and no acute distress Orientation/consciousness: patient oriented x3 Limitations: no limitations HENMT Head: Yes normal to inspection, Yes normocephalic and Yes atraumatic Ears: hearing grossly normal bilaterally General nose exam: Normal external nose present Face and sinus: Yes normal facial exam Mouth: Normal oral and palatal mucosa present, oropharynx normal and moist mucous membranes Throat: Yes posterior oropharynx normal Eyes General: appearance normal, both eyes and all related structures Eyelids: Yes eyelids normal Conjunctivae: conjunctivae normal Sclerae: sclerae normal Pupils: Equal, round and reactive pupils present EOM: EOMs intact bilaterally Neck Neck: Yes normal visual inspection, Yes full ROM and Yes no lymphadenopathy Lymphatic: no lymphadenopathy noted Chest Chest palpation & inspection: normal inspection of the chest Resp Effort & Inspection: normal respiratory effort and able to speak in complete sentences Auscultation: clear to auscultation bilaterally, no crackles, no rales, no rhonchi and no wheezes Cardio Rate: regular rate Rhythm: regular rhythm Heart sounds: S1 normal heart sound present and S2 normal heart sound present GI Other: Abdomen is soft, nontender, nondistended Inspection: Yes normal to inspection General: Yes no CVA tenderness Back/Spine/Pelvis Back: no CVA tenderness Skin General skin exam: no rashes or lesions noted Trauma: no lacerations or abrasions Wounds: no wounds Neuro General: patient oriented x3 and moves all extremities Cranial nerves: Yes Equal, round and reactive pupils present Extrem General: Yes normal to inspection Right upper extremity: normal to inspection Left upper extremity: normal to inspection Right lower extremity: normal to inspection Left lower extremity: normal to inspection Medications Administered Generic Name Dose Route Start Last Admin Trade Name Freq PRN Reason Stop Dose Admin Ascorbic Acid 1,000 mg 04/30/25 21:00 04/30/25 20:24 Ascorbic Acid 500 Mg Tablet PO 1,000 mg BID JOSE Administration Docusate Sodium 100 mg 04/30/25 14:40 04/30/25 20:25 Docusate Sodium 100 Mg Capsule PO 100 mg BID JOSE Administration Sodium Chloride 3 ml 04/30/25 16:00 04/30/25 20:27 0.9 % Sodium Chloride Flush 3 Ml Syringe IVFLUSH 3 ml QSHIFT JOSE Administration Discontinued Medications Generic Name Dose Route Start Last Admin Trade Name Freq PRN Reason Stop Dose Admin Ceftriaxone Sodium 1 gm 04/30/25 12:52 04/30/25 13:20 Ceftriaxone Sodium 1 Gm Vial IVPUSH 04/30/25 12:53 1 gm ONCE ONE Administration Diatrizoate Meglum/Diatrizoate Sod 30 ml 04/30/25 11:36 04/30/25 11:37 Diatrizoate Meglumine, Sodium 30 Ml Solution PO 04/30/25 11:37 30 ml ONCE ONE Administration Sodium Chloride 1,000 mls @ 999 mls/hr 04/30/25 08:55 04/30/25 12:49 Ns IVCONT 04/30/25 09:55 Infused .Q1H1M ONE Infusion Iohexol 100 ml 04/30/25 11:35 04/30/25 11:36 Iohexol 350 Mg/Ml 100 Ml Infus..Btl IV 04/30/25 11:36 85 ml ONCE ONE Administration Labetalol HCl 5 mg 04/30/25 14:33 04/30/25 14:39 Labetalol Hcl 100 Mg/20 Ml Vial IVPUSH 04/30/25 14:34 5 mg ONCE ONE Administration Ondansetron HCl 4 mg 04/30/25 08:54 04/30/25 09:17 Ondansetron Hcl 4 Mg/2 Ml Vial IVPUSH 04/30/25 08:55 4 mg ONCE ONE Administration Medical Decision Making Medical Decision Making MDM Narrative: This is a 89-year-old female, with a past medical history of breast cancer in remission, and rheumatoid arthritis, who presents emergency department with complaints of nausea and vomiting for the last 10 days. On arrival, blood pressure mildly elevated at 141/66, all other vital signs within normal limits. She is speaking full sentences under no acute distress. Abdomen is soft and nontender. Patient has had aversion to food with the associated nausea and vomiting, unable to tolerate p.o.. This has been occurring for the last 10 days. She was seen previously at an urgent care was discharged on Zofran, denies taking any Zofran this morning. Differential diagnoses include electrolyte derangement, ACS, pancreatitis, SBO. Patient has no abdominal pain however given nausea and vomiting, and inability to tolerate p.o. with constipation, SBO is on my differential therefore we will order CT abdomen and pelvis with oral and IV contrast if patient is able to tolerate. Will also obtain EKG, and labs. >> CT revealing evidence of pylonephritis. Given infected urine, nausea and vomiting, this fits clinical picture. Discussed with patient and son at bedside. Given inabiity to tolerate PO, with generalized weakness, and pyelonephritis seen on CT, pt would be best served with admission. Discussed with hospitalist. Pt not meeting SIRs criteria, blood cultures obtained, ceftriaxone given, transfer of care initiated. Differential Diagnosis Differential Diagnoses: The differential diagnosis associated with the presentation includes See above Admission/Observation Consideration of admission/observation: Escalation of care including admission/observation considered Lab Data MDM Lab Attestation statement: I reviewed the patient's lab results. Labs with no leukocytosis, H&H stable, CHEM with no significant electrolyte derangements. 04/30/25 09:14 04/30/25 09:14 Labs: Lab Results 04/30/25 04/30/25 04/30/25 Range/Units 09:14 09:15 09:23 WBC 10.4 (4.8-10.8) X10*3/uL RBC 3.73 L (4.20-5.50) X10*6/uL Hgb 11.8 L (12.0-16.0) g/dl Hct 33.8 L (37.0-47.0) % MCV 90.6 (80.0-98.0) fL MCH 31.6 (27.0-33.0) pg MCHC 34.9 (31.0-35.0) g/dl RDW 13.9 (11.0-16.0) % Plt Count 209 D (160-400) X10*3/uL MPV 9.8 (9.4-12.3) fL Immature Gran % (Auto) 1.4 H (0.0-0.4) % Neut % (Auto) 79.8 H (45-73) % Lymph % (Auto) 11.7 L (20-40) % [place] % (Auto) 6.1 (2-11) % Eos % (Auto) 0.8 (0-4) % Baso % (Auto) 0.2 (0-2) % Lymph # (Auto) 1.2 (1.2-4.9) X10*3/uL [place] # (Auto) 0.6 (0.1-1.2) X10*3/uL Eos # (Auto) 0.1 (0.0-0.4) X10*3/uL Baso # (Auto) 0.0 (0.0-0.2) X10*3/uL Abs Immat Gran (auto) 0.14 H (0.00-0.03) X10*3/uL Absolute Neuts (auto) 8.3 (2.0-8.3) x10*3/uL Absolute Nucleated RBC 0.000 (0.0-0.012) X10*3/uL Nucleated RBC % (auto) 0.0 (0.0-0.2) /100WBC Sodium 134 L (135-145) mmol/L Potassium 3.8 (3.3-5.1) mmol/L Chloride 100 (96-108) mmol/L Carbon Dioxide 26 (22-29) mmol/L Anion Gap 12 (12-20) BUN 13 (9-16) mg/dL Creatinine 0.55 (0.5-1.4) mg/dL Estim Creat Clear Calc 77.9 Estimated GFR > 60 Random Glucose 106 (60-115) mg/dL Calcium 9.1 (8.4-10.2) mg/dL Magnesium 1.7 (1.6-2.6) mg/dL Total Bilirubin 0.8 (0.0-1.0) mg/dL Direct Bilirubin 0.4 (0.0-0.5) mg/dL AST 26 (5-31) U/L ALT 24 (0-31) U/L Alkaline Phosphatase 119 H (39-117) U/L Troponin I High Sens 16.8 D (<3.5-17.0) ng/L Total Protein 6.1 L (6.5-8.0) g/dL Albumin 3.2 L (3.5-5.0) g/dL Lipase 16 (8-78) U/L Urine Color Urine Appearance Urine pH (5.0-9.0) Ur Specific [place] (1.005-1.025) Urine Protein (Neg-Trace) mg/dL Urine Glucose (UA) (Negative) mg/dL Urine Ketones (Negative) mg/dL Urine Blood (Negative) Urine Nitrite (Negative) Ur Leukocyte Esterase (Negative) Urine RBC (0-2) /HPF Urine WBC (0-5) /HPF Ur Squamous Epith Cells (0-2) /HPF Urine Bacteria (None Seen) Hyaline Casts (0-2) /LPF Influenza Type A (PCR) NEGATIVE (Negative) Influenza Type B (PCR) NEGATIVE (Negative) RSV RNA Qual (PCR) NEGATIVE (Negative) SARS-CoV-2 RNA (RT-PCR) NEGATIVE (Negative) S. pyogenes GrpA FE Negative (Negative) 04/30/25 Range/Units 10:37 WBC (4.8-10.8) X10*3/uL RBC (4.20-5.50) X10*6/uL Hgb (12.0-16.0) g/dl Hct (37.0-47.0) % MCV (80.0-98.0) fL MCH (27.0-33.0) pg MCHC (31.0-35.0) g/dl RDW (11.0-16.0) % Plt Count (160-400) X10*3/uL MPV (9.4-12.3) fL Immature Gran % (Auto) (0.0-0.4) % Neut % (Auto) (45-73) % Lymph % (Auto) (20-40) % [place] % (Auto) (2-11) % Eos % (Auto) (0-4) % Baso % (Auto) (0-2) % Lymph # (Auto) (1.2-4.9) X10*3/uL [place] # (Auto) (0.1-1.2) X10*3/uL Eos # (Auto) (0.0-0.4) X10*3/uL Baso # (Auto) (0.0-0.2) X10*3/uL Abs Immat Gran (auto) (0.00-0.03) X10*3/uL Absolute Neuts (auto) (2.0-8.3) x10*3/uL Absolute Nucleated RBC (0.0-0.012) X10*3/uL Nucleated RBC % (auto) (0.0-0.2) /100WBC Sodium (135-145) mmol/L Potassium (3.3-5.1) mmol/L Chloride (96-108) mmol/L Carbon Dioxide (22-29) mmol/L Anion Gap (12-20) BUN (9-16) mg/dL Creatinine (0.5-1.4) mg/dL Estim Creat Clear Calc Estimated GFR Random Glucose (60-115) mg/dL Calcium (8.4-10.2) mg/dL Magnesium (1.6-2.6) mg/dL Total Bilirubin (0.0-1.0) mg/dL Direct Bilirubin (0.0-0.5) mg/dL AST (5-31) U/L ALT (0-31) U/L Alkaline Phosphatase (39-117) U/L Troponin I High Sens (<3.5-17.0) ng/L Total Protein (6.5-8.0) g/dL Albumin (3.5-5.0) g/dL Lipase (8-78) U/L Urine Color Yellow Urine Appearance Clear Urine pH 7.5 (5.0-9.0) Ur Specific [place] <= 1.005 (1.005-1.025) Urine Protein Negative (Neg-Trace) mg/dL Urine Glucose (UA) Negative (Negative) mg/dL Urine Ketones Trace (Negative) mg/dL Urine Blood Negative (Negative) Urine Nitrite Positive H (Negative) Ur Leukocyte Esterase Moderate (2+) H (Negative) Urine RBC 0-2 (0-2) /HPF Urine WBC 21-50 H (0-5) /HPF Ur Squamous Epith Cells 3-5 (0-2) /HPF Urine Bacteria 4+ (None Seen) Hyaline Casts 0-2 (0-2) /LPF Influenza Type A (PCR) (Negative) Influenza Type B (PCR) (Negative) RSV RNA Qual (PCR) (Negative) SARS-CoV-2 RNA (RT-PCR) (Negative) S. pyogenes GrpA FE (Negative) Independent Interpretation I performed an independent interpretation of an: EKG Interpretation: Vent. Rate : 66 BPM Atrial Rate : 66 BPM P-R Int : 160 ms QRS Dur : 90 ms QT Int : 372 ms P-R-T Axes : 0 -7 17 degrees QTcB Int : 389 ms Normal sinus rhythm Normal ECG When compared with ECG of 18-Oct-2024 16:31, No significant change was found Radiology Impression Discussion of test interpretation with radiology: I have reviewed the radiologist's reading. Radiologist Impression: EXAMINATION: CT ABDOMEN PELVIS WITH IV CONTRAST HISTORY: N/V, constipation COMPARISON: There are no prior studies for available comparison. TECHNIQUE: CT scan of the abdomen and pelvis was performed following administration of 85 mL Omnipaque 350 using standard departmental protocol. Coronal and sagittal reformatted images were generated and reviewed. Oral contrast material was not administered at the request of the referring physician. This CT exam was performed with one or more of the following dose reduction techniques: automated exposure control, adjustment of the mA and/or kV according to patient size, use of iterative reconstruction technique. DLP: 645 mGy-cm FINDINGS: LOWER CHEST: The visualized lung bases are clear. There is no pleural effusion. CARDIOVASCULATURE: The heart is normal in size. There is no pericardial effusion. LIVER: The liver is normal in size and contour. No liver mass is identified. The hepatic and portal veins are patent. GALLBLADDER / BILE DUCTS: The gallbladder is surgically absent. There is no intra or extrahepatic biliary ductal dilatation. SPLEEN: The spleen is normal in size. No focal splenic lesion is identified. PANCREAS: The pancreas is unremarkable in appearance. ADRENAL GLANDS: Within normal limits. KIDNEYS/RETROPERITONEUM: There is a 5.9 cm cyst at the lower pole of the right kidney. There is mild prominence of the right renal collecting system. There is scarring at the upper pole of the left kidney. The left kidney demonstrates a heterogeneous nephrogram and there is mild enhancement of the renal pelvis and proximal ureter. Findings are suggestive of acute pyelonephritis. There is a 6 mm nonobstructing calculus at the lower pole. LYMPH NODES: No abdominal or pelvic lymphadenopathy. VASCULATURE: The abdominal aorta demonstrates atherosclerotic calcification, but is normal in caliber. MESENTERY/PERITONEUM: No free fluid. No masses. There is no free intraperitoneal gas. STOMACH: The stomach is collapsed, limiting evaluation. SMALL BOWEL: The small bowel is normal in caliber. COLON: There is a large amount of stool throughout the colon. There is diverticulosis of the sigmoid colon, without evidence of diverticulitis. APPENDIX: Normal. URINARY BLADDER/PELVIC ORGANS: The urinary bladder is unremarkable. The uterus is unremarkable. BONES / SOFT TISSUES: There is a fat-containing umbilical hernia. There is degenerative disc disease of the spine. CT/CT abdomen pelvis w IV con IMPRESSION: 1. Heterogeneous left nephrogram with mild enhancement of the renal pelvis and proximal ureter. Findings are suspicious for acute pyelonephritis. Clinical correlation is recommended. 2. 6 mm nonobstructing calculus at the lower pole of the left kidney. 3. Large amount of stool throughout the colon. Electronically signed by: Los Wagoner MD 04/30/2025 12:06 PM EDT RP Dictated By: Los Wagoner MD XR/XR chest 1V IMPRESSION: Mild interstitial lung edema versus acute small airway inflammatory processes Electronically signed by: Russell Payne MD 04/30/2025 09:07 AM EDT RP Dictated By: Russell Medina MD Critical Care Time Critical Care Time Critical Care Time: Yes Total Critical Care Time: 37 Attestation: I have personally provided critical care time exclusive of time spent on separately billable procedures. Time includes review of lab data, radiology results, discussion with consultants, and monitoring for potential decompensation. Intervention performed as documented. Discharge Plan Discharge Clinical Impression: Acute pyelonephritis Patient Disposition: Admitted As Inpatient Interventions: Admission Worksheet (ED) Last Done: 04/30/25 14:48 Discharge Date/Time: 04/30/25 15:14
--- NOTE | 2025-04-30 08:54 | ECG_ITS ---
Test Reason : CP Blood Pressure : */* mmHG Vent. Rate : 66 BPM Atrial Rate : 66 BPM P-R Int : 160 ms QRS Dur : 90 ms QT Int : 372 ms P-R-T Axes : 0 -7 17 degrees QTcB Int : 389 ms Normal sinus rhythm Normal ECG When compared with ECG of 18-Oct-2024 16:31, No significant change was found Referred By: Shruti Serna Electronically Signed By: NAT ABEL MD
[2025-04-30 09:22] LABS: MANUAL DIFF FLAG NO
[2025-04-30 09:24] LABS: Hematocrit 33.8 % (37.0-47.0); Hemoglobin 11.8 g/dl (12.0-16.0); Imm Gran Abs Auto 0.14 X10*3/uL (0.00-0.03); Imm Gran Pct Auto 1.4 % (0.0-0.4); Lymphocytes Absolute Auto 1.2 X10*3/uL (1.2-4.9); Mean Corpuscular HGB Conc 34.9 g/dl (31.0-35.0); Mean Corpuscular Hemoglobin 31.6 pg (27.0-33.0); Mean Corpuscular Volume 90.6 fL (80.0-98.0); NRBC Abs Auto 0.000 X10*3/uL (0.0-0.012); NRBC Pct Auto 0.0 /100WBC (0.0-0.2); Platelet Count 209 X10*3/uL (160-400); Red Blood Count 3.73 X10*6/uL (4.20-5.50); White Blood Count 10.4 X10*3/uL (4.8-10.8)
[2025-04-30 09:41] LABS: Alanine Aminotransferase 24 U/L (0-31); Albumin Level 3.2 g/dL (3.5-5.0); Alkaline Phosphatase 119 U/L (39-117); Anion Gap 12 (12-20); Aspartate Amino Transferase 26 U/L (5-31); Blood Urea Nitrogen 13 mg/dL (9-16); Calcium 9.1 mg/dL (8.4-10.2); Carbon Dioxide 26 mmol/L (22-29); Chloride 100 mmol/L (96-108); Creatinine Clr Calc Pharmacy 77.9; Estimated Glomerular Filt Rate > 60; Lipase 16 U/L (8-78); Magnesium 1.7 mg/dL (1.6-2.6); Potassium 3.8 mmol/L (3.3-5.1); Sodium 134 mmol/L (135-145); Total Protein 6.1 g/dL (6.5-8.0)
[2025-04-30 09:44] LABS: IDNOW Serial# 58CA691E; Strep A Nucleic Acid Negative (Negative)
[2025-04-30 09:45] LABS: Troponin-I High Sensitivity 16.8 ng/L (<3.5-17.0)
[2025-04-30 10:01] LABS: Resp Syncy Virus RNA Qual PCR NEGATIVE (Negative); SARS COV2 PCR INHOUSE NEGATIVE (Negative)
[2025-04-30 10:49] LABS: Appearance Urine Clear; Glucose Urine UA Negative (Negative); PH 7.5 (5.0-9.0); Specific Gravity - Urine <= 1.005 (1.005-1.025); UMIC TRIGGER UACC YES
[2025-04-30 10:55] LABS: UACC Culture Trigger YES
[2025-04-30] MEDS: iohexoL 350 MG/ML 100 ML INFUS..BTL IV (11:36)
--- NOTE | 2025-04-30 12:58 | PC.NURSE ---
BP's elevated (183/84, 177/72). Shruti SCHULTZ made aware.
--- NOTE | 2025-04-30 13:31 | PM.IMHP ---
History of Present Illness Date of Service: 04/30/25 Attending physician on admission: Nilton Darling Chief Complaint: N/V, weakness Pt is an 89-year-old female with a PMH significant for?rheumatoid arthritis on methotrexate, osteoporosis, and hx of breast cancer who presents to the ED with?nausea and vomiting x10 days. Reports has been unable to keep foods or fluids down during this time. Denies significant abdominal pain. No fever, but has felt chills. Occasional headache. Pt also complains of chronic sacral pain worse than baseline for the past 6 days. Overall has been feeling generally weak and unwell. Presented to the ED 2 days prior on 04/28 after a mechanical fall at home where she slipped on a rug and landed on her back. Workup at that time was negative with CT of head and C-spine, and x-ray of lumbar spine. Pt reports presents today due to continued nausea and vomiting that has not improved. Also reports mild constipation with last bowel movement 3 days ago. Denies chest pain/pressure, palpitations. Denies significant SOB or difficulty breathing. In the ED pt was hypertensive up to 183/84, vitals otherwise stable and WNL. Labs were significant for UA positive for UTI, otherwise overall grossly unremarkable and around baseline for pt no leukocytosis. Stable H&H. Sodium mildly low at 134, electrolytes otherwise WNL. Renal function baseline. Hepatic function WNL. UA positive for UTI. CT of abdomen/pelvis showed acute left pyelonephritis, and 6 mm nonobstructing calculus lower pole of left kidney, as well as large amount of stool. CXR showed mild interstitial lung edema vs acute small airway inflammatory process. EKG demonstrated normal sinus rhythm without evidence of ischemic changes. Pt was treated in the ED with IVF, ondansetron, and ceftriaxone. Pt is admitted to the hospital for treatment and further evaluation of generalized weakness in the setting of acute pyelonephritis. Review of Systems Review of Systems: Negative except for that which is stated in the HPI. [facility]LY [facility] Medical History Breast cancer 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 organ or systems involvement Family History Father CVD (cardiovascular disease) Surgical History H/O left breast biopsy Hx of cholecystectomy Hx of tonsillectomy Social History Household Members: None Housing: House Alcohol intake: current Alcohol intake frequency: holidays/special occasions only Alcohol type: wine Patient Tobacco Use Status: Never used Tobacco e-Cigarette/Vaping Use: Never Used Advance Directives: Yes Advance Directives Information Provided: Yes Advance Directives on File: No Do you have a plan to hurt others: No Plan Meds Allergies Allergy/AdvReac Type Severity Reaction Status Date / Time sulfasalazine Allergy Intermediate nausea, Verified 04/30/25 08:27 vomiting Home Medications ?Medication ?Instructions ?Recorded ?Confirmed ?Last Taken ?Type acetaminophen 325 mg tablet 650 mg PO Q6H PRN Pain 08/13/20 04/30/25 04/30/25 History (Tylenol) ascorbate calcium (vitamin C) 500 1,000 mg PO BID 08/13/20 04/30/25 04/29/25 History mg tablet calcium 600 mg (as 1 tab PO BID 08/13/20 04/30/25 04/29/25 History carbonate)-vitamin D3 10 mcg (400 unit) tablet (Calcium 600 + D(3)) losartan 100 mg tablet 100 mg PO DAILY 08/12/23 04/30/25 04/29/25 History cyclosporine 0.05 % eye drops in a 1 drp ophthalmic (eye) BID 04/30/25 04/30/25 04/29/25 History dropperette (Restasis) methotrexate sodium 2.5 mg tablet 15 mg PO WE 04/30/25 04/30/25 04/24/25 History Physical Exam Vital Signs and Narrative: Vital Signs: Last Vital Signs Temp 98.3 F 04/30/25 12:53 Pulse 73 04/30/25 12:53 Resp 18 04/30/25 12:53 BP 177/72 H 04/30/25 12:53 Pulse Ox 93 04/30/25 12:53 O2 Del Method Room Air 04/30/25 12:53 BMI result Body Mass Index 31.4 Constitutional: Alert, in no acute distress. Mental Status: Oriented to person, place and time. Eyes: Pupils are equal, round, and reactive to light. Respiratory: Clear to auscultation bilaterally. No wheezing, rales, or rhonchi. Cardiovascular: S1, S2 regular. No murmurs, rubs, or gallops. Gastrointestinal: Abdomen soft, non-tender, non-distended. Normal bowel sounds. Neurologic: Cranial nerves II-XII are grossly intact bilaterally. No focal neurological deficits. Moves all extremities spontaneously. Back: No definitive CVA tenderness; mild tenderness of sacral area Skin: Warm, dry. Musculoskeletal: No cyanosis or clubbing. Extremities: No edema. Psychiatric: Normal mood and affect. Results Labs 04/30/25 09:14 04/30/25 09:14 Labs: Laboratory Results - last 24 hr 04/30/25 04/30/25 04/30/25 09:14 09:15 09:23 MCV 90.6 MCH 31.6 MCHC 34.9 RDW 13.9 Plt Count 209 D MPV 9.8 Immature Gran % (Auto) 1.4 H Neut % (Auto) 79.8 H Lymph % (Auto) 11.7 L [place] % (Auto) 6.1 Eos % (Auto) 0.8 Baso % (Auto) 0.2 Lymph # (Auto) 1.2 [place] # (Auto) 0.6 Eos # (Auto) 0.1 Baso # (Auto) 0.0 Abs Immat Gran (auto) 0.14 H Absolute Neuts (auto) 8.3 Absolute Nucleated RBC 0.000 Nucleated RBC % (auto) 0.0 Anion Gap 12 Estim Creat Clear Calc 77.9 Estimated GFR > 60 Random Glucose 106 Calcium 9.1 Magnesium 1.7 Total Bilirubin 0.8 Direct Bilirubin 0.4 AST 26 ALT 24 Alkaline Phosphatase 119 H Troponin I High Sens 16.8 D Total Protein 6.1 L Albumin 3.2 L Lipase 16 Urine Color Urine Appearance Urine pH Ur Specific [place] Urine Protein Urine Glucose (UA) Urine Ketones Urine Blood Urine Nitrite Ur Leukocyte Esterase Urine RBC Urine WBC Ur Squamous Epith Cells Urine Bacteria Hyaline Casts Influenza Type A (PCR) NEGATIVE Influenza Type B (PCR) NEGATIVE RSV RNA Qual (PCR) NEGATIVE SARS-CoV-2 RNA (RT-PCR) NEGATIVE S. pyogenes GrpA FE Negative 04/30/25 10:37 MCV MCH MCHC RDW Plt Count MPV Immature Gran % (Auto) Neut % (Auto) Lymph % (Auto) [place] % (Auto) Eos % (Auto) Baso % (Auto) Lymph # (Auto) [place] # (Auto) Eos # (Auto) Baso # (Auto) Abs Immat Gran (auto) Absolute Neuts (auto) Absolute Nucleated RBC Nucleated RBC % (auto) Anion Gap Estim Creat Clear Calc Estimated GFR Random Glucose Calcium Magnesium Total Bilirubin Direct Bilirubin AST ALT Alkaline Phosphatase Troponin I High Sens Total Protein Albumin Lipase Urine Color Yellow Urine Appearance Clear Urine pH 7.5 Ur Specific [place] <= 1.005 Urine Protein Negative Urine Glucose (UA) Negative Urine Ketones Trace Urine Blood Negative Urine Nitrite Positive H Ur Leukocyte Esterase Moderate (2+) H Urine RBC 0-2 Urine WBC 21-50 H Ur Squamous Epith Cells 3-5 Urine Bacteria 4+ Hyaline Casts 0-2 Influenza Type A (PCR) Influenza Type B (PCR) RSV RNA Qual (PCR) SARS-CoV-2 RNA (RT-PCR) S. pyogenes GrpA FE Imaging Radiologist's Impressions: Impressions Chest X-Ray 04/30/25 07:55 IMPRESSION: Mild interstitial lung edema versus acute small airway inflammatory processes Electronically signed by: Russell Payne MD 04/30/2025 09:07 AM EDT RP Abdomen/Pelvis CT 04/30/25 10:33 IMPRESSION: 1. Heterogeneous left nephrogram with mild enhancement of the renal pelvis and proximal ureter. Findings are suspicious for acute pyelonephritis. Clinical correlation is recommended. 2. 6 mm nonobstructing calculus at the lower pole of the left kidney. 3. Large amount of stool throughout the colon. Electronically signed by: Los Wagoner MD 04/30/2025 12:06 PM EDT RP Assessment and Plan (1) Acute pyelonephritis: Status: Acute Plan Pt is an 89-year-old female with a PMH significant for?rheumatoid arthritis on methotrexate, osteoporosis, and hx of breast cancer who presents to the ED with?nausea and vomiting x10 days. Pt is admitted to the hospital for treatment and further evaluation of generalized weakness in the setting of acute pyelonephritis. Generalized weakness in the setting of acute pyelonephritis UA+, CT of abd concerning for left pyelonephritis No sepsis Will treat with ceftriaxone, started 04/30/[address] Ne[address] CT of abd showing 6 mm nonobstructing calculus at the lower pole of the left kidney Given pyelo and persistent N/V, will get urology consult N/V Unclear etiology: possibly in the setting of pyelo/stone Antiemetics HTN BP has been elevated as high at 183/84 We will give labetalol 5 mg IV Continue losartan RA Continue methotrexate Full Code Attending:?Dr. Darling DVT Prophylaxis: Lovenox Given that pt has been unable to sufficiently tolerate p.o. intake for the past 10 days, generalized weakness with recent fall at home, significant comorbidities, advanced age, and lives alone, she is at significant risk for complications and further deconditioning without admission to the hospital for at least 2 overnight for treatment of pyelonephritis with IV antibiotics, supportive care, and PT consultation for safe disposition home. Quality Stroke Does the patient have a stroke diagnosis?: No VTE Prior VTE?: No VTE Risk Level:: Medical - moderate - high VTE Device Contraindication: Treatment Not Indicated VTE Drug Contraindication: N/A - Med Ordered
--- NOTE | 2025-04-30 14:13 | PHA.MEDREC ---
Pharmacy Consult ? Medication Reconciliation Pharmacy has completed the medication reconciliation. Spoke to patient and son Aurelio at bedside to confirm medication list. Patient has a written home med list and son has pictures of all the rx bottles. Patient confirmed she takes methotrexate 2.5 mg 6 tablets on wednesdays. Last dose of medications was yesterday 04/29/25, except she took a tylenol today 04/30/25.
[2025-04-30] MEDS: 0.9 % Sodium Chloride Flush 3 ML SYRINGE IVFLUSH ×2 (15:42→20:27)
--- NOTE | 2025-04-30 16:22 | HO.SKINPHOTO ---
Bilateral Buttock folds on admission from ED to 378
--- NOTE | 2025-04-30 17:15 | P.CNUR_ITS ---
History of Present Illness Consult details Consult date: 04/30/25 Narrative: 89-year-old female with a PMH significant for?rheumatoid arthritis on methotrexate, osteoporosis, and hx of breast cancer who presents to the ED with?nausea and vomiting x10 days. No complaints of abdominal pain. Urine nitrite positive, positive leukocytes and bacteria. CT scan abdomen and pelvis/IV contrast-left kidney nonobstructing kidney stone with inflammatory changes consistent with pyelonephritis. The patient is currently receiving IV antibiotics. Review of Systems 2 Review of Systems: Per history and physical PMFSH Past Medical History Medical History Breast cancer 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 organ or systems involvement Family History Family History Father CVD (cardiovascular disease) Surgical History Surgical History H/O left breast biopsy Hx of cholecystectomy Hx of tonsillectomy Social History Social History Household Members: None Housing: House Do you presently have visiting nurse or other home services: No Alcohol intake: current Alcohol intake frequency: holidays/special occasions only Alcohol type: wine Patient Tobacco Use Status: Never used Tobacco Smoked in Last 30 Days: No e-Cigarette/Vaping Use: Never Used Patient Interested in Nicotine Replacement: No Patient Given Instructions on How to Stop Smoking: No Second Hand Smoke Exposure: No Currently Displaying Signs/Symptoms of Drug Intoxication Withdrawal: No Have you been hit, kicked, punched, or otherwise hurt by someone within the past year? If so, by whom?: No Do you feel safe in your current relationship?: No Current Relationship Is there a partner from a previous relationship who is making you feel unsafe now?: No Are you made to feel afraid or neglected: No Advance Directives: No Advance Directives Information Provided: No Advance Directives on File: No Do you have a plan to hurt others: No Plan Recently lost weight without trying: No Eating poorly because of decreased appetite: No Nutrition Risks: No Nutritional Risk Patient : No : No Poor oral hygiene: No Meds Allergies Allergy/AdvReac Type Severity Reaction Status Date / Time sulfasalazine Allergy Intermediate nausea, Verified 04/30/25 08:27 vomiting Active Medications: Current Medications Acetaminophen (Acetaminophen 325 Mg Tablet) 650 mg PO Q6H PRN PRN Reason: Pain, Mild 1-3,fever,headache Ascorbic Acid (Ascorbic Acid 500 Mg Tablet) 1,000 mg PO BID [facility] Calcium Carbonate (Calcium Carbonate 750 Mg Tab.Chew) 750 mg PO Q4H PRN PRN Reason: Heartburn Ceftriaxone Sodium (Ceftriaxone Sodium 1 Gm Vial) 1 gm IVPUSH Q24H [facility] Docusate Sodium (Docusate Sodium 100 Mg Capsule) 100 mg PO BID [facility] Last Admin: 04/30/25 14:56 Dose: Not Given Folic Acid (Folic Acid 1 Mg Tablet) 1 mg PO DAILY [facility] Losartan Potassium (Losartan Potassium 50 Mg Tablet) 100 mg PO DAILY [facility]; Protocol Melatonin (Melatonin 3 Mg Tablet) 6 mg PO BEDTIME PRN PRN Reason: Insomnia Methotrexate (Methotrexate Sodium 2.5 Mg Tablet) 15 mg PO We@0900 [facility] Non-Formulary Medication (Cyclosporine [Restasis]) 1 drop EYE-BOTH BID [facility] Ondansetron HCl (Ondansetron Hcl 4 Mg/2 Ml Vial) 4 mg IVPUSH Q8H PRN PRN Reason: Nausea and Vomiting Polyethylene Glycol (Polyethylene Glycol 3350 17 Gm Powd.Pack) 17 gm PO DAILY PRN PRN Reason: Constipation Sodium Chloride (0.9 % Sodium Chloride Flush 3 Ml Syringe) 3 ml IVFLUSH QSHIFT [facility] Last Admin: 04/30/25 15:42 Dose: 3 ml Vitamin D (Cholecalciferol (Vitamin D3) 25 Mcg Tablet) 25 mcg PO DAILY [facility] Home Medications ?Medication ?Instructions ?Recorded ?Confirmed ?Last Taken ?Type acetaminophen 325 mg tablet 650 mg PO Q6H PRN Pain 04/30/25 04/30/25 History (Tylenol) ascorbate calcium (vitamin C) 500 1,000 mg PO BID 07/3104/30/25 04/29/25 History mg tablet calcium 600 mg (as 1 tab PO BID 08/13/2004/29/25 History carbonate)-vitamin D3 10 mcg (400 unit) tablet (Calcium 600 + D(3)) losartan 100 mg tablet 100 mg PO DAILY 08/12/2311/2404/29/25 History cyclosporine 0.05 % eye drops in a 1 drp ophthalmic (e ye) BID 04/30/25 04/30/25 04/29/25 History dropperette (Restasis) methotrexate sodium 2.5 mg tablet 15 mg PO WE 04/30/25 04/30/25 04/24/25 History Physical Exam 2 Vital Signs: Vital Signs: Last Vital Signs Temp 98.2 F 04/30/25 15:58 Pulse 72 04/30/25 15:58 Resp 16 04/30/25 15:58 BP 122/95 H 04/30/25 15:58 Pulse Ox 94 04/30/25 15:58 O2 Del Method Room Air 04/30/25 15:58 BMI result Body Mass Index 31.4 Results Labs 04/30/25 09:14 04/30/25 09:14 Labs: Abnormal lab results 04/30/25 04/30/25 Range/Units 09:14 10:37 RBC 3.73 L (4.20-5.50) X10*6/uL Hgb 11.8 L (12.0-16.0) g/dl Hct 33.8 L (37.0-47.0) % Immature Gran % (Auto) 1.4 H (0.0-0.4) % Neut % (Auto) 79.8 H (45-73) % Lymph % (Auto) 11.7 L (20-40) % Abs Immat Gran (auto) 0.14 H (0.00-0.03) X10*3/uL Sodium 134 L (135-145) mmol/L Alkaline Phosphatase 119 H (39-117) U/L Total Protein 6.1 L (6.5-8.0) g/dL Albumin 3.2 L (3.5-5.0) g/dL Urine Nitrite Positive H (Negative) Ur Leukocyte Esterase Moderate (2+) H (Negative) Urine WBC 21-50 H (0-5) /HPF Short CBC 04/30/25 Range/Units 09:14 WBC 10.4 (4.8-10.8) X10*3/uL Hgb 11.8 L (12.0-16.0) g/dl Hct 33.8 L (37.0-47.0) % Plt Count 209 D (160-400) X10*3/uL BMP 04/30/25 09:14 Sodium 134 L Potassium 3.8 Chloride 100 Carbon Dioxide 26 BUN 13 Creatinine 0.55 Calcium 9.1 Liver Function 04/30/25 Range/Units 09:14 Total Bilirubin 0.8 (0.0-1.0) mg/dL Direct Bilirubin 0.4 (0.0-0.5) mg/dL AST 26 (5-31) U/L ALT 24 (0-31) U/L Alkaline Phosphatase 119 H (39-117) U/L Albumin 3.2 L (3.5-5.0) g/dL Urine 04/30/25 Range/Units 10:37 Urine Color Yellow Urine Appearance Clear Urine pH 7.5 (5.0-9.0) Ur Specific [place] <= 1.005 (1.005-1.025) Urine Protein Negative (Neg-Trace) mg/dL Urine Glucose (UA) Negative (Negative) mg/dL Imaging Abdomen CT scan report/results: report reviewed and image reviewed CT scan - pelvis: report reviewed and image reviewed Additional studies: Date of Service: 04/30/25 EXAMINATION: CT ABDOMEN PELVIS WITH IV CONTRAST HISTORY: N/V, constipation COMPARISON: There are no prior studies for available comparison. TECHNIQUE: CT scan of the abdomen and pelvis was performed following administration of 85 mL Omnipaque 350 using standard departmental protocol. Coronal and sagittal reformatted images were generated and reviewed. Oral contrast material was not administered at the request of the referring physician. This CT exam was performed with one or more of the following dose reduction techniques: automated exposure control, adjustment of the mA and/or kV according to patient size, use of iterative reconstruction technique. DLP: 645 mGy-cm FINDINGS: LOWER CHEST: The visualized lung bases are clear. There is no pleural effusion. CARDIOVASCULATURE: The heart is normal in size. There is no pericardial effusion. LIVER: The liver is normal in size and contour. No liver mass is identified. The hepatic and portal veins are patent. GALLBLADDER / BILE DUCTS: The gallbladder is surgically absent. There is no intra or extrahepatic biliary ductal dilatation. SPLEEN: The spleen is normal in size. No focal splenic lesion is identified. PANCREAS: The pancreas is unremarkable in appearance. ADRENAL GLANDS: Within normal limits. KIDNEYS/RETROPERITONEUM: There is a 5.9 cm cyst at the lower pole of the right kidney. There is mild prominence of the right renal collecting system. There is scarring at the upper pole of the left kidney. The left kidney demonstrates a heterogeneous nephrogram and there is mild enhancement of the renal pelvis and proximal ureter. Findings are suggestive of acute pyelonephritis. There is a 6 mm nonobstructing calculus at the lower pole. LYMPH NODES: No abdominal or pelvic lymphadenopathy. VASCULATURE: The abdominal aorta demonstrates atherosclerotic calcification, but is normal in caliber. MESENTERY/PERITONEUM: No free fluid. No masses. There is no free intraperitoneal gas. STOMACH: The stomach is collapsed, limiting evaluation. SMALL BOWEL: The small bowel is normal in caliber. COLON: There is a large amount of stool throughout the colon. There is diverticulosis of the sigmoid colon, without evidence of diverticulitis. APPENDIX: Normal. URINARY BLADDER/PELVIC ORGANS: The urinary bladder is unremarkable. The uterus is unremarkable. BONES / SOFT TISSUES: There is a fat-containing umbilical hernia. There is degenerative disc disease of the spine. IMPRESSION: 1. Heterogeneous left nephrogram with mild enhancement of the renal pelvis and proximal ureter. Findings are suspicious for acute pyelonephritis. Clinical correlation is recommended. 2. 6 mm nonobstructing calculus at the lower pole of the left kidney. Assessment and Plan (1) Acute pyelonephritis: Status: Acute (2) UTI (urinary tract infection): Status: Acute (3) Kidney stone on left side: Status: Acute Plan Receiving antibiotics. Renal function normal at this time. Urology will monitor conservatively for now. Procedures Date of Service Date of Service: 04/30/25
[2025-05-01 03:16] VITALS: BP 148/70; PULSE 65; RESP 20; TEMP 36.7; O2SAT 93
[2025-05-01 06:44] LABS: Anion Gap 13 (12-20); Blood Urea Nitrogen 11 mg/dL (9-16); Calcium 8.6 mg/dL (8.4-10.2); Carbon Dioxide 26 mmol/L (22-29); Chloride 102 mmol/L (96-108); Creatinine Clr Calc Pharmacy 73.9; Estimated Glomerular Filt Rate > 60; Potassium 3.7 mmol/L (3.3-5.1); Sodium 137 mmol/L (135-145)
[2025-05-01 07:43] VITALS: BP 148/56; PULSE 67; RESP 17; TEMP 36.1; O2SAT 92
[2025-05-01] MEDS: 0.9 % Sodium Chloride Flush 3 ML SYRINGE IVFLUSH ×3 (09:02→20:41)
--- NOTE | 2025-05-01 09:34 | HO.PM.IMPN ---
Subjective Subjective Date of Service: 05/01/25 Review of Systems Follow up for weakness, pyelonephritis Doing better today, still mild flank pain Reports constipation Physical Exam Vital Signs: Vital Signs: Last Vital Signs Temp 97.0 F 05/01/25 07:43 Pulse 67 05/01/25 07:43 Resp 17 05/01/25 07:43 BP 148/56 H 05/01/25 07:43 Pulse Ox 92 05/01/25 07:43 O2 Del Method Room Air 05/01/25 07:43 BMI result Body Mass Index 31.4 Appearing in no acute distress lung sounds are clear to auscultation heart regular rate rhythm, clear S1, S2 positive bowel sounds, abdomen is soft, nontender neuro patient is alert x3, no focal deficits Objective Data Active Medications Acetaminophen (Acetaminophen 325 Mg Tablet) 650 mg PO Q6H PRN PRN Reason: Pain, Mild 1-3,fever,headache Last Admin: 05/01/25 03:09 Dose: 650 mg Documented By: JIGNA Ascorbic Acid (Ascorbic Acid 500 Mg Tablet) 1,000 mg PO BID [facility] Last Admin: 05/01/25 09:01 Dose: 1,000 mg Documented By: ANDREW Calcium Carbonate (Calcium Carbonate 750 Mg Tab.Chew) 750 mg PO Q4H PRN PRN Reason: Heartburn Ceftriaxone Sodium (Ceftriaxone Sodium 1 Gm Vial) 1 gm IVPUSH Q24H [facility] Docusate Sodium (Docusate Sodium 100 Mg Capsule) 100 mg PO BID [facility] Last Admin: 05/01/25 09:01 Dose: 100 mg Documented By: ANDREW Folic Acid (Folic Acid 1 Mg Tablet) 1 mg PO DAILY [facility] Last Admin: 05/01/25 09:02 Dose: 1 mg Documented By: ANDREW Losartan Potassium (Losartan Potassium 50 Mg Tablet) 100 mg PO DAILY [facility]; Protocol Last Admin: 05/01/25 09:01 Dose: 100 mg Documented By: ANDREW Melatonin (Melatonin 3 Mg Tablet) 6 mg PO BEDTIME PRN PRN Reason: Insomnia Methotrexate (Methotrexate Sodium 2.5 Mg Tablet) 15 mg PO We@0900 [facility] Last Admin: 05/01/25 09:22 Dose: 15 mg Documented By: PHILIPPE Non-Formulary Medication (Cyclosporine [Restasis]) 1 drop EYE-BOTH BID [facility] Ondansetron HCl (Ondansetron Hcl 4 Mg/2 Ml Vial) 4 mg IVPUSH Q8H PRN PRN Reason: Nausea and Vomiting Polyethylene Glycol (Polyethylene Glycol 3350 17 Gm Powd.Pack) 17 gm PO DAILY PRN PRN Reason: Constipation Sodium Chloride (0.9 % Sodium Chloride Flush 3 Ml Syringe) 3 ml IVFLUSH QSHIFT [facility] Last Admin: 05/01/25 09:02 Dose: 3 ml Documented By: ANDREW Vitamin D (Cholecalciferol (Vitamin D3) 25 Mcg Tablet) 25 mcg PO DAILY [facility] Last Admin: 05/01/25 09:01 Dose: 25 mcg Documented By: ANDREW Labs 04/30/25 09:14 05/01/25 05:45 Labs: Laboratory Results - last 24 hr 04/30/25 04/30/25 04/30/25 09:14 09:15 09:23 Anion Gap 12 Estim Creat Clear Calc 77.9 Estimated GFR > 60 Random Glucose 106 Calcium 9.1 Magnesium 1.7 Total Bilirubin 0.8 Direct Bilirubin 0.4 AST 26 ALT 24 Alkaline Phosphatase 119 H Troponin I High Sens 16.8 D Total Protein 6.1 L Albumin 3.2 L Lipase 16 Urine Color Urine Appearance Urine pH Ur Specific [place] Urine Protein Urine Glucose (UA) Urine Ketones Urine Blood Urine Nitrite Ur Leukocyte Esterase Urine RBC Urine WBC Ur Squamous Epith Cells Urine Bacteria Hyaline Casts Influenza Type A (PCR) NEGATIVE Influenza Type B (PCR) NEGATIVE RSV RNA Qual (PCR) NEGATIVE SARS-CoV-2 RNA (RT-PCR) NEGATIVE S. pyogenes GrpA FE Negative 04/30/25 05/01/25 10:37 05:45 Anion Gap 13 Estim Creat Clear Calc 73.9 Estimated GFR > 60 Random Glucose 87 Calcium 8.6 Magnesium Total Bilirubin Direct Bilirubin AST ALT Alkaline Phosphatase Troponin I High Sens Total Protein Albumin Lipase Urine Color Yellow Urine Appearance Clear Urine pH 7.5 Ur Specific [place] <= 1.005 Urine Protein Negative Urine Glucose (UA) Negative Urine Ketones Trace Urine Blood Negative Urine Nitrite Positive H Ur Leukocyte Esterase Moderate (2+) H Urine RBC 0-2 Urine WBC 21-50 H Ur Squamous Epith Cells 3-5 Urine Bacteria 4+ Hyaline Casts 0-2 Influenza Type A (PCR) Influenza Type B (PCR) RSV RNA Qual (PCR) SARS-CoV-2 RNA (RT-PCR) S. pyogenes GrpA FE Assessment and Plan (1) Kidney stone on left side: Status: Acute (2) UTI (urinary tract infection): Status: Acute Plan 89-year-old female with a PMH significant for?rheumatoid arthritis on methotrexate, osteoporosis, and hx of breast cancer who presents to the ED with?nausea and vomiting x10 days. Pt is admitted to the hospital for treatment and further evaluation of generalized weakness in the setting of acute pyelonephritis. Generalized weakness in the setting of acute pyelonephritis UA+, CT of abd concerning for left pyelonephritis No sepsis Continue ceftriaxone, started 04/30/2025 Follow blood and urine culture PT consult Nephrolithiasis CT of abd showing 6 mm nonobstructing calculus at the lower pole of the left kidney Given pyelo and persistent N/V Nephrology consultation> conservative management at this time HTN. Better controlled BP has been elevated as high at 183/84 Given labetalol labetalol 5 mg IV Continue losartan RA Continue methotrexate Full Code DVT Prophylaxis: Lovenox Quality Stroke Does the patient have a stroke diagnosis?: No VTE Prior VTE?: No VTE Risk Level:: Medical - moderate - high VTE Device Contraindication: Treatment Not Indicated VTE Drug Contraindication: N/A - Med Ordered
[2025-05-01 13:52] VITALS: BMI 31.4
--- NOTE | 2025-05-01 14:07 | MHC.CLN ---
NUTRITION DIET=REGULAR. PATIENT WITH NAUSEA AND VOMITING X 10 DAYS PRIOR TO ADM. INCREASED NUTRITION NEEDS DUE TO STAGE II BLISTERS TO BILATERAL BUTTOCKS. ADDING ENSURE MAX BID TO PROMOTE SKIN INTEGRITY. SUPPLEMENT PROVIDES 300 KCALS, 60 G PROTEIN. FOLLOW FOR PO INTAKE AND SKIN INTEGRITY. SEE CLINICAL NUTRITION ASSESSMENT 05/01/25.
--- NOTE | 2025-05-01 14:23 | P.CDIM_ITS ---
PROVIDER RESPONSE TEXT: To clarify, the appropriate diagnosis supported by the clinical indicators: Pressure Injury Stage II bilateral buttock: Diagnosed QUERY TEXT: PHYSICIAN'S DOCUMENTATION REQUEST Date of Query: 05/01/2025 11:31 AM EDT Patient Name: Radha Cristobal Admit Date: 04/30/2025 Dear Ivone Boudreaux CLINICAL ASSISTANT PROFESSOR, A review of the medical record indicates additional documentation may be needed. Please review below and update the documentation accordingly. Clinical Indicators: Wound care notes dated 04/30/25 - Pressure injury Stage 2 bilateral buttocks. Open to air. Triad cream. + Based on the above, could you please provide further information regarding the ulcer/wound/injury: Pressure Injury Stage II bilateral buttock possible, probable, suspected, cannot rule out etc. Other specified Other (explain) Clinically unable to determine (explain) Thank you, Tiarra Neves, CCS, CDIS Use of terms such as suspected, likely, concern for, or probable (associated with a specific diagnosis that is being evaluated, monitored, or treated as if it exists) are acceptable and can be coded in the inpatient setting, when documented at the time of discharge. Please use your independent medical judgment in providing your response. THIS QUERY IS PART OF THE PERMANENT MEDICAL RECORD
[2025-05-01 15:21] VITALS: BP 114/55; PULSE 76; RESP 16; TEMP 37; O2SAT 95
[2025-05-01 19:10] VITALS: BP 128/58; PULSE 70; RESP 18; TEMP 36.4; O2SAT 96
[2025-05-02 03:11] VITALS: BP 163/68; PULSE 65; RESP 16; TEMP 36.1; O2SAT 93
[2025-05-02 07:16] VITALS: BP 128/61; PULSE 61; RESP 16; TEMP 36.3; O2SAT 95
[2025-05-02] MEDS: 0.9 % Sodium Chloride Flush 3 ML SYRINGE IVFLUSH (08:31)
--- NOTE | 2025-05-02 11:11 | P.DS_ITS ---
DS: Providers Provider Date of Service: 05/02/25 Date of admission: 04/30/25 13:18 Date of discharge: 05/02/25 Primary care physician: Corby Moore MD Consults: 04/30/25 14:24 Consult to Urology Routine Consulting Provider: [facility] [place] U[facility] Reason for consultation: Left pyelo, 6mm non-obstructing stone Attending physician on discharge: Nilton Darling Discharging clinician: Mily Mccall DS: Diagnosis Discharge Diagnosis (1) Kidney stone on left side: Status: Acute (2) UTI (urinary tract infection): Status: Acute DS: Summary Hospital Course Hospital Course: From H&P on the day of admission Pt is an 89-year-old female with a PMH significant for?rheumatoid arthritis on methotrexate, osteoporosis, and hx of breast cancer who presents to the ED with?nausea and vomiting x10 days. Reports has been unable to keep foods or fluids down during this time. Denies significant abdominal pain. No fever, but has felt chills. Occasional headache. Pt also complains of chronic sacral pain worse than baseline for the past 6 days. Overall has been feeling generally weak and unwell. Presented to the ED 2 days prior on 04/28 after a mechanical fall at home where she slipped on a rug and landed on her back. Workup at that time was negative with CT of head and C-spine, and x-ray of lumbar spine. Pt reports presents today due to continued nausea and vomiting that has not improved. Also reports mild constipation with last bowel movement 3 days ago. Denies chest pain/pressure, palpitations. Denies significant SOB or difficulty breathing. In the ED pt was hypertensive up to 183/84, vitals otherwise stable and WNL. Labs were significant for UA positive for UTI, otherwise overall grossly unremarkable and around baseline for pt no leukocytosis. Stable H&H. Sodium mildly low at 134, electrolytes otherwise WNL. Renal function baseline. Hepatic function WNL. UA positive for UTI. CT of abdomen/pelvis showed acute left pyelonephritis, and 6 mm nonobstructing calculus lower pole of left kidney, as well as large amount of stool. CXR showed mild interstitial lung edema vs acute small airway inflammatory process. EKG demonstrated normal sinus rhythm without evidence of ischemic changes. Pt was treated in the ED with IVF, ondansetron, and ceftriaxone. Pt is admitted to the hospital for treatment and further evaluation of generalized weakness in the setting of acute pyelonephritis. acute pyelonephritis UA+, CT of abd concerning for left pyelonephritis. No sepsis. Treated with IV ceftriaxone. Blood cultures returned negative. Urine culture grew >100,00 of mixed sherry suggestive of urogenital contamination. Patient's white count resolved with treatment of ceftriaxone. Overall her symptoms have improved. For nonobstructing left-sided renal stone she was seen by Urology who recommended conservative management. Nausea and vomiting have resolved, she is tolerating a regular diet. She was evaluated by Physical therapy who recommended home with family support. She will be discharged home to complete a 10 day course of oral antibiotics. constipation. seen on imaging. patient had BM. denies abdominal pain or nausea. cxr showed mild interstitial lung edema vs small airway inflammation. patient had no respiratory symptoms, no hypoxia. Can consider outpatient repeat imaging for follow up Time Attestation Discharge Coordination Time (in mins): 32 Quality: Safe Use of Opioids Does Pt have an Active Cancer Diagnosis on the Problem List?: No Quality: Stroke Does the patient have a stroke diagnosis?: No Physical Exam Vital Signs: Vital Signs: Last Vital Signs Temp 97.3 F 05/02/25 07:16 Pulse 61 05/02/25 07:16 Resp 16 05/02/25 07:16 BP 128/61 05/02/25 07:16 Pulse Ox 95 05/02/25 07:16 O2 Del Method Room Air 05/02/25 07:16 BMI result Body Mass Index 31.4 Const: General: cooperative, comfortable, no acute distress, alert and awake Nutritional Appearance: average body habitus Orientation/consciousness: patient oriented x3 Resp: Effort & Inspection: normal respiratory effort, able to speak in complete sentences, no respiratory distress and no use of accessory muscles Cardio: Rate: regular rate GI: Inspection: No distended Palpation (GI): Soft to palpation and nontender : General: Yes no CVA tenderness Back/Spine/Pelvis: Back: no CVA tenderness Neuro: General: patient oriented x3, moves all extremities and CN's II-XI intact bilaterally DS: Data Data Completed and Pending Labs on day of discharge: Preliminary micro results at discharge 04/30/25 13:13 Blood Culture - Preliminary Blood - Venous No growth after 24 hours. 04/30/25 13:04 Blood Culture - Preliminary Blood - Venous No growth after 24 hours. Discharge Plan Discharge Anticipated Discharge Date/Time: 05/02/25 11:24 Patient Disposition: Home, Self-Care Discharge Diagnosis: pyelonephritis left side kidney stone Referrals: Corby Moore MD [Primary Care Provider, Internal Medicine] - 1 Week Discharge Medications: New cefuroxime axetil 500 mg tablet 500 mg PO Q12H 8 Days Qty: 16 0RF polyethylene glycol 3350 [Miralax] 17 gram/dose powder 17 g PO DAILY PRN (Reason: constipation) Qty: 119 0RF Continued cholecalciferol (vitamin D3) 25 mcg (1,000 unit) capsule 25 mcg PO DAILY Qty: 90 1RF folic acid 1 mg tablet 1 mg PO DAILY Qty: 90 1RF cyclosporine [Restasis] 0.05 % dropperette 1 drp ophthalmic (eye) BID methotrexate sodium 2.5 mg tablet 15 mg PO WE ascorbate calcium (vitamin C) 500 mg tablet 1,000 mg PO BID acetaminophen [Tylenol] 325 mg tablet 650 mg PO Q6H PRN (Reason: Pain) calcium carbonate-vitamin D3 [Calcium 600 + D(3)] 600 mg(1,500mg) -400 unit tablet 1 tab PO BID losartan 100 mg tablet 100 mg PO DAILY Discharge Orders: Discharge Order (Routine); Ordered 05/02/25 Ordered By: Mily Mccall Activity on Discharge: As tolerated Stand Alone Forms: Patient Portal Discharge page Print Language: Croatian Care Plan Goals: see below Health Concerns: acute pyelonephritis left kidney stone constipation Plan of Treatment: Complete course of antibiotics for constipation, can use miralax daily as needed vs OTC. recommend adequate hydration and fiber intake Call to schedule outpatient follow-up with PCP as needed Assessment: see discharge summary
--- NOTE | 2025-05-02 12:26 | MHC.CM.PN ---
PT REPORTS SHE LIVES ALONE WITH A SON AND DAUGHTER LIVING CLOSE BY AND CHECKING IN DAILY SHE IS INDEPENDENT WITH CARE, USES NO DME AND DRIVES COPY OF HCP REQUESTED PCP: RAJINDER TRINH IMM DELIVERED DCP: HOME TODAY WITH NO SERVICES SON WILL TRANSPORT AROUND 1400 HOURS
[2025-05-02 13:20] VITALS: BP 136/55; PULSE 74; RESP 18; TEMP 36.6; O2SAT 95
== END 2025-05-02 13:58 | disposition home or self-care (01) | DRG 690 ==
LOC: HO.ED 13:16 → HO.EDOVER 13:42 → HO.S3 14:46
PROVIDERS: Physician Assistant Medical; Admitting Provider Student in an Organized Health Care Education/Training Program; Emergency Provider Emergency Medicine Emergency Medical Services; PCP Internal Medicine; Visit Provider Physician Assistant Medical
DX: N10 Acute pyelonephritis (principal); M06.9 Rheumatoid arthritis, unspecified; N20.0 Calculus of kidney; I10 Essential (primary) hypertension; K59.00 Constipation, unspecified; L89.322 Pressure ulcer of left buttock, stage 2; L89.312 Pressure ulcer of right buttock, stage 2; Z20.822 Contact with and (suspected) exposure to COVID-19; Z85.3 Personal history of malignant neoplasm of breast; Z79.631 Long term (current) use of antimetabolite agent; Z79.899 Other long term (current) drug therapy
CPT/HCPCS: 36415; 71045; 74177; 80048; 80076; 81001; 83690; 83735; 84484; 85025; 87040; 87086; 87637; 87651; 93005; 97161; 99285; J0696; J1650; J1920; J2405; Q9967

== ENCOUNTER → 2025-04-30 08:54 | Outpatient (BNV) | payer MEDICARE, SELFPAY | PROVIDERS: Emergency Provider Emergency Medicine Emergency Medical Services; PCP Internal Medicine; Visit Provider Radiology Diagnostic Radiology | DX: N20.0 Calculus of kidney (principal); K56.41 Fecal impaction; R07.9 Chest pain, unspecified | CPT/HCPCS: 74177 ==

== ENCOUNTER → 2025-04-30 08:54 | Outpatient (BNV) | payer MEDICARE, SELFPAY | PROVIDERS: Admitting Provider Student in an Organized Health Care Education/Training Program; Emergency Provider Emergency Medicine Emergency Medical Services; PCP Internal Medicine; Visit Provider Internal Medicine Cardiovascular Disease | DX: R07.9 Chest pain, unspecified (principal) | CPT/HCPCS: 93010 ==

== ENCOUNTER → 2025-04-30 13:18 | Outpatient (BNV) | payer MEDICARE, SELFPAY | PROVIDERS: Admitting Provider Student in an Organized Health Care Education/Training Program; Emergency Provider Emergency Medicine Emergency Medical Services; PCP Internal Medicine; Visit Provider Student in an Organized Health Care Education/Training Program | DX: N20.0 Calculus of kidney (principal); N39.0 Urinary tract infection, site not specified | CPT/HCPCS: 99223; 99232; 99239 ==

== ENCOUNTER → 2025-04-30 13:18 | Outpatient (BNV) | payer MEDICARE, SELFPAY | PROVIDERS: Admitting Provider Student in an Organized Health Care Education/Training Program; Emergency Provider Emergency Medicine Emergency Medical Services; PCP Internal Medicine; Visit Provider Urology | DX: N10 Acute pyelonephritis (principal); N39.0 Urinary tract infection, site not specified; N20.0 Calculus of kidney | CPT/HCPCS: 99222 ==

== ENCOUNTER 2025-05-07 12:23 | Outpatient (AMB) | payer MEDICARE, SELFPAY ==
--- NOTE | 2025-05-07 12:34 | A.OFFVIS_ITS ---
Vital Signs 05/07/25 12:35 Height 5 ft 5 in Weight 187 lb 9.814 oz BMI 31.2 BP 120/64 Blood Pressure Location Lt brachial Position Sitting Pulse 82 Pulse Source Pulse Oximeter Pulse Oximetry (%) 97 Oxygen Delivery Method Room Air Intake Visit Reasons: RA Intake Note: Patient presents for follow up on RA and osteoporosis today. Allergies sulfasalazine Allergy (Intermediate, Verified 05/07/25 12:44) nausea, vomiting HPI Comments Details: Patient is an 89-year-old female with hx of breast cancer s/p resection and chemo, hypertension, seropositive rheumatoid arthritis and osteoporosis here today for follow up Interval History: Patient last seen 09/07/[address] Leyva. - doing fairly well - methotrexate 15 mg weekly Today, - Fell off the bed. Did not break any bones - Joints doing well Rheumatologic History: Seropositive RA (RF, CCP) - Dx age 75 - Methotrexate since diagnosis - Tried to decrease the dose but this was met with return of symptoms 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 - Alendronate: July 2017- July 2022. - Prolia 12/2023 Current Rheumatology Medication(s): Prolia 60mg every 6 months Methotrexate 15mg weekly PO Folic acid 1mg daily PFSH Medical History Breast cancer 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 organ or systems involvement Surgical History H/O left breast biopsy Hx of cholecystectomy Hx of tonsillectomy Family History Father CVD (cardiovascular disease) Social History Household Members: None Housing: House Do you presently have visiting nurse or other home services: No Alcohol intake: current Alcohol intake frequency: holidays/special occasions only Alcohol type: wine Patient Tobacco Use Status: Never used Tobacco e-Cigarette/Vaping Use: Never Used Second Hand Smoke Exposure: No service: No Review of Systems Const Details: Review of Systems Constitutional: Denies fever, chills, weight loss ENT: Denies vision changes, eye pain or eye redness, dental caries, dry mouth GI: Denies nausea, vomiting, diarrhea, abdominal pain, change in BM Pulm: Denies SOB, JAMISON, hemoptysis, wheezing Cards: Denies chest pain, palpitations Skin: Denies Raynaud's, rash, nail changes, photosensitivity, CATALOGUE LIBRARIAN: Denies headaches, weakness, paresthesias, recurrent falls MSK: as per HPI All other systems reviewed and are unremarkable except noted above Physical Exam Vital Signs: Last Vital Signs Pulse 82 05/07/25 12:35 BP 120/64 05/07/25 12:35 Pulse Ox 97 05/07/25 12:35 Oxygen Delivery Method Room Air 05/07/25 12:35 BMI result Body Mass Index 31.2 Vital signs reviewed Physical Examination CONSTITUITIONAL Patient alert and cooperative. Well appearing and in no apparent painful distress HEENT Conjunctiva and sclera clear. No lymphadenopathy. CHEST/RESPIRATORY SYSTEM Normal respiratory effort and able to speak in complete sentences. Clear to auscultation bilaterally. No crackles, rales, rhonchi, wheezes heard. CARDIAC SYSTEM Regular rate and rhythm. S1 and S2 heard no murmurs. Radial pulses intact bilaterally MSK Hands * Right Hand: Able to make a fist. No swelling or tenderness to palpation of these joints. No deformities noted. * Left Hand: Able to make a fist. No swelling or tenderness to palpation of these joints. No deformities noted. Wrists * Right Wrist: Full ROM. 70 degrees of wrist flexion, 80 degrees of wrist extension. No swelling or TTP * Left Wrist: Full ROM. 70 degrees of wrist flexion, 80 degrees of wrist extension. No swelling or TTP Elbows * Right Elbow: Full ROM. No swelling or TTP. No TTP of the medial and lateral epicondyles * Left Elbow: Full ROM. No swelling or TTP. No TTP of the medial and lateral epicondyles Shoulders * Right shoulder: Full ROM. No swelling noted. No TTP of the AC joint, subacromial bursa or posterior shoulder * Left shoulder: Full ROM. No swelling noted. No TTP of the AC joint, subacromial bursa or posterior shoulder Knees * Right knee: Full ROM. No swelling noted. No TTP of the knee joint lie or pes anserine bursa * Left knee: Full ROM. No swelling noted. No TTP of the knee joint lie or pes anserine bursa. * Crepitations bilaterally Ankles * Right ankle: Good ankle dorsiflexion and plantar flexion. No swelling. No TTP of the ankle joint * Left ankle: Good ankle dorsiflexion and plantar flexion. No swelling. No TTP of the ankle joint Feet * Right foot: Negative squeeze test * Left foot: Negative squeeze test Tender points? * No tenderness to palpation of the bilateral trapezius, supraspinatus, anterior costochondral junctions, bilateral suboccipital muscle insertions SKIN No rashes Results Reviewed Results Reviewed: Laboratory Tests 12/18/24 04/04/25 04/30/25 11:54 12:37 09:14 WBC 10.4 RBC 3.73 L Hgb 11.8 L Hct 33.8 L Plt Count 209 D ESR 29 H Sodium Potassium Chloride Carbon Dioxide BUN Creatinine AST 26 ALT 24 C-Reactive Protein 1.03 H 05/01/25 05:45 WBC RBC Hgb Hct Plt Count ESR Sodium 137 Potassium 3.7 Chloride 102 Carbon Dioxide 26 BUN 11 Creatinine 0.58 AST ALT C-Reactive Protein Assessment & Plan Assessment & Plan (1) Seropositive rheumatoid arthritis: Comment: Seropositive RA (RF, CCP) - Dx age 75 - Methotrexate since diagnosis - Tried to decrease the dose but this was met with return of symptoms Code(s): M05.9 - Rheumatoid arthritis with rheumatoid factor, unspecified Category: Medical Plan: #Seropositive RA Patient is an 89 y.o. female with seropositive RA currently in remission on methotrexate monotherapy Plan - Methotrexate 15mg weekly - Folic acid 1mg daily - Labs 07/2025: CBC, CMP, ESR, CRP, Vit D - RTC 12/2025 - Labs before visit: CBC, CMP, ESR, CRP, Vit D (2) 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: Comment: Alendronate: July 2017- July 2022. Code(s): M81.0 - Age-related osteoporosis without current pathological fracture Category: Medical Qualifiers: 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 type: age-related Presence of current pathological fracture: without current pathological fracture Qualified Code(s): M81.0 - Age- related osteoporosis without current pathological fracture Plan: #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 Patient with osteoporosis on prolia No fractures Plan - Prolia 60mg every 6 months - Next due 07/2025 - DEXA 12/2024 (3) Encounter for methotrexate monitoring: Code(s): Z51.81 - Encounter for therapeutic drug level monitoring; Z79.631 - rodent exterminator (current) use of antimetabolite agent Plan: #Long-term Current Use of Methotrexate Discussed with patient the benefits and risks of methotrexate for managing their rheumatic condition Benefits include reduced pain, reduced mortality, maintenance of remission and reduction of flares Risks include oral ulcers, photosensitivity, hepatotoxicity, hematologic toxicity, pneumonitis, flu-like symptoms (especially day after administration), nodulosis, lymphomas ? Limit alcohol and avoid Bactrim ? Monitoring: CBC, BMP, LFTs every 3-4 months and hepatitis serologies as needed ? Methotrexate is teratogenic. If planning need to discontinue 3 months prior to conception (4) Encounter for monitoring denosumab therapy: Code(s): Z51.81 - Encounter for therapeutic drug level monitoring; Z79.620 - rodent exterminator (current) use of immunosuppressive biologic Plan: #Long-term use of Denosumab Discussed with patient the risks and benefits of denosumab (Prolia) for the m anagement of their osteoporosis Benefits include improved bone density, decreased fracture risk Risks include rapid bone loss if denosumab stopped, osteonecrosis of the jaw especially in patients with poor oral hygiene/diabetes/use of glucocorticoids/age greater than 65 years, atypical femoral fractures, injection site reactions. Mild increased risk of infections due to RANKL on T helper cells, increased risk of hypocalcemia especially in CKD patients Keep vitamin-D at least 35 ng/mL Advised to delay non emergent dental procedures to toward the end of the 6 month cycle and if they plan to stop denosumab would need to continue antiresorptive to maintain the effects of denosumab Plan I spent 36 minutes reviewing the record and labs, taking a history, examining the patient, discussing the treatment plan, ordering diagnostic work up and documenting in the medical record Coding Level of Care Code Est Pt Level 4 (16109) Complex EM visit Add On G2211 Diagnoses Seropositive rheumatoid arthritis M05.9 Age-related osteoporosis without current pathological fracture M81.0 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 type: age-related Presence of current pathological fracture: without current pathological fracture Encounter for methotrexate monitoring Z51.81; Z79.631 Encounter for monitoring denosumab therapy Z51.81; Z79.483
[2025-05-07 12:35] VITALS: BP 120/64; PULSE 82; O2SAT 97; BMI 31.2
== END 2025-05-07 13:18 | disposition home or self-care (01) ==
LOC: HO.RHE 12:23
PROVIDERS: PCP Internal Medicine; Visit Provider Student in an Organized Health Care Education/Training Program
DX: M05.79 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 organ or systems involvement (principal); M81.0 Age-related osteoporosis without current pathological fracture; Z51.81 Encounter for therapeutic drug level monitoring; Z79.631 Long term (current) use of antimetabolite agent; Z79.620 Long term (current) use of immunosuppressive biologic
CPT/HCPCS: 99214; G2211

== ENCOUNTER → 2025-05-07 12:23 | Outpatient (BNVA) | payer MEDICARE, SELFPAY | PROVIDERS: PCP Internal Medicine; Visit Provider Student in an Organized Health Care Education/Training Program | DX: M05.9 Rheumatoid arthritis with rheumatoid factor, unspecified (principal); M81.0 Age-related osteoporosis without current pathological fracture; Z85.3 Personal history of malignant neoplasm of breast; Z79.620 Long term (current) use of immunosuppressive biologic; Z79.631 Long term (current) use of antimetabolite agent; Z79.899 Other long term (current) drug therapy | CPT/HCPCS: 99212 ==

== ENCOUNTER 2025-05-16 13:54 | Outpatient (AMB) | payer MEDICARE, SELFPAY ==
--- NOTE | 2025-05-16 13:53 | A.OFFPC_ITS ---
Vital Signs 05/16/25 13:59 Height 5 ft 3.5 in Weight 186 lb 4 oz BMI 32.5 BP 146/68 H Blood Pressure Location Rt brachial Position Sitting Respiration 20 Pulse 81 Pulse Source Pulse Oximeter Temp 96.8 F Temp Source Temporal Artery Scan Pulse Oximetry (%) 95 Oxygen Delivery Method Room Air Intake Visit Reasons: Establish care; recent [facility] admission Intake Note: Visit Reason: TCM Intake Note: Patient is here for hospital discharge follow up. 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: No Agri Business Agent: Not Required per policy Accompanied by: Daughter Allergies sulfasalazine Allergy (Intermediate, Verified 05/16/25 14:22) nausea, vomiting Medication List - Last Reconciled 05/16/25 by Tessy Allan PA-C acetaminophen (Tylenol) 650 mg PO Q6H PRN ascorbate calcium (vitamin C) 1,000 mg PO BID calcium carbonate-vitamin D3 600 mg-10 mcg (400 unit) (Calcium 600 + D(3)) 1 tab PO BID cholecalciferol (vitamin D3) 25 mcg PO DAILY cyclosporine 0.05% (Restasis) 1 drp ophthalmic (eye) BID folic acid 1 mg PO DAILY losartan 100 mg PO DAILY methotrexate sodium 15 mg (6 x 2.5 mg) PO WE 90 days Tobacco use date assessed: 05/16/25 Fall risk assessment: 1 Fall in past year Last assessed Fall Risk: 05/16/25 Dental Screening Dental Screen Date: 05/16/25 Did you have a dental visit in the last 12 months?: Yes Did you have a dental problem in the last 6 months where you did not have access to dental care?: No Was dental information given to patient?: Patient has dentist HPI HPI Comments History of Present Illness Details Patient presents to the office for a TCM visit. Date of admission: 04/30/2025 Date of discharge: 05/02/2025 This is a Follow-up from admission at [facility] HPI/hospital course/discharge summary: The patient is an 89-year-old female presenting for a hospital discharge follow-up and new patient appointment. She was admitted at [facility] with a urinary tract infection and acute pyelonephritis during her hospital stay, with a CT scan revealing a 6-mm nonobstructive renal calculi in the lower pole of the left kidney. Her white blood cell count was elevated at 13,200 on April 28, which decreased to 10,400 by April 30 following treatment with IV antibiotics. The patient reports no current symptoms of the urinary tract infection and has completed a 10-day course of oral antibiotics. She was advised to follow up with urology for the renal calculi and to have a repeat chest x-ray due to mild lung changes observed during her hospital stay. The patient has a history of rheumatoid arthritis, osteoporosis, and breast cancer, for which she underwent a lumpectomy and radiation therapy in 2011, and has been in remission since. She maintains regular annual mammograms, with the last one conducted in December at [facility]. She lives independently, does not utilize visiting nurse services, and remains active despite her conditions, although she avoids excessive heat due to previous episodes of nausea and weakness. Discharged to/Current Location: Home Lives with: Alone Diagnosis: UTI, weakness, pyelonephritis Procedures performed: CXR, CT abd/pelvis with IV contrast New medications: Patient was sent home with a 10 day course of cefuroxime 500 mg b.i.d. which she completed. She was also sent home with MiraLax to be taken daily/prn which she is taking as needed. Discontinued medications: No medications were discontinued Change medications/dosing: There were no changes in her current medication or dosing Pending labs: No pending lab Pending diagnostic test: No pending diagnostic test Any Follow-up Labs required? No pending follow-up labs required Any Follow-up Diagnostic test required? Will repeat chest x-ray How are you feeling? Patient reports she feels completely normal today and back to her normal self Are you in any pain or discomfort? She denies being in any discomfort Do you have any questions about your condition or discharge instructions? She understands her condition and discharge instructions Were you able to get your medications filled? She was able to fill her medications and completely finished the antibiotics Do you have any questions about your medications? She does not have any questions about her medications Any referrals required? Urology which was placed today Were you able to schedule your follow-up appointment? yes If home health was ordered, have they contact you? Not at this time Any outpatient services, if so, are you scheduled? Not at this time Are there any additional resources like transportation you might need during her recovery? - VNA? Not at this time - WELT DRAWER? Not at this time - Meals on wheels? Not at this time Educational need/resources: Not at this time What support system do you have? Daughter PFSH Medical History Class 1 obesity with body mass index (BMI) of 32.0 to 32.9 in adult Urinary retention Hypertension UTI (urinary tract infection) History of mammogram (~01/24/25) History of breast cancer Rheumatoid arthritis Hospital discharge follow-up Establishing care with new doctor, encounter for Breast cancer 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 organ or systems involvement Surgical History H/O left breast biopsy Hx of cholecystectomy Hx of tonsillectomy Family History Father CVD (cardiovascular disease) Colon cancer Mother Colon cancer Alzheimer's dementia Social History Household Members: None Housing: House Do you presently have visiting nurse or other home services: No Alcohol intake: current Alcohol intake frequency: holidays/special occasions only Alcohol type: wine Patient Tobacco Use Status: Never used Tobacco e-Cigarette/Vaping Use: Never Used Second Hand Smoke Exposure: No service: No Current occupational status: retired Cognitive needs: No Hearing needs: No Vision needs: Yes (reading glasses) Questionnaire PHQ-9 Over the last 2 weeks, how often have you been bothered by any of the following problems? 1. Little interest or pleasure in doing things: not at all 2. Feeling down, depressed, or hopeless: not at all 3. Trouble falling or staying asleep, or sleeping too much: not at all 4. Feeling tired or having little energy: not at all 5. Poor appetite or overeating: not at all 6. Feeling bad about yourself - or that you are a failure or have let yourself or your family down: not at all 7. Trouble concentrating on things, such as reading the newspaper or watching television: not at all 8. Moving or speaking so slowly that other people could have noticed. Or the opposite - being so fidgety or restless that you have been moving around a lot more than usual: not at all 9. Thoughts that you would be better off or of hurting yourself in some way: not at all Total score: 0 Depression Screening Interpretation: Negative Depression Screening Done: Yes 30335 - PHQ-9 Billing: Yes Source: Developed by Drs. Los Raines, Sully Leavitt, Julian Harris and colleagues, with an educational warren from [employer]. Thrive Questionnaire Date Thrive assessed: 05/16/25 I am a: Patient What is your living situation today?: I have a steady place to live Within the past 12 months, did the food you bought not last and you didn't have the money to get more?: Never true Within the past 12 months, did you worry whether your food would run out before you got money to buy more?: Never true Do you have trouble paying for medicines?: No Do you have trouble getting transportation to medical appointments?: No Do you have trouble paying your heating and electricity bill?: No Do you have trouble taking care of your child, family member or friend?: No Do you have trouble with day-to-day activities such as bathing, preparing meals, shopping, managing finances, etc.?: No Are you currently unemployed and looking for a job?: No Are you interested in more education?: No Please select the resources that you would like help with: None Currently or been in a relationship where the following occur: No concerns reported THRIVE Score: 0 AUDIT C Alcohol Use Questionnaire (AUDIT-C) 1. How often do you have a drink containing alcohol?: Monthly or less 2. How many drinks containing alcohol do you have on a typical day when you are drinking?: 1 or 2 3. How often do you have six or more drinks on one occasion?: Never Total Score: 1 Score Reviewed/Action Taken: No CHELI-7 AMB Questionnaire CHELI-7 Date CHELI - 7 assessed: 05/16/25 Feeling nervous, anxious, or on edge: 0 = Not at all Not being able to stop or control worryin = Not at all Worrying too much about different things: 0 = Not at all Trouble relaxin = Not at all Being so restless that it is hard to sit still: 0 = Not at all Becoming easily annoyed or irritable: 0 = Not at all Feeling afraid as if something awful might happen: 0 = Not at all Total CHELI-7 score (0-4 normal; 5-9 mild; 10-14 moderate; 15-21 severe): 0 Source: Developed by Drs. Los Raines, Sully Leavitt, Julian Harris and colleagues, with an educational warren from [employer]. CHELI-7 Assessment Billing CHELI-7 Assessment Tool: CHELI-7 Assessment 74706 Review of Systems Const Details: - General: Reports nausea and vomiting for 10 days which has resolved, denies fever - Neurological: Reports occasional headaches which has resolved - Musculoskeletal: Reports exacerbated sacral pain which has resolved - Gastrointestinal: Denies abdominal pain - Cardiovascular: Denies chest pain, palpitations, or pressure - Respiratory: Denies shortness of breath or difficulty breathing Physical exam (Primary Care) Vital Signs: Last Vital Signs Temp 96.8 F 05/16/25 13:59 Pulse 81 05/16/25 13:59 Resp 20 05/16/25 13:59 BP 146/68 H 05/16/25 13:59 Pulse Ox 95 05/16/25 13:59 Oxygen Delivery Method Room Air 05/16/25 13:59 Vitals signs have been reviewed. Care Plan Goal for BP management: <140/90 patient to monitor blood pressure and keep a blood pressure log and bring at next appointment BMI result Body Mass Index 32.5 BMI Assessment/Plan discussion: High BMI High, discussed plan: lifestyle, weight reduction, dietary, physical activity and alcohol moderation Tobacco/Smoking Status: Tobacco use Status Tobacco use date assessed 05/16/25 05/16/25 13:58 Patient Tobacco Use Status Never used Tobacco 05/16/25 14:16 e-Cigarette/Vaping Use Never Used 05/16/25 14:16 PHQ-9: PHQ-9 Score PHQ-9: Total score 0 05/16/25 13:58 Depression Screening Interpretation: Negative Thrive Assessment: Date of Thrive Assessment Date Thrive assessed 05/16/25 05/16/25 13:58 Currently or been in a relationship where the following occur: No concerns reported Const Other: Appearance: Alert. Oriented X3. No acute distress. Head: Normal external exam. Normocephalic. Atraumatic. Eyes: Pupils are equal, round, and reactive to light. Extraocular movements intact. Conjunctiva and sclera normal. Eyelids normal. Throat: Pharynx normal. Uvula midline. Moist mucous membranes. Neck: Normal inspection. Neck supple. Full range of motion. Cardiovascular: Normal heart rate and rhythm. Heart sound normal. No murmurs noted. Pulses normal throughout. Respiratory: No respiratory distress. Painless inspiration. Breath sounds normal. No wheezes/rales/rhonchi noted. Chest nontender. No accessory muscle usage noted or decreased air movement noted. Abdomen: Soft and nontender. No distention noted. No organomegaly noted. Back: No costovertebral angle tenderness. Full range of motion noted. Skin: Skin warm and dry. Normal skin color. Normal skin turgor. No r ashes/lesions/lacerations noted. Extremities: No lower extremity edema. Extremities exhibit normal range of motion. Neuro: Oriented X 3. Normal steady gait no focal deficits noted. Results Reviewed Results Reviewed: - Labs: White blood cell count was 13,200 on 04/28, decreased to 10,400 by 04/30 - Imaging: CT scan showed 6-mm nonobstructive renal calculi in the lower pole of the left kidney - Imaging: Chest x-ray showed mild lung changes Coding Level of Care Code New Pt Level 5 (37929) Diagnoses Establishing care with new doctor, encounter for Z. Hospital discharge follow-up Z09 Age-related osteoporosis without current pathological fracture M81.0 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 type: age-related Presence of current pathological fracture: without current pathological fracture Rheumatoid arthritis M06.9 History of breast cancer Z85.3 UTI (urinary tract infection) N39.0 Acute pyelonephritis N10 Kidney stone on left side N20.0 Hypertension I10 Urinary retention R33.9 Class 1 obesity with body mass index (BMI) of 32.0 to 32.9 in adult E66.811; Z68.32 Additional Codes PHQ-9 - 09358 - PHQ-9 Billing: Yes ([id number]) CHELI-7 Assessment Billing - CHELI-7 Assessment Tool: CHELI-7 Assessment 57633 ([id number]) Time Spent (min) 60 Assessment & Plan Assessment & Plan (1) Establishing care with new doctor, encounter for: Code(s): Z76.89 - Persons encountering health services in other specified circumstances Category: Medical (2) Hospital discharge follow-up: Code(s): Z09 - Encounter for follow-up examination after completed treatment for conditions other than malignant neoplasm Category: Medical Plan: Patient was admitted at [facility] from 04/30/2025 and discharged on 05/02/2025 for pyelonephritis. Recommended that patient follow-up with PCP, Urology and have a repeat chest x-ray. Patient denies any acute complaints. Had a normal exam today. (3) 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: Comment: Alendronate: July 2017- July 2022. Code(s): M81.0 - Age-related osteoporosis without current pathological fracture Category: Medical Qualifiers: 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 type: age-related Presence of current pathological fracture: without current pathological fracture Qualified Code(s): M81.0 - Age- related osteoporosis without current pathological fracture Plan: The patient is advised to maintain activity to manage osteoporosis and prevent further bone density loss. (4) Rheumatoid arthritis: Code(s): M06.9 - Rheumatoid arthritis, unspecified Category: Medical Plan: Condition is chronic and stable continue to monitor. (5) History of breast cancer: Comment: Status post lumpectomy with radiation times 10 weeks in 2011 Code(s): Z85.3 - Personal history of malignant neoplasm of breast Category: Medical Plan: The patient is in remission from breast cancer and continues with annual mammograms for surveillance. (6) UTI (urinary tract infection): Code(s): N39.0 - Urinary tract infection, site not specified Category: Medical Plan: The patient completed a 10-day course of oral antibiotics for the urinary tract infection. (7) Acute pyelonephritis: Code(s): N10 - Acute pyelonephritis Category: Medical Plan: The patient was treated with IV antibiotics during hospitalization for acute pyelonephritis. (8) Kidney stone on left side: Code(s): N20.0 - Calculus of kidney Category: Medical Plan: The patient is advised to follow up with urology for the nonobstructive renal calculi. (9) Hypertension: Code(s): I10 - Essential (primary) hypertension Category: Medical Plan: The patient's blood pressure is monitored, and she is on losartan 100 mg for management. Patient to monitor her blood pressure at home and keep a blood pressure diary/log and bring at next visit. Condition is chronic and stable continue to monitor. (10) Urinary retention: Code(s): R33.9 - Retention of urine, unspecified Category: Medical Plan: The patient reports occasional difficulty with urination, suggestive of possible uterine prolapse, and is advised to follow up with urology. (11) Class 1 obesity with body mass index (BMI) of 32.0 to 32.9 in adult: Code(s): E66.811 - Obesity, class 1; Z68.32 - Body mass index [BMI] 32.0-32.9, adult Category: Medical Plan: Patient to improve diet and exercise regimen. Condition is chronic and stable continue to monitor. Plan Plan Patient was informed and verbally consented to the use of an ambient scribe for clinic note documentation during this visit. 1. Rheumatoid Arthritis The patient continues to manage rheumatoid arthritis with methotrexate. 2. 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 The patient is advised to maintain activity to manage osteoporosis and prevent further bone density loss. 3. History Of Breast Cancer The patient is in remission from breast cancer and continues with annual mammograms for surveillance. 4. Urinary Tract Infection The patient completed a 10-day course of oral antibiotics for the urinary tract infection. 5. Acute Pyelonephritis The patient was treated with IV antibiotics during hospitalization for acute pyelonephritis. 6. Nonobstructive Renal Calculi The patient is advised to follow up with urology for the nonobstructive renal calculi. 7. Hypertension The patient's blood pressure is monitored, and she is on losartan 100 mg for management. 8. Possible Uterine Prolapse The patient reports occasional difficulty with urination, suggestive of possible uterine prolapse, and is advised to follow up with urology. During the visit, we discussed the patient's recent hospitalization for acute pyelonephritis and urinary tract infection, and the importance of completing the prescribed antibiotics. We also reviewed the need for follow-up with urology for the renal calculi and possible uterine prolapse, as well as the plan for a repeat chest x-ray to monitor lung changes. The patient was advised to continue her current medications, including losartan for hypertension, and to maintain her regular mammogram schedule. Patient Instructions: - Complete the prescribed course of antibiotics. - Follow up with urology for renal calculi and possible uterine prolapse. - Schedule a repeat chest x-ray as advised. - Continue taking losartan for blood pressure management. - Maintain regular mammogram schedule. - Avoid excessive heat and stay hydrated.
[2025-05-16 13:59] VITALS: BP 146/68; PULSE 81; RESP 20; TEMP 36; O2SAT 95; BMI 32.5
== END 2025-05-16 14:51 | disposition home or self-care (01) ==
LOC: HO.HMCSH 13:54
PROVIDERS: PCP Internal Medicine; Visit Provider Physician Assistant Medical
DX: M81.0 Age-related osteoporosis without current pathological fracture (principal); M06.9 Rheumatoid arthritis, unspecified; N39.0 Urinary tract infection, site not specified; N10 Acute pyelonephritis; Z85.3 Personal history of malignant neoplasm of breast; N20.0 Calculus of kidney; I10 Essential (primary) hypertension; R33.9 Retention of urine, unspecified; Z09 Encounter for follow-up examination after completed treatment for conditions other than malignant neoplasm; E66.811 Obesity, class 1; Z68.32 Body mass index [BMI] 32.0-32.9, adult

== ENCOUNTER → 2025-05-16 13:54 | Outpatient (BNVA) | payer MEDICARE, SELFPAY | PROVIDERS: PCP Internal Medicine; Visit Provider Physician Assistant Medical | DX: Z76.89 Persons encountering health services in other specified circumstances (principal); Z09 Encounter for follow-up examination after completed treatment for conditions other than malignant neoplasm; M81.0 Age-related osteoporosis without current pathological fracture; M06.9 Rheumatoid arthritis, unspecified; N39.0 Urinary tract infection, site not specified; N10 Acute pyelonephritis; N20.0 Calculus of kidney; I10 Essential (primary) hypertension; R33.9 Retention of urine, unspecified; E66.811 Obesity, class 1; Z68.32 Body mass index [BMI] 32.0-32.9, adult; Z71.3 Dietary counseling and surveillance; Z85.3 Personal history of malignant neoplasm of breast | CPT/HCPCS: 96127; 99202 ==

== ENCOUNTER 2025-07-02 12:05 | Outpatient (REF) | payer MEDICARE, SELFPAY ==
[2025-07-02 13:19] LABS: Hematocrit 37.0 % (37.0-47.0); Hemoglobin 12.1 g/dl (12.0-16.0); Imm Gran Abs Auto 0.01 X10*3/uL (0.00-0.03); Imm Gran Pct Auto 0.2 % (0.0-0.4); Lymphocytes Absolute Auto 1.5 X10*3/uL (1.2-4.9); MANUAL DIFF FLAG SCAN; Mean Corpuscular HGB Conc 32.7 g/dl (31.0-35.0); Mean Corpuscular Hemoglobin 31.6 pg (27.0-33.0); Mean Corpuscular Volume 96.6 fL (80.0-98.0); NRBC Abs Auto 0.000 X10*3/uL (0.0-0.012); NRBC Pct Auto 0.0 /100WBC (0.0-0.2); PLT CLUMP 1; Red Blood Count 3.83 X10*6/uL (4.20-5.50); SCAN SMEAR FLAG 1
[2025-07-02 13:36] LABS: White Blood Count 5.9 X10*3/uL (4.8-10.8)
[2025-07-02 21:18] LABS: Alanine Aminotransferase 17 U/L (0-31); Albumin Level 4.1 g/dL (3.5-5.0); Alkaline Phosphatase 80 U/L (39-117); Anion Gap 12 (12-20); Aspartate Amino Transferase 29 U/L (5-31); Blood Urea Nitrogen 27 mg/dL (9-16); Calcium 9.5 mg/dL (8.4-10.2); Carbon Dioxide 28 mmol/L (22-29); Chloride 104 mmol/L (96-108); Estimated Glomerular Filt Rate > 60; Potassium 4.4 mmol/L (3.3-5.1); Sodium 140 mmol/L (135-145); Total Protein 7.2 g/dL (6.5-8.0)
== END 2025-07-02 12:06 | disposition home or self-care (01) ==
LOC: HO.LAB 12:05
PROVIDERS: PCP Internal Medicine; Visit Provider Student in an Organized Health Care Education/Training Program
DX: M05.9 Rheumatoid arthritis with rheumatoid factor, unspecified (principal); E55.9 Vitamin D deficiency, unspecified
CPT/HCPCS: 36415; 80053; 82306; 85025; 85652; 86140

== ENCOUNTER 2025-07-09 12:47 | Outpatient (AMB) | payer MEDICARE, SELFPAY ==
--- NOTE | 2025-07-09 13:13 | AM.OFFVISNUR ---
Intake Visit Reasons: osteoporosis/prolia injection Allergies sulfasalazine Allergy (Intermediate, Verified 05/16/25 14:22) nausea, vomiting Office Meds Prolia 60 mg/mL subcutaneous syringe Performing Provider: Radha Zhang MD Performing Location: [facility] Administered by: Silvina Adames RN on 07/09/25 13:13 Dose Route Admin Location Dispensed Lot Number Expiration Date NDC [employer] 60 mg subcut posterior right upper arm 1 mL [id number] 12/29/27 86070-446-46 [employer] Total Dispensed Waste 1 mL 0 % Comments: Radha Cristobal presents today for Prolia (Denosumab) 60 mg/mL injection for the treatment of osteoporosis. The patient has not had any recent fever or illness. The injection site to be used is without erythema, edema, and is clean, dry, and intact. Prolia administered in the right posterior upper arm. Post-injection precautions discussed. There were no apparent s/s of adverse injection site reactions. The patient tolerated the procedure well. Assessment & Plan Assessment & Plan Orders: Orders AMB Denosumab Injection Practice Supplied Today M81.0 - Age-related osteoporosis without current pathological fracture Coding
== END 2025-07-09 13:04 | disposition home or self-care (01) ==
LOC: HO.RHES 12:47
PROVIDERS: PCP Internal Medicine; Visit Provider Student in an Organized Health Care Education/Training Program
DX: M81.0 Age-related osteoporosis without current pathological fracture (principal)

== ENCOUNTER → 2025-07-09 12:47 | Outpatient (BNVA) | payer MEDICARE, SELFPAY | PROVIDERS: PCP Internal Medicine; Visit Provider Student in an Organized Health Care Education/Training Program | DX: M81.0 Age-related osteoporosis without current pathological fracture (principal) | CPT/HCPCS: 96372; J0897 ==

== ENCOUNTER 2025-10-11 11:49 | Outpatient (AMB) | payer MEDICARE, SELFPAY ==
[2025-10-11 11:52] VITALS: BP 164/72; PULSE 60; TEMP 36.9; O2SAT 96; BMI 32.6
--- NOTE | 2025-10-11 11:52 | AM.OFFWIN_ITS ---
Intake Vital Signs 10/11/25 11:52 Height 5 ft 3.5 in Weight 187 lb BMI 32.6 BP 164/72 H Blood Pressure Location Rt brachial Position Sitting Pulse 60 Pulse Source Pulse Oximeter Temp 98.4 F Temp Source Oral Pulse Oximetry (%) 96 Oxygen Delivery Method Room Air Comment High BP: unable to take her meds for a couple days Intake Visit Reasons: EP-vomiting, body weakness, upper gastric pain Intake Note: pt presents with weakness and vomiting with LT sided upper chest/upper GI pain for a couple days Patient Tobacco Use Status: Never used Tobacco Allergies sulfasalazine Allergy (Intermediate, Verified 10/11/25 12:03) nausea, vomiting Do you need a note to return to daycare/school/sports/work: No HPI HPI Comments History of Present Illness Details This is an 89 year old female with a past medical history of hypertension, UTI/pyelonephritis presenting for evaluation of acute nausea, vomiting and upper abdominal pain that she has had for the past 2 days. Patient states that she feels generally weak and continues to feel nauseaous. She denies having any fevers, chills, diarrhea, dark or bloody stools, dysuria, urinary frequency or hematuria. [facility] Medical History Class 1 obesity with body mass index (BMI) of 32.0 to 32.9 in adult Urinary retention Hypertension UTI (urinary tract infection) History of mammogram (~01/24/25) History of breast cancer Rheumatoid arthritis Hospital discharge follow-up Establishing care with new doctor, encounter for Breast cancer 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 organ or systems involvement Surgical History H/O left breast biopsy Hx of cholecystectomy Hx of tonsillectomy Family History Father CVD (cardiovascular disease) Colon cancer Mother Colon cancer Alzheimer's dementia Social History Household Members: None Housing: House Do you presently have visiting nurse or other home services: No Alcohol intake: current Alcohol intake frequency: holidays/special occasions only Alcohol type: wine Patient Tobacco Use Status: Never used Tobacco e-Cigarette/Vaping Use: Never Used Second Hand Smoke Exposure: No service: No Current occupational status: retired Cognitive needs: No Hearing needs: No Vision needs: Yes (reading glasses) Review of Systems Const All systems reviewed & are unremarkable except as noted in HPI and below Denies chills, Reports fatigue, Denies fever(s), Reports lethargy, Reports malaise and Reports poor appetite Eyes Reports no additional complaints ENT Reports no additional complaints and Denies dysphagia Card Denies chest pain Resp Denies chest congestion and Denies cough GI Reports no additional complaints, Denies melena, Denies bloating, Denies hematochezia, Denies dysphagia, Denies diarrhea, Reports nausea and Reports vomiting Reports no additional complaints, Denies dysuria, Denies urinary hesitancy and Denies urinary urgency Musc Reports no additional complaints Skin/Breast Reports system reviewed and no additional complaints, except as documented Neuro Reports no additional complaints Psych Reports no additional complaints Endo Reports no additional complaints and Reports fatigue Damian/Lymph Reports no additional complaints Aller/Immun Reports no additional complaints Physical Exam Vital Signs: Last Vital Signs Temp 98.4 F 10/11/25 11:52 Pulse 60 10/11/25 11:52 BP 164/72 H 10/11/25 11:52 Pulse Ox 96 10/11/25 11:52 Oxygen Delivery Method Room Air 10/11/25 11:52 BMI result Body Mass Index 32.6 Const General: cooperative, comfortable, well developed, alert, awake, Physically active and tired appearing; No lethargic Nutritional Appearance: average body habitus Orientation/consciousness: patient oriented x3 and No lethargic Limitations: no limitations HEENT Head: Yes normal to inspection Ears: hearing grossly abnormal bilaterally (decreased hearing subjectively) Mouth: Normal oral and palatal mucosa present and moist mucous membranes Throat: Yes posterior oropharynx normal Eyes General: appearance normal, both eyes and all related structures Chest Chest palpation & inspection: abnormal palpation of chest wall (minimal discomfort to palpation of the mid-sternal region) Resp Effort & Inspection: normal respiratory effort, able to speak in complete sentences, no audible wheezes, no cough and not tachypneic Auscultation: clear to auscultation bilaterally Cardio Rate: regular rate Rhythm: regular rhythm GI Inspection: No Abdominal wall edema and No distended Palpation (GI): Soft to palpation, nontender and no guarding General: Yes Bimanual renal exam normal bilaterally and Yes bladder normal to palpation Bimanual exam- vagina & uterus: bladder normal to palpation Neuro General: patient oriented x3 Psych Appearance: grossly normal Mental Status: mental status grossly normal Insight: Good insight present (Psych) Judgement: Good judgement present (Psych) Results Reviewed Results Reviewed: EKG reveals normal sinus rhythm at a rate of 62 beats per minute, no ischemic changes noted Assessment & Plan Assessment & Plan (1) Nausea & vomiting: Comment: Patient is evaluated with her daughter present. Patient is afebrile however exhibits general malaise. Patient has not been able to provide a urinalysis however her EKG reveals normal sinus rhythm. Patient's vital signs are reviewed and she will be discharged with Zofran to take as needed for her nausea. Hydration with clear fluids are emphasized with both the patient and her daughter; they are invited to return at anytime as needed. Code(s): R11.2 - Nausea with vomiting, unspecified Qualifiers: Vomiting type: unspecified Qualified Code(s): R11.2 - Nausea with vomiting, unspecified Plan: Zofran ODT q.6 to 8 hours p.r.n. nausea, increase clear fluids daily, return to walk-in or follow up with primary care physician as needed. Orders: Orders AMB EKG-In Office Today R07.9 - Chest pain, unspecified Medications: New ondansetron 4 mg PO Q6-8H PRN 10 tabs 0RF nausea and vomiting Coding Level of Care Code Est Pt Level 3 (09878) Diagnoses Nausea and vomiting, unspecified vomiting type R11.2 Vomiting type: unspecified Time Spent (min) 20
== END 2025-10-11 12:40 | disposition home or self-care (01) ==
PROVIDERS: PCP Internal Medicine; Visit Provider Physician Assistant
DX: R11.2 Nausea with vomiting, unspecified (principal)

== ENCOUNTER → 2025-10-11 11:49 | Outpatient (BNVA) | payer MEDICARE, SELFPAY | PROVIDERS: PCP Internal Medicine; Visit Provider Physician Assistant | DX: R11.2 Nausea with vomiting, unspecified (principal) | CPT/HCPCS: 99212 ==

== ENCOUNTER 2025-10-12 10:37 | Inpatient (IN) | payer MEDICARE, SELFPAY ==
--- NOTE | ~2025-10-12 | CT_ITS ---
CLINICAL HISTORY: flank pain, vomiting, h o colic CT abdomen and pelvis without contrast Comparison: CT/SR - CT ABDOMEN PELVIS WITH IV CONTRAST - 04/30/25 11:33 EDT Findings: 7 mm stone in the proximal left ureter with 3 mm stone just distal. The ureter is dilated greater than the renal stones. There is mild left hydroureteronephrosis. On the prior study there was dilation of the left renal pelvis and proximal ureter without a ureteral stone. There is a crossing vessel in this region which may contribute to chronic ureteropelvic junction obstruction/stenosis. There is persistent wall thickening of the left renal pelvis and proximal ureter. On the current exam there is also mild dilation of the mid/distal left ureter. No right hydronephrosis. Right renal parapelvic cysts and lower pole cyst. No right nephrolithiasis. Punctate left nephrolithiasis. No bladder stone. No consolidation at the lung bases. Mild increased subpleural reticulation Status post cholecystectomy. The other solid organs are normal. No bowel wall thickening or dilation. A normal appendix is identified. Colonic diverticulosis. No aneurysm. Moderate calcified atherosclerotic disease. No lymphadenopathy. No ascites. No acute fracture. Grade 1 anterolisthesis of L4 on L5, degenerative. Impression: Mild left hydroureteronephrosis. There are 2 stones in the left proximal ureter, however the ureter is dilated greater than the stones, likely indicating incomplete obstruction. The ureter is also dilated distal to the stones; infection or a recently passed stone may be considered. 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 Persistent wall thickening of the left renal pelvis and ureter indicating pyelitis/ureteritis, infectious/inflammatory. Correlate with urinalysis. This document has been electronically signed by: Inga Yadav MD on 10/12/2025 13:36:22
--- NOTE | ~2025-10-12 | FL_ITS ---
EXAMINATION: FL GUIDANCE ONLY HISTORY: Cystoscopy stent placement left COMPARISON: Correlation is made with an unenhanced CT of the abdomen and pelvis dated 10/12/2025. TECHNIQUE: Fluoroscopy time: 11 seconds. Cumulative Dose: 3.30 mGy. DAP: 145.47 uGym2 Images: 6. FINDINGS: Fluoroscopic spot films of the left abdomen demonstrate placement of a nephroureteral stent. FL/FL guidance in OR IMPRESSION: Fluoroscopy during procedure. Please see procedure report for additional information. Electronically signed by: Los Wagoner MD 10/15/2025 07:22 AM EST
[2025-10-12 10:47] VITALS: BP 181/81; PULSE 71; RESP 16; TEMP 36.5; O2SAT 92; BMI 31.9
[2025-10-12 11:13] LABS: MANUAL DIFF FLAG NO
[2025-10-12 11:15] LABS: Hematocrit 36.8 % (37.0-47.0); Hemoglobin 12.6 g/dl (12.0-16.0); Imm Gran Abs Auto 0.03 X10*3/uL (0.00-0.03); Imm Gran Pct Auto 0.3 % (0.0-0.4); Lymphocytes Absolute Auto 0.8 X10*3/uL (1.2-4.9); Mean Corpuscular HGB Conc 34.2 g/dl (31.0-35.0); Mean Corpuscular Hemoglobin 31.9 pg (27.0-33.0); Mean Corpuscular Volume 93.2 fL (80.0-98.0); NRBC Abs Auto 0.000 X10*3/uL (0.0-0.012); NRBC Pct Auto 0.0 /100WBC (0.0-0.2); Platelet Count 194 X10*3/uL (160-400); Red Blood Count 3.95 X10*6/uL (4.20-5.50); White Blood Count 11.8 X10*3/uL (4.8-10.8)
[2025-10-12 11:27] LABS: Alanine Aminotransferase 22 U/L (0-31); Albumin Level 4.0 g/dL (3.5-5.0); Alkaline Phosphatase 72 U/L (39-117); Anion Gap 13 (12-20); Aspartate Amino Transferase 25 U/L (5-31); Blood Urea Nitrogen 21 mg/dL (9-16); Calcium 9.1 mg/dL (8.4-10.2); Carbon Dioxide 24 mmol/L (22-29); Chloride 100 mmol/L (96-108); Creatinine Clr Calc Pharmacy 68.3; Estimated Glomerular Filt Rate > 60; Potassium 4.0 mmol/L (3.3-5.1); Sodium 133 mmol/L (135-145); Total Protein 7.1 g/dL (6.5-8.0)
--- NOTE | 2025-10-12 11:43 | ED.FEMALEGU ---
HPI - Female Genitourinary General Chief complaint: Urogenital-Female Stated complaint: vomiting, uti? Time Seen by Provider: 10/12/25 11:41 Source: patient and family Mode of arrival: ambulatory Limitations: no limitations History of Present Illness ED Provider: Lisette Catalan APRN HPI Narrative: 89-year-old female with a history of rheumatoid arthritis on methotrexate, renal colic presents the emergency room with 5 days of chills, nausea and vomiting. Went to urgent care yesterday and was given a prescription for Zofran sublingual which has helped and she was able to eat a banana and drink fluids in the last 24 hours. She has noticed over the last 2 days that she has had lower back pain and foul-smelling urine and also some difficulty with urinating at times. No dysuria, pelvic pain. She has had chills. She denies any fever. She does report generalized weakness. Related Data Home Medications ?Medication ?Instructions ?Recorded ?Confirmed acetaminophen 325 mg tablet 650 mg PO Q6H PRN Pain 08/13/20 05/16/25 (Tylenol) ascorbate calcium (vitamin C) 500 1,000 mg PO BID 08/13/20 05/16/25 mg tablet calcium 600 mg (as 1 tab PO BID 08/13/20 05/16/25 carbonate)-vitamin D3 10 mcg (400 unit) tablet (Calcium 600 + D(3)) cyclosporine 0.05 % eye drops in a 1 drp ophthalmic (eye) BID 04/30/25 05/16/25 dropperette (Restasis) Previous Rx's ?Medication ?Instructions ?Recorded folic acid 1 mg tablet 1 mg PO DAILY #90 tabs 05/07/25 cholecalciferol (vitamin D3) 25 25 mcg PO DAILY #90 caps 06/12/25 mcg (1,000 unit) capsule losartan 100 mg tablet 100 mg PO DAILY #90 tabs 08/13/25 methotrexate sodium 2.5 mg tablet 15 mg (6 x 2.5 mg) PO WE 90 days 09/30/25 #78 tabs ondansetron 4 mg disintegrating 4 mg PO Q6-8H PRN nausea and 10/11/25 tablet vomiting #10 tabs Allergies Allergy/AdvReac Type Severity Reaction Status Date / Time sulfasalazine Allergy Intermediate nausea, Verified 10/12/25 10:47 vomiting Review of Systems Review of Systems: Yes all other systems are reviewed and are negative Constitutional: Constitutional: Reports no additional constitutional complaints, Denies body ache(s), Denies chills, Denies fever(s), Denies headache(s) and Reports weakness Eyes: Eyes: Reports no additional eye complaints and Denies change in vision ENT: Reports system reviewed and no additional complaints, except as documented, Denies dizziness, Denies headache(s), Denies nasal congestion, Denies nasal discharge and Denies neck pain Cardiovascular: Cardiovascular: Reports no additional cardiovascular complaints, Denies chest pain, Denies leg edema and Denies dyspnea Respiratory: Respiratory: Reports no additional respiratory complaints, Denies cough and Denies dyspnea Gastrointestinal: Gastrointestinal: Reports no additional gastrointestinal complaints, Denies abdominal pain, Denies diarrhea, Denies nausea and Denies vomiting Genitourinary: Genitourinary: Reports no additional female genitourinary complaints, Denies dysuria, Denies pelvic pain, Denies flank pain, Denies urinary incontinence, Reports urinary hesitancy and Denies urinary urgency Musculoskeletal: Musculoskeletal: Reports no additional musculoskeletal complaints, Reports back pain, Denies arthralgias, Denies joint swelling, Denies neck pain, Denies numbness and Denies tingling Integumentary/Breasts: Skin/Breast: Reports system reviewed and no additional complaints, except as docu and Denies rash Neurologic: Reports system reviewed and no additional complaints, except as documented, Denies Abnormal speech present, Denies dizziness, Denies headache(s), Denies numbness, Denies tingling and Reports weakness PMFSH Past Medical History Attestation statement: The following information was validated with the patient. Source: old records reviewed and nursing notes reviewed Medical History Class 1 obesity with body mass index (BMI) of 32.0 to 32.9 in adult Urinary retention Hypertension UTI (urinary tract infection) History of mammogram (~01/24/25) History of breast cancer Rheumatoid arthritis Hospital discharge follow-up Establishing care with new doctor, encounter for Breast cancer 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 organ or systems involvement Surgical History H/O left breast biopsy Hx of cholecystectomy Hx of tonsillectomy Family History Family History Father CVD (cardiovascular disease) Colon cancer Mother Colon cancer Alzheimer's dementia Social History Social History Household Members: None Housing: House Do you presently have visiting nurse or other home services: No Alcohol intake: current Alcohol intake frequency: holidays/special occasions only Alcohol type: wine Patient Tobacco Use Status: Never used Tobacco Smoked in Last 30 Days: No e-Cigarette/Vaping Use: Never Used Second Hand Smoke Exposure: No Use of substances other than those prescribed or required for medical reasons: No Advance Directives: No Advance Directives Information Provided: No service: No Current occupational status: retired Cognitive needs: No Hearing needs: No Vision needs: Yes (reading glasses) Physical Exam Vital Signs: Vital Signs: Last Vital Signs Temp 99.7 F 10/12/25 13:53 Pulse 63 10/12/25 14:18 Resp 15 10/12/25 14:18 BP 175/69 H 10/12/25 14:18 Pulse Ox 95 10/12/25 14:18 O2 Del Method Room Air 10/12/25 14:18 BMI result Body Mass Index 31.9 Const: General: cooperative, healthy appearing, comfortable and no acute distress Orientation/consciousness: patient oriented x3 Limitations: no limitations HEENT: Head: Yes normal to inspection Ears: hearing grossly normal bilaterally General nose exam: Normal external nose present Face and sinus: Yes normal facial exam Mouth: Normal oral and palatal mucosa present Throat: Yes posterior oropharynx normal Eyes: General: appearance normal, both eyes and all related structures Pupils: Equal, round and reactive pupils present Neck: Neck: Yes normal visual inspection Chest: Chest palpation & inspection: normal inspection of the chest Resp: Effort & Inspection: normal respiratory effort Auscultation: clear to auscultation bilaterally Cardio: Rate: regular rate Rhythm: regular rhythm Peripheral pulses: Peripheral pulses 2+ throughout GI: Inspection: Yes normal to inspection Palpation (GI): Soft to palpation and nontender Auscultation: normal bowel sounds : General: Yes no CVA tenderness Back/Spine/Pelvis: Back: no CVA tenderness Thoracic/Lumbar Spine: thoracic and lumbar spine normal to inspection Skin: General skin exam: no rashes or lesions noted Neuro: General: patient oriented x3, no focal motor deficits and normal sensation to monofilament Cranial nerves: Yes Equal, round and reactive pupils present Cognition (Neuro): normal cognition Speech: No Abnormal speech present Gait exam (Neuro): Normal gait present Motor exam (neuro): 5/5 motor strength present throughout Extrem: General: Yes normal to inspection Course Course Course Narrative: 1230- urine is consistent with a UTI. At this time infection is suspected. Antibiotics ordered. Medications Administered Discontinued Medications Generic Name Dose Route Start Last Admin Trade Name Shawn PRN Reason Stop Dose Admin Acetaminophen 975 mg 10/12/25 11:52 10/12/25 11:58 Acetaminophen 325 Mg Tablet PO 10/12/25 11:53 975 mg ONCE ONE Administration Sodium Chloride 1,000 mls @ 999 mls/hr 10/12/25 12:34 10/12/25 13:12 Ns IV 10/12/25 13:34 999 mls/hr .Q1H1M STA Administration Ceftriaxone Sodium 2 gm/ 50 mls @ 100 mls/hr 10/12/25 12:34 10/12/25 13:58 Sodium Chloride IV 10/12/25 13:03 Infused ONCE ONE Infusion Medical Decision Making Medical Decision Making [facility] Narrative: 89-year-old female with a history of rheumatoid arthritis on methotrexate, renal colic presents the emergency room with 5 days of chills, nausea and vomiting. Went to urgent care yesterday and was given a prescription for Zofran sublingual which has helped and she was able to eat a banana and drink fluids in the last 24 hours. She has noticed over the last 2 days that she has had lower back pain and foul-smelling urine and also some difficulty with urinating at times. No dysuria, pelvic pain. She has had chills. She denies any fever. She does report generalized weakness. abdomen soft nontender. No CVA tenderness. Vitals are stable will obtain labs, UA, CT Differential Diagnosis Differential Diagnoses: The differential diagnosis associated with the presentation includes Viral syndrome, influenza, renal colic, pyelonephritis, UTI Admission/Observation Consideration of admission/observation: Escalation of care including admission/observation considered UTI with renal colic will need admission for IV fluids and antibiotic Consult Healthcare Provider Management of the patient was discussed with: Hospitalist and Instrumentation Designer I consulted both Urology and hospitalist and hospitalist will admit the patient with Urology following Lab Data MDM Lab Attestation statement: I reviewed the patient's lab results. 10/12/25 11:08 10/12/25 11:08 Labs: Lab Results 10/12/25 10/12/25 Range/Units 11:08 12:09 WBC 11.8 H (4.8-10.8) X10*3/uL RBC 3.95 L (4.20-5.50) X10*6/uL Hgb 12.6 (12.0-16.0) g/dl Hct 36.8 L (37.0-47.0) % MCV 93.2 (80.0-98.0) fL MCH 31.9 (27.0-33.0) pg MCHC 34.2 (31.0-35.0) g/dl RDW 14.2 (11.0-16.0) % Plt Count 194 (160-400) X10*3/uL MPV 9.9 (9.4-12.3) fL Immature Gran % (Auto) 0.3 (0.0-0.4) % Neut % (Auto) 88.1 H (45-73) % Lymph % (Auto) 7.1 L (20-40) % [place] % (Auto) 4.1 (2-11) % Eos % (Auto) 0.1 (0-4) % Baso % (Auto) 0.3 (0-2) % Lymph # (Auto) 0.8 L (1.2-4.9) X10*3/uL [place] # (Auto) 0.5 (0.1-1.2) X10*3/uL Eos # (Auto) 0.0 (0.0-0.4) X10*3/uL Baso # (Auto) 0.0 (0.0-0.2) X10*3/uL Abs Immat Gran (auto) 0.03 (0.00-0.03) X10*3/uL Absolute Neuts (auto) 10.4 H (2.0-8.3) x10*3/uL Absolute Nucleated RBC 0.000 (0.0-0.012) X10*3/uL Nucleated RBC % (auto) 0.0 (0.0-0.2) /100WBC Sodium 133 L (135-145) mmol/L Potassium 4.0 (3.3-5.1) mmol/L Chloride 100 (96-108) mmol/L Carbon Dioxide 24 (22-29) mmol/L Anion Gap 13 (12-20) BUN 21 H (9-16) mg/dL Creatinine 0.61 (0.5-1.4) mg/dL Estim Creat Clear Calc 68.3 Estimated GFR > 60 Random Glucose 130 H (60-115) mg/dL Lactic Acid 1.3 (0.5-2.0) mmol/L Calcium 9.1 (8.4-10.2) mg/dL Total Bilirubin 1.4 H (0.0-1.0) mg/dL AST 25 (5-31) U/L ALT 22 (0-31) U/L Alkaline Phosphatase 72 (39-117) U/L Total Protein 7.1 (6.5-8.0) g/dL Albumin 4.0 (3.5-5.0) g/dL Urine Color Yellow Urine Appearance Cloudy Urine pH 6.5 (5.0-9.0) Ur Specific [place] 1.015 (1.005-1.025) Urine Protein 30 (1+) H (Neg-Trace) mg/dL Urine Glucose (UA) Negative (Negative) mg/dL Urine Ketones Trace (Negative) mg/dL Urine Blood Small (1+) H (Negative) Urine Nitrite Positive H (Negative) Ur Leukocyte Esterase Moderate (2+) H (Negative) Urine RBC 3-5 H (0-2) /HPF Urine WBC >50 H (0-5) /HPF Urine WBC Clumps Present Ur Squamous Epith Cells 0-2 (0-2) /HPF Urine Bacteria 4+ (None Seen) Hyaline Casts 0-2 (0-2) /LPF Independent Interpretation I performed an independent interpretation of an: CT Scan Interpretation: I independently viewed the CT scan agree with the radiology report Radiology Impression Discussion of test interpretation with radiology: I have reviewed the radiologist's reading. Radiologist Impression: [address] [address] [address] Scan Report Signed Patient: Radha Cristobal MR#: [id number] : 1935 Acct:[id number] Age/Sex: 89 / F ADM Date: 10/12/25 Loc: HO.ED Attending Dr: Ordering Physician: Lisette Catalan NP Date of Service: 10/12/25 Procedure(s): CT abdomen pelvis wo IV con Accession Number(s): [id number] cc: Lisette Catalan NP; Corby Moore MD~ Report Number: [id number]: Total DLP = 683.00 mGy-cm Reason for Exam: flank pain, vomiting, h/o colic CLINICAL HISTORY: flank pain, vomiting, h o colic CT abdomen and pelvis without contrast Comparison: CT/SR - CT ABDOMEN PELVIS WITH IV CONTRAST - 04/30/25 11:33 EDT Findings: 7 mm stone in the proximal left ureter with 3 mm stone just distal. The ureter is dilated greater than the renal stones. There is mild left hydroureteronephrosis. On the prior study there was dilation of the left renal pelvis and proximal ureter without a ureteral stone. There is a crossing vessel in this region which may contribute to chronic ureteropelvic junction obstruction/stenosis. There is persistent wall thickening of the left renal pelvis and proximal ureter. On the current exam there is also mild dilation of the mid/distal left ureter. No right hydronephrosis. Right renal parapelvic cysts and lower pole cyst. No right nephrolithiasis. Punctate left nephrolithiasis. No bladder stone. No consolidation at the lung bases. Mild increased subpleural reticulation Status post cholecystectomy. The other solid organs are normal. No bowel wall thickening or dilation. A normal appendix is identified. Colonic diverticulosis. No aneurysm. Moderate calcified atherosclerotic disease. No lymphadenopathy. No ascites. No acute fracture. Grade 1 anterolisthesis of L4 on L5, degenerative. Impression: Mild left hydroureteronephrosis. There are 2 stones in the left proximal ureter, however the ureter is dilated greater than the stones, likely indicating incomplete obstruction. The ureter is also dilated distal to the stones; infection or a recently passed stone may be considered. 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 Persistent wall thickening of the left renal pelvis and ureter indicating pyelitis/ureteritis, infectious/inflammatory. Correlate with urinalysis. This document has been electronically signed by: Inga Yadav MD on 10/12/2025 13:36:22 Independent Historian Clinical information obtained from an independent historian. History obtained from or confirmed by: Other (son tucker) Critical Care Time Critical Care Time Critical Care Time: Yes Total Critical Care Time: 60 Attestation: Time includes: direct patient care, patient reassessment, coordination of patient care, interpretation of data, review of patient's medical records, medical consultation and documentation of patient care. Discharge Plan Discharge Clinical Impression: UTI (urinary tract infection), Renal colic Patient Disposition: Admitted As Inpatient
[2025-10-12 12:30] LABS: Appearance Urine Cloudy; Glucose Urine UA Negative (Negative); PH 6.5 (5.0-9.0); Specific Gravity - Urine 1.015 (1.005-1.025); UMIC TRIGGER UACC YES
[2025-10-12 12:43] LABS: UACC Culture Trigger YES
[2025-10-12 13:11] VITALS: BP 170/75; PULSE 64; RESP 18; TEMP 36.9; O2SAT 96
[2025-10-12 13:53] VITALS: TEMP 37.6
[2025-10-12 14:18] VITALS: BP 175/69; PULSE 63; RESP 15; O2SAT 95
--- NOTE | 2025-10-12 14:36 | PM.IMHP ---
History of Present Illness Date of Service: 10/12/25 Attending physician on admission: Juventino Tyson Chief Complaint: N/V/urinary symptoms This is an 89-year-old female who presents to the emergency department today with nausea and vomiting. Patient reports symptoms began on Tuesday or Tuesday. She has had multiple episodes of nausea and vomiting. She noticed foul odor her urine and increased urinary frequency which is unusual for her. She reports chills stating that she has been unable to keep warm. She has not taken her temperature. Yesterday she went care but she was unable to pee for urine sample. She reports back pain but denies abdominal pain. She has been unable to tolerate po and was actively dry heaving during my evaluation. Today in the emergency department she had urinalysis which was consistent with UTI. CT scan of the abdomen and pelvis showed kidney stones with mild left hydroureteronephrosis. She was treated with IV ceftriaxone. Review of Systems Review of Systems: Yes all other systems are reviewed and are negative Constitutional: Constitutional: Reports chills and Denies fever(s) Cardiovascular: Cardiovascular: Denies chest pain and Denies dyspnea Respiratory: Respiratory: Denies cough and Denies dyspnea Gastrointestinal: Gastrointestinal: Denies abdominal pain, Reports nausea and Reports vomiting Genitourinary: Comments: urinary frequency PMFSH Medical History Class 1 obesity with body mass index (BMI) of 32.0 to 32.9 in adult Urinary retention Hypertension UTI (urinary tract infection) History of mammogram (~01/24/25) History of breast cancer Rheumatoid arthritis Hospital discharge follow-up Establishing care with new doctor, encounter for Breast cancer 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 organ or systems involvement Family History Father CVD (cardiovascular disease) Colon cancer Mother Colon cancer Alzheimer's dementia Surgical History H/O left breast biopsy Hx of cholecystectomy Hx of tonsillectomy Social History Household Members: None Housing: House Do you presently have visiting nurse or other home services: No Alcohol intake: current Alcohol intake frequency: holidays/special occasions only Alcohol type: wine Patient Tobacco Use Status: Never used Tobacco Smoked in Last 30 Days: No e-Cigarette/Vaping Use: Never Used Second Hand Smoke Exposure: No Use of substances other than those prescribed or required for medical reasons: No Currently Displaying Signs/Symptoms of Drug Intoxication Withdrawal: No Have you been hit, kicked, punched, or otherwise hurt by someone within the past year? If so, by whom?: No Do you feel safe in your current relationship?: No Current Relationship Is there a partner from a previous relationship who is making you feel unsafe now?: No Are you made to feel afraid or neglected: No Advance Directives: No Advance Directives Information Provided: No Do you have a plan to hurt others: No Plan Recently lost weight without trying: No Nutrition Risks: No Nutritional Risk Patient : No : No Poor oral hygiene: No service: No Current occupational status: retired Cognitive needs: No Hearing needs: No Vision needs: Yes (reading glasses) Meds Allergies Allergy/AdvReac Type Severity Reaction Status Date / Time sulfasalazine Allergy Intermediate nausea, Verified 10/12/25 10:47 vomiting Home Medications ?Medication ?Instructions ?Recorded ?Confirmed ?Last Taken ?Type acetaminophen 325 mg tablet 650 mg PO Q6H PRN Pain 08/13/20 10/12/25 04/30/25 History (Tylenol) ascorbate calcium (vitamin C) 500 1,000 mg PO BID 08/13/20 10/12/25 04/29/25 History mg tablet cyclosporine 0.05 % eye drops in a 1 drp ophthalmic (eye) BID 04/30/25 10/12/25 04/29/25 History dropperette (Restasis) methotrexate sodium 2.5 mg tablet 15 mg PO WE@0900 10/12/25 10/12/25 Unknown History ondansetron 4 mg disintegrating 4 mg PO Q6H PRN nausea and vomiting 10/12/25 10/12/25 Unknown History tablet Physical Exam Vital Signs and Narrative: Vital Signs: Last Vital Signs Temp 99.7 F 10/12/25 13:53 Pulse 63 10/12/25 14:18 Resp 15 10/12/25 14:18 BP 175/69 H 10/12/25 14:18 Pulse Ox 95 10/12/25 14:18 O2 Del Method Room Air 12/13/25 14:18 BMI result Body Mass Index 31.9 Const: Other: uncomfortable, dry heaving General: alert and awake Nutritional Appearance: overweight Orientation/consciousness: patient oriented x3 Resp: Effort & Inspection: normal respiratory effort, able to speak in complete sentences, no respiratory distress and no use of accessory muscles Cardio: Rate: regular rate GI: Inspection: No distended Palpation (GI): Soft to palpation : General: Yes no CVA tenderness Back/Spine/Pelvis: Back: no CVA tenderness Neuro: General: patient oriented x3, moves all extremities and CN's II-XI intact bilaterally Extrem: General: No pedal edema Results Labs 10/13/25 05:44 10/13/25 05:44 Labs: Laboratory Results - last 24 hr 10/12/25 10/12/25 11:08 12:09 MCV 93.2 MCH 31.9 MCHC 34.2 RDW 14.2 Plt Count 194 MPV 9.9 Immature Gran % (Auto) 0.3 Neut % (Auto) 88.1 H Lymph % (Auto) 7.1 L [place] % (Auto) 4.1 Eos % (Auto) 0.1 Baso % (Auto) 0.3 Lymph # (Auto) 0.8 L [place] # (Auto) 0.5 Eos # (Auto) 0.0 Baso # (Auto) 0.0 Abs Immat Gran (auto) 0.03 Absolute Neuts (auto) 10.4 H Absolute Nucleated RBC 0.000 Nucleated RBC % (auto) 0.0 Anion Gap 13 Estim Creat Clear Calc 68.3 Estimated GFR > 60 Random Glucose 130 H Lactic Acid 1.3 Calcium 9.1 Total Bilirubin 1.4 H AST 25 ALT 22 Alkaline Phosphatase 72 Total Protein 7.1 Albumin 4.0 Urine Color Yellow Urine Appearance Cloudy Urine pH 6.5 Ur Specific [place] 1.015 Urine Protein 30 (1+) H Urine Glucose (UA) Negative Urine Ketones Trace Urine Blood Small (1+) H Urine Nitrite Positive H Ur Leukocyte Esterase Moderate (2+) H Urine RBC 3-5 H Urine WBC >50 H Urine WBC Clumps Present Ur Squamous Epith Cells 0-2 Urine Bacteria 4+ Hyaline Casts 0-2 Assessment and Plan (1) Kidney stone on left side: Status: Acute (2) UTI (urinary tract infection): Status: Acute Plan This is an 89-year-old female with a PMH significant for?rheumatoid arthritis on methotrexate, osteoporosis, and hx of breast cancer who presents to the ED with?nausea and vomiting found to have UTI and kidney stones Acute UTI with hydroureteronephrosis and left ureteral stones with incomplete obstruction No sepsis continue IV ceftriaxone,s tarted 10/12 follow urine culture, blood cultures urology consult N/V likely due to above symptomatic support HTN uncontrolled. likely due to N/V. follow closely Continue losartan RA receives methotrexate on wednesdays, hold for now Full Code DVT Prophylaxis: Lovenox Given that pt has been unable to sufficiently tolerate p.o. intake , generalized weakness , significant comorbidities, advanced age, and lives alone, she is at significant risk for complications and further deconditioning without admission to the hospital for at least 2 overnight for treatment of UTI with IV antibiotics, supportive care. Quality Stroke Does the patient have a stroke diagnosis?: No VTE Prior VTE?: No VTE Risk Level:: Medical - moderate - high VTE Device Contraindication: Treatment Not Indicated VTE Drug Contraindication: N/A - Med Ordered
[2025-10-12] MEDS: Lactated Ringers 1,000 ML 80 ML IVCONT (15:29)
--- NOTE | 2025-10-12 15:47 | PHA.MEDREC ---
Pharmacy Consult ? Medication Reconciliation Pharmacy has completed the medication reconciliation. Spoke to patient at bedside, unable to name medications but confirmed based on claim list. She noted that the only thing she has had is her Restasis which her daughter should be able to bring in for her.
--- NOTE | 2025-10-12 16:19 | HO.NURTONUR ---
PER RN: Admit: UTI, kidney stone, IV ABX, weakness Alert and mostly oriented, some confusion Generally weak, purewick for urine IV: 22G in right AC Meds: LR at 80 mL/hr Meds whole with water PER MD: This is an 89-year-old female who presents to the emergency department today with nausea and vomiting. Patient reports symptoms began on Tuesday or Tuesday. She has had multiple episodes of nausea and vomiting. She noticed foul odor her urine and increased urinary frequency which is unusual for her. She reports chills stating that she has been unable to keep warm. She has not taken her temperature. Yesterday she went care but she was unable to pee for urine sample. She reports back pain but denies abdominal pain. She has been unable to tolerate po and was actively dry heaving during my evaluation. Today in the emergency department she had urinalysis which was consistent with UTI. CT scan of the abdomen and pelvis showed kidney stones with mild left hydroureteronephrosis. She was treated with IV ceftriaxone.
[2025-10-12 17:34] VITALS: BP 169/74; PULSE 60; RESP 18; TEMP 37; O2SAT 96
[2025-10-12 20:26] VITALS: BP 145/82; PULSE 71; RESP 18; TEMP 36.6; O2SAT 93
[2025-10-12 20:38] VITALS: BMI 32.5
--- NOTE | 2025-10-12 21:31 | PC.NURSE ---
Restasis eye drops from home, processed by pharmacy, this RN loaded the medication in patients specific bin in [employer]. See chart for belonging list and patients medication storage record.
[2025-10-13 03:10] VITALS: BP 167/62; PULSE 54; RESP 16; TEMP 36.5; O2SAT 94
[2025-10-13 03:30] VITALS: BP 168/62
[2025-10-13] MEDS: Lactated Ringers 1,000 ML 80 ML IVCONT ×2 (04:03→16:33)
[2025-10-13 04:42] VITALS: BP 118/64
--- NOTE | 2025-10-13 04:45 | PC.NURSE ---
At 03:30 pt had manual BP of 168/62. This RN spoke with pt and discovered she has not taken her losartan for 3 days d/t N/V. HOSPICE AIDE Leeroy notified via [place] text. One time dose of IV hydralazine ordered and administered. Manual BP recheck at 04:43 was 118/64.
[2025-10-13 06:13] LABS: MANUAL DIFF FLAG NO
[2025-10-13 06:15] LABS: Hematocrit 36.6 % (37.0-47.0); Hemoglobin 12.3 g/dl (12.0-16.0); Imm Gran Abs Auto 0.03 X10*3/uL (0.00-0.03); Imm Gran Pct Auto 0.3 % (0.0-0.4); Lymphocytes Absolute Auto 1.0 X10*3/uL (1.2-4.9); Mean Corpuscular HGB Conc 33.6 g/dl (31.0-35.0); Mean Corpuscular Hemoglobin 31.1 pg (27.0-33.0); Mean Corpuscular Volume 92.4 fL (80.0-98.0); NRBC Abs Auto 0.000 X10*3/uL (0.0-0.012); NRBC Pct Auto 0.0 /100WBC (0.0-0.2); Platelet Count 196 X10*3/uL (160-400); Red Blood Count 3.96 X10*6/uL (4.20-5.50); White Blood Count 9.1 X10*3/uL (4.8-10.8)
[2025-10-13 06:29] LABS: Anion Gap 13 (12-20); Blood Urea Nitrogen 13 mg/dL (9-16); Calcium 8.5 mg/dL (8.4-10.2); Carbon Dioxide 25 mmol/L (22-29); Chloride 102 mmol/L (96-108); Creatinine Clr Calc Pharmacy 84.1; Estimated Glomerular Filt Rate > 60; Potassium 3.5 mmol/L (3.3-5.1); Sodium 136 mmol/L (135-145)
[2025-10-13 07:27] VITALS: BP 139/72; PULSE 60; RESP 16; TEMP 36.2; O2SAT 96
[2025-10-13] MEDS: 0.9 % Sodium Chloride Flush 3 ML SYRINGE IVFLUSH (08:24)
--- NOTE | 2025-10-13 11:44 | PM.UROCN ---
History of Present Illness Consult details Consult date: 10/13/25 Narrative: CC: Kidney stone, left hydro and UTI 89-year-old female Presents through emergency room with persistent nausea and vomiting. Symptoms proximally 3 days of duration. Noted odorous urine. Increased baseline temperature and increased urinary frequency which was abnormal for her Evaluated by urgent care but unable to produce urine sample Laboratories on admission - UA positive nitrite, positive leukocyte Admitted to hospital and initiated IV ceftriaxone Imaging - CT - 7 mm stone in the proximal left ureter with 3 mm stone just distal. The ureter is dilated greater than the renal stones. There is mild left hydroureteronephrosis Recommend antibiotics with conservative therapy For intervention with cystoscopy, stent placement Review of Systems Constitutional: Constitutional: Reports as per HPI and Reports no additional constitutional complaints Cardiovascular: Cardiovascular: Reports as per HPI and Reports no additional cardiovascular complaints Respiratory: Respiratory: Reports as per HPI and Reports no additional respiratory complaints Gastrointestinal: Gastrointestinal: Reports as per HPI and Reports no additional gastrointestinal complaints Genitourinary: Genitourinary: Reports as per HPI Musculoskeletal: Musculoskeletal: Reports no additional musculoskeletal complaints and Reports as per HPI Neurologic: Reports system reviewed and no additional complaints, except as documented and Reports as per HPI [facility] Past Medical History Medical History Class 1 obesity with body mass index (BMI) of 32.0 to 32.9 in adult Urinary retention Hypertension UTI (urinary tract infection) History of mammogram (~01/24/25) History of breast cancer Rheumatoid arthritis Hospital discharge follow-up Establishing care with new doctor, encounter for Breast cancer 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 organ or systems involvement Family History Family History Father CVD (cardiovascular disease) Colon cancer Mother Colon cancer Alzheimer's dementia Surgical History Surgical History H/O left breast biopsy Hx of cholecystectomy Hx of tonsillectomy Social History Social History Household Members: None Housing: House Do you presently have visiting nurse or other home services: No Alcohol intake: current Alcohol intake frequency: holidays/special occasions only Alcohol type: wine Patient Tobacco Use Status: Never used Tobacco Smoked in Last 30 Days: No e-Cigarette/Vaping Use: Never Used Second Hand Smoke Exposure: No Use of substances other than those prescribed or required for medical reasons: No Currently Displaying Signs/Symptoms of Drug Intoxication Withdrawal: No Have you been hit, kicked, punched, or otherwise hurt by someone within the past year? If so, by whom?: No Do you feel safe in your current relationship?: No Current Relationship Is there a partner from a previous relationship who is making you feel unsafe now?: No Are you made to feel afraid or neglected: No Advance Directives: No Advance Directives Information Provided: No Do you have a plan to hurt others: No Plan Recently lost weight without trying: No Nutrition Risks: No Nutritional Risk Patient : No : No Poor oral hygiene: No service: No Current occupational status: retired Cognitive needs: No Hearing needs: No Vision needs: Yes (reading glasses) Meds Allergies Allergy/AdvReac Type Severity Reaction Status Date / Time sulfasalazine Allergy Intermediate nausea, Verified 10/12/25 10:47 vomiting Active Medications: Current Medications Acetaminophen (Acetaminophen 325 Mg Tablet) 650 mg PO Q6H PRN PRN Reason: Pain, Mild 1-3,fever,headache Last Admin: 10/13/25 03:37 Dose: 650 mg Calcium Carbonate (Calcium Carbonate 750 Mg Tab.Chew) 750 mg PO Q4H PRN PRN Reason: Heartburn Enoxaparin Sodium (Enoxaparin Sodium 40 Mg/0.4 Ml Syringe) 40 mg SUBCUT Q24H [facility] Last Admin: 10/12/25 15:32 Dose: 40 mg Lactated Ringer's (Lr) 1,000 mls @ 80 mls/hr IVCONT .[id number] JOSE Last Admin: 10/13/25 04:03 Dose: 80 mls/hr Ceftriaxone Sodium 1 gm/ (Sodium Chloride) 50 mls @ 100 mls/hr IV Q24H JOSE Losartan Potassium (Losartan Potassium 50 Mg Tablet) 100 mg PO DAILY [facility]; Protocol Last Admin: 10/13/25 08:24 Dose: 100 mg Magnesium Hydroxide (Milk Of Magnesia 30 Ml Oral.Susp) 30 ml PO DAILY PRN PRN Reason: Constipation Melatonin (Melatonin 3 Mg Tablet) 6 mg PO BEDTIME PRN PRN Reason: Insomnia Pt Own (Cyclosporine [Restasis] 0.05 % Dropperette) 1 drop EYE-BOTH BID [facility] Last Admin: 10/13/25 08:24 Dose: 1 drop Ondansetron HCl (Ondansetron Hcl 4 Mg/2 Ml Vial) 4 mg IVPUSH Q8H PRN PRN Reason: Nausea and Vomiting Sodium Chloride (0.9 % Sodium Chloride Flush 3 Ml Syringe) 3 ml IVFLUSH QSHIFT [facility] Last Admin: 10/13/25 08:24 Dose: 3 ml Home Medications ?Medication ?Instructions ?Recorded ?Confirmed ?Last Taken ?Type acetaminophen 325 mg tablet 650 mg PO Q6H PRN Pain 08/13/20 10/12/25 04/30/25 History (Tylenol) ascorbate calcium (vitamin C) 500 1,000 mg PO BID 08/13/20 10/12/25 04/29/25 History mg tablet cyclosporine 0.05 % eye drops in a 1 drp ophthalmic (eye) BID 04/30/25 10/12/25 04/29/25 History dropperette (Restasis) methotrexate sodium 2.5 mg tablet 15 mg PO WE@0900 10/12/25 10/12/25 Unknown History ondansetron 4 mg disintegrating 4 mg PO Q6H PRN nausea and vomiting 10/12/25 10/12/25 Unknown History tablet Physical Exam Vital Signs: Vital Signs: Last Vital Signs Temp 97.1 F 10/13/25 07:27 Pulse 60 10/13/25 07:27 Resp 16 10/13/25 07:27 BP 139/72 10/13/25 07:27 Pulse Ox 96 10/13/25 07:27 O2 Del Method Room Air 10/13/25 07:27 BMI result Body Mass Index 32.5 Const: General: cooperative, healthy appearing, comfortable and no acute distress Orientation/consciousness: patient oriented x3 HEENT: Face and sinus: Yes normal facial exam Mouth: moist mucous membranes Neck: Neck: Yes normal visual inspection, Yes full ROM and Yes trachea midline Chest: Chest palpation & inspection: normal inspection of the chest Resp: Effort & Inspection: normal respiratory effort, able to speak in complete sentences and no respiratory distress GI: Inspection: Yes normal to inspection Back/Spine/Pelvis: Cervical Spine: normal cervical lordosis Thoracic/Lumbar Spine: thoracic and lumbar spine normal to inspection Skin: General skin exam: no rashes or lesions noted Neuro: General: patient oriented x3, tone normal and moves all extremities Extrem: General: Yes normal to inspection and Yes capillary refill normal Results Labs 10/13/25 05:44 10/13/25 05:44 Labs: Abnormal lab results 10/12/25 10/13/25 Range/Units 12:09 05:44 RBC 3.96 L (4.20-5.50) X10*6/uL Hct 36.6 L (37.0-47.0) % Neut % (Auto) 83.6 H (45-73) % Lymph % (Auto) 10.5 L (20-40) % Lymph # (Auto) 1.0 L (1.2-4.9) X10*3/uL Urine Protein 30 (1+) H (Neg-Trace) mg/dL Urine Blood Small (1+) H (Negative) Urine Nitrite Positive H (Negative) Ur Leukocyte Esterase Moderate (2+) H (Negative) Urine RBC 3-5 H (0-2) /HPF Urine WBC >50 H (0-5) /HPF Short CBC 10/13/25 Range/Units 05:44 WBC 9.1 (4.8-10.8) X10*3/uL Hgb 12.3 (12.0-16.0) g/dl Hct 36.6 L (37.0-47.0) % Plt Count 196 (160-400) X10*3/uL BMP 10/13/25 05:44 Sodium 136 Potassium 3.5 Chloride 102 Carbon Dioxide 25 BUN 13 Creatinine 0.50 Calcium 8.5 D Urine 10/12/25 Range/Units 12:09 Urine Color Yellow Urine Appearance Cloudy Urine pH 6.5 (5.0-9.0) Ur Specific [place] 1.015 (1.005-1.025) Urine Protein 30 (1+) H (Neg-Trace) mg/dL Urine Glucose (UA) Negative (Negative) mg/dL All other labs normal. Assessment and Plan (1) Kidney stone on left side: Status: Acute (2) Hydronephrosis: Status: Acute Plan Risks, benefits and alternatives to therapy were discussed. These include but are not limited to infection, bleeding, damage to local organs and tissues, need for further interventions. Anesthetic risks regarding cardiac arrhythmia, blood clots, and potential mortality were discussed. The patient understands the typical recovery time and the outpatient nature of the procedure. After consideration of these risks the patient gives full informed consent and they wish to move ahead with the procedure. - cystoscopy, left retrograde, left stent placement Procedures Date of Service Date of Service: 10/13/25
--- NOTE | 2025-10-13 13:18 | P.PNIM_ITS ---
Subjective Subjective Date of Service: 10/13/25 Interval History: No acute issues overnight. No pain. Tolerating diet. Review of Systems Denies chest pain Denies shortness of breath Denies nausea vomiting diarrhea Denies fever chills Physical Exam 2 Vital Signs: Vital Signs: Last Vital Signs Temp 97.1 F 10/13/25 07:27 Pulse 60 10/13/25 07:27 Resp 16 10/13/25 07:27 BP 139/72 10/13/25 07:27 Pulse Ox 96 10/13/25 07:27 O2 Del Method Room Air 10/13/25 07:27 BMI result Body Mass Index 32.5 Const: Other: Awake alert no acute distress Resp: Other: Clear to auscultation bilaterally no rales rhonchi or wheezes Cardio: Other: No S4; positive S1-S2; no S3 murmurs rubs or gallops GI: Other: Soft nontender nondistended normoactive bowel sounds Extrem: Other: No edema bilaterally Objective Data Active Medications Acetaminophen (Acetaminophen 325 Mg Tablet) 650 mg PO Q6H PRN PRN Reason: Pain, Mild 1-3,fever,headache Last Admin: 10/13/25 03:37 Dose: 650 mg Documented By: EDY Calcium Carbonate (Calcium Carbonate 750 Mg Tab.Chew) 750 mg PO Q4H PRN PRN Reason: Heartburn Enoxaparin Sodium (Enoxaparin Sodium 40 Mg/0.4 Ml Syringe) 40 mg SUBCUT Q24H [facility] Last Admin: 10/12/25 15:32 Dose: 40 mg Documented By: WILLIAN Lactated Ringer's (Lr) 1,000 mls @ 80 mls/hr IVCONT .[id number] [facility] Last Admin: 10/13/25 04:03 Dose: 80 mls/hr Documented By: EDY Ceftriaxone Sodium 1 gm/ (Sodium Chloride) 50 mls @ 100 mls/hr IV Q24H [facility] Last Admin: 10/13/25 13:12 Dose: 100 mls/hr Documented By: AMBAR Losartan Potassium (Losartan Potassium 50 Mg Tablet) 100 mg PO DAILY [facility]; Protocol Last Admin: 10/13/25 08:24 Dose: 100 mg Documented By: AMBAR Magnesium Hydroxide (Milk Of Magnesia 30 Ml Oral.Susp) 30 ml PO DAILY PRN PRN Reason: Constipation Melatonin (Melatonin 3 Mg Tablet) 6 mg PO BEDTIME PRN PRN Reason: Insomnia Pt Own (Cyclosporine [Restasis] 0.05 % Dropperette) 1 drop EYE-BOTH BID [facility] Last Admin: 10/13/25 08:24 Dose: 1 drop Documented By: AMBAR Ondansetron HCl (Ondansetron Hcl 4 Mg/2 Ml Vial) 4 mg IVPUSH Q8H PRN PRN Reason: Nausea and Vomiting Sodium Chloride (0.9 % Sodium Chloride Flush 3 Ml Syringe) 3 ml IVFLUSH QSHIFT [facility] Last Admin: 10/13/25 08:24 Dose: 3 ml Documented By: AMBAR Labs 10/13/25 05:44 10/13/25 05:44 Labs: Laboratory Results - last 24 hr 10/13/25 05:44 MCV 92.4 MCH 31.1 MCHC 33.6 RDW 14.0 Plt Count 196 MPV 10.1 Immature Gran % (Auto) 0.3 Neut % (Auto) 83.6 H Lymph % (Auto) 10.5 L [place] % (Auto) 5.2 Eos % (Auto) 0.2 Baso % (Auto) 0.2 Lymph # (Auto) 1.0 L [place] # (Auto) 0.5 Eos # (Auto) 0.0 Baso # (Auto) 0.0 Abs Immat Gran (auto) 0.03 Absolute Neuts (auto) 7.6 Absolute Nucleated RBC 0.000 Nucleated RBC % (auto) 0.0 Anion Gap 13 Estim Creat Clear Calc 84.1 Estimated GFR > 60 Random Glucose 99 Calcium 8.5 D Assessment and Plan (1) UTI (urinary tract infection): Status: Acute (2) Hydronephrosis: Status: Acute Plan This is an 89-year-old female with a PMH significant for?rheumatoid arthritis on methotrexate, osteoporosis, and hx of breast cancer who presents to the ED with?nausea and vomiting found to have UTI and kidney stones 1.Acute UTI(hydroureteronephrosis and left ureteral stones) -ceftriaxone (2) -urine culture, blood cultures pending -urology consult appreciated. NPO after midnight for stenting and cystoscopy in a.m. 2.HTN -acceptable control on current therapies -adjust as indicated 3.RA -stable and well compensated -hold methotrexate at this time Full Code DVT Prophylaxis: Lovenox Patient requires ongoing hospitalization for IV antibiotics to treat a UTI and for urology intervention for left ureteral stone Quality Stroke Does the patient have a stroke diagnosis?: No VTE Prior VTE?: No VTE Risk Level:: Medical - moderate - high VTE Device Contraindication: Treatment Not Indicated VTE Drug Contraindication: N/A - Med Ordered
[2025-10-13 15:03] VITALS: BP 137/68; PULSE 62; RESP 17; TEMP 36.6; O2SAT 93
--- NOTE | 2025-10-13 16:42 | MHC.CM.PN ---
PT REPORTS SHE LIVES ALONE WITH 3 CHILDREN LIVING CLOSE BY AND CHECKING IN DAILY SHE IS INDEPENDENT WITH CARE, USES NO DME AND DRIVES COPY OF HCP REQUESTED PCP: RAJINDER TRINH IMM DELIVERED DCP: HOME WITH NO SERVICES SON WILL TRANSPORT
[2025-10-13 19:21] VITALS: BP 122/62; PULSE 70; RESP 19; TEMP 36.2; O2SAT 94
[2025-10-14] VITALS (11 sets, daily range): BP systolic 133–173; BP diastolic 66–80; PULSE 55–69; RESP 15–22; TEMP 36.2–37.2; O2SAT 93–96
--- NOTE | 2025-10-14 00:45 | PC.NURSE ---
Pt rang call medeiros to go to the bathroom. Pt voided with assistance from this RN. Pt endorsing moderate nausea. VSS. Zofran administered, awaiting effectiveness. HOB elevated and TV put on for distraction. Call medeiros within reach.
[2025-10-14] MEDS: Lactated Ringers 1,000 ML 80 ML IVCONT ×2 (04:32→18:00)
[2025-10-14 05:50] LABS: MANUAL DIFF FLAG NO
[2025-10-14 05:57] LABS: Hematocrit 34.9 % (37.0-47.0); Hemoglobin 11.8 g/dl (12.0-16.0); Imm Gran Abs Auto 0.03 X10*3/uL (0.00-0.03); Imm Gran Pct Auto 0.4 % (0.0-0.4); Lymphocytes Absolute Auto 1.3 X10*3/uL (1.2-4.9); Mean Corpuscular HGB Conc 33.8 g/dl (31.0-35.0); Mean Corpuscular Hemoglobin 31.4 pg (27.0-33.0); Mean Corpuscular Volume 92.8 fL (80.0-98.0); NRBC Abs Auto 0.000 X10*3/uL (0.0-0.012); NRBC Pct Auto 0.0 /100WBC (0.0-0.2); Platelet Count 199 X10*3/uL (160-400); Red Blood Count 3.76 X10*6/uL (4.20-5.50); White Blood Count 6.9 X10*3/uL (4.8-10.8)
[2025-10-14 06:10] LABS: Alanine Aminotransferase 14 U/L (0-31); Albumin Level 3.4 g/dL (3.5-5.0); Alkaline Phosphatase 61 U/L (39-117); Anion Gap 11 (12-20); Aspartate Amino Transferase 23 U/L (5-31); Blood Urea Nitrogen 12 mg/dL (9-16); Calcium 8.4 mg/dL (8.4-10.2); Carbon Dioxide 27 mmol/L (22-29); Chloride 103 mmol/L (96-108); Creatinine Clr Calc Pharmacy 73.8; Estimated Glomerular Filt Rate > 60; Potassium 3.6 mmol/L (3.3-5.1); Sodium 137 mmol/L (135-145); Total Protein 6.1 g/dL (6.5-8.0)
--- NOTE | 2025-10-14 08:22 | HO.ANESPROP2 ---
HPI - Anesthesia Eval Consult details Narrative: 89 yr old female for left cysto, retrograde w/ stent replacement RA: on methotrexate (currently on hold). 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) Seropositive rheumatoid arthritis (Acute) Past Medical History Medical History Class 1 obesity with body mass index (BMI) of 32.0 to 32.9 in adult Urinary retention Hypertension UTI (urinary tract infection) History of mammogram (~01/24/25) History of breast cancer Rheumatoid arthritis Hospital discharge follow-up Establishing care with new doctor, encounter for Breast cancer 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 organ or systems involvement Family History Family History Father CVD (cardiovascular disease) Colon cancer Mother Colon cancer Alzheimer's dementia Surgical History Surgical History H/O left breast biopsy Hx of cholecystectomy Hx of tonsillectomy Social History Social History Household Members: None Housing: House Do you presently have visiting nurse or other home services: No Alcohol intake: current Alcohol intake frequency: holidays/special occasions only Alcohol type: wine Patient Tobacco Use Status: Never used Tobacco Smoked in Last 30 Days: No e-Cigarette/Vaping Use: Never Used Second Hand Smoke Exposure: No Use of substances other than those prescribed or required for medical reasons: No Currently Displaying Signs/Symptoms of Drug Intoxication Withdrawal: No Have you been hit, kicked, punched, or otherwise hurt by someone within the past year? If so, by whom?: No Do you feel safe in your current relationship?: No Current Relationship Is there a partner from a previous relationship who is making you feel unsafe now?: No Are you made to feel afraid or neglected: No Advance Directives: No Advance Directives Information Provided: No Do you have a plan to hurt others: No Plan Recently lost weight without trying: No Nutrition Risks: No Nutritional Risk Patient : No : No Poor oral hygiene: No service: No Current occupational status: retired Cognitive needs: No Hearing needs: No Vision needs: Yes (reading glasses) Meds Allergies Allergy/AdvReac Type Severity Reaction Status Date / Time sulfasalazine Allergy Intermediate nausea, Verified 10/12/25 10:47 vomiting Active Medications: Current Medications Acetaminophen (Acetaminophen 325 Mg Tablet) 650 mg PO Q6H PRN PRN Reason: Pain, Mild 1-3,fever,headache Last Admin: 10/14/25 05:45 Dose: 650 mg Calcium Carbonate (Calcium Carbonate 750 Mg Tab.Chew) 750 mg PO Q4H PRN PRN Reason: Heartburn Enoxaparin Sodium (Enoxaparin Sodium 40 Mg/0.4 Ml Syringe) 40 mg SUBCUT Q24H [facility] Last Admin: 10/13/25 15:10 Dose: 40 mg Lactated Ringer's (Lr) 1,000 mls @ 80 mls/hr IVCONT .[id number] [facility] Last Admin: 10/14/25 04:32 Dose: 80 mls/hr Ceftriaxone Sodium 1 gm/ (Sodium Chloride) 50 mls @ 100 mls/hr IV Q24H [facility] Last Infusion: 10/13/25 14:02 Dose: Infused Losartan Potassium (Losartan Potassium 50 Mg Tablet) 100 mg PO DAILY [facility]; Protocol Last Admin: 10/13/25 08:24 Dose: 100 mg Magnesium Hydroxide (Milk Of Magnesia 30 Ml Oral.Susp) 30 ml PO DAILY PRN PRN Reason: Constipation Melatonin (Melatonin 3 Mg Tablet) 6 mg PO BEDTIME PRN PRN Reason: Insomnia Pt Own (Cyclosporine [Restasis] 0.05 % Dropperette) 1 drop EYE-BOTH BID [facility] Last Admin: 10/13/25 20:15 Dose: 1 drop Ondansetron HCl (Ondansetron Hcl 4 Mg/2 Ml Vial) 4 mg IVPUSH Q8H PRN PRN Reason: Nausea and Vomiting Last Admin: 10/14/25 00:40 Dose: 4 mg Sodium Chloride (0.9 % Sodium Chloride Flush 3 Ml Syringe) 3 ml IVFLUSH QSHIFT [facility]SE Last Admin: 10/14/25 07:11 Dose: Not Given Home Medications ?Medication ?Instructions ?Recorded ?Confirmed ?Last Taken ?Type acetaminophen 325 mg tablet 650 mg PO Q6H PRN Pain 08/13/20 10/12/25 04/30/25 History (Tylenol) ascorbate calcium (vitamin C) 500 1,000 mg PO BID 08/13/20 10/12/25 04/29/25 History mg tablet cyclosporine 0.05 % eye drops in a 1 drp ophthalmic (eye) BID 04/30/25 10/12/25 04/29/25 History dropperette (Restasis) methotrexate sodium 2.5 mg tablet 15 mg PO WE@0900 10/12/25 10/12/25 Unknown History ondansetron 4 mg disintegrating 4 mg PO Q6H PRN nausea and vomiting 10/12/25 10/12/25 Unknown History tablet Exam Height,Weight and Vital Signs: Height 5 ft 4 in Weight 86 kg Last Vital Signs Temp 97.2 F 10/14/25 07:39 Pulse 66 10/14/25 07:39 Resp 18 10/14/25 07:39 BP 164/70 H 10/14/25 08:05 Pulse Ox 95 10/14/25 07:39 O2 Del Method Room Air 10/14/25 07:39 Pertinent Lab Results Pertinent Lab Results: Laboratory Tests 10/12/25 10/12/25 10/13/25 11:08 12:09 05:44 WBC 11.8 H 9.1 RBC 3.95 L 3.96 L Hgb 12.6 12.3 Hct 36.8 L 36.6 L MCV 93.2 92.4 MCH 31.9 31.1 MCHC 34.2 33.6 RDW 14.2 14.0 Plt Count 194 196 MPV 9.9 10.1 Immature Gran % (Auto) 0.3 0.3 Neut % (Auto) 88.1 H 83.6 H Lymph % (Auto) 7.1 L 10.5 L [place] % (Auto) 4.1 5.2 Eos % (Auto) 0.1 0.2 Baso % (Auto) 0.3 0.2 Lymph # (Auto) 0.8 L 1.0 L [place] # (Auto) 0.5 0.5 Eos # (Auto) 0.0 0.0 Baso # (Auto) 0.0 0.0 Abs Immat Gran (auto) 0.03 0.03 Absolute Neuts (auto) 10.4 H 7.6 Absolute Nucleated RBC 0.000 0.000 Nucleated RBC % (auto) 0.0 0.0 Sodium 133 L 136 Potassium 4.0 3.5 Chloride 100 102 Carbon Dioxide 24 25 Anion Gap 13 13 BUN 21 H 13 Creatinine 0.61 0.50 Estim Creat Clear Calc 68.3 84.1 Estimated GFR > 60 > 60 Random Glucose 130 H 99 Fasting Glucose Lactic Acid 1.3 Calcium 9.1 8.5 D Total Bilirubin 1.4 H AST 25 ALT 22 Alkaline Phosphatase 72 Total Protein 7.1 Albumin 4.0 Urine Color Yellow Urine Appearance Cloudy Urine pH 6.5 Ur Specific [place] 1.015 Urine Protein 30 (1+) H Urine Glucose (UA) Negative Urine Ketones Trace Urine Blood Small (1+) H Urine Nitrite Positive H Ur Leukocyte Esterase Moderate (2+) H Urine RBC 3-5 H Urine WBC >50 H Urine WBC Clumps Present Ur Squamous Epith Cells 0-2 Urine Bacteria 4+ Hyaline Casts 0-2 10/14/25 05:34 WBC 6.9 RBC 3.76 L Hgb 11.8 L Hct 34.9 L MCV 92.8 MCH 31.4 MCHC 33.8 RDW 14.0 Plt Count 199 MPV 9.8 Immature Gran % (Auto) 0.4 Neut % (Auto) 71.0 Lymph % (Auto) 19.0 L [place] % (Auto) 8.0 Eos % (Auto) 1.3 Baso % (Auto) 0.3 Lymph # (Auto) 1.3 [place] # (Auto) 0.6 Eos # (Auto) 0.1 Baso # (Auto) 0.0 Abs Immat Gran (auto) 0.03 Absolute Neuts (auto) 4.9 Absolute Nucleated RBC 0.000 Nucleated RBC % (auto) 0.0 Sodium 137 Potassium 3.6 Chloride 103 Carbon Dioxide 27 Anion Gap 11 L BUN 12 Creatinine 0.57 Estim Creat Clear Calc 73.8 Estimated GFR > 60 Random Glucose Fasting Glucose 102 H Lactic Acid Calcium 8.4 Total Bilirubin 0.7 AST 23 ALT 14 Alkaline Phosphatase 61 Total Protein 6.1 L Albumin 3.4 L Urine Color Urine Appearance Urine pH Ur Specific [place] Urine Protein Urine Glucose (UA) Urine Ketones Urine Blood Urine Nitrite Ur Leukocyte Esterase Urine RBC Urine WBC Urine WBC Clumps Ur Squamous Epith Cells Urine Bacteria Hyaline Casts Narrative Narrative: EKG 04/2025 Vent. Rate : 66 BPM Atrial Rate : 66 BPM P-R Int : 160 ms QRS Dur : 90 ms QT Int : 372 ms P-R-T Axes : 0 -7 17 degrees QTcB Int : 389 ms Normal sinus rhythm Normal ECG When compared with ECG of 18-Oct-2024 16:31, No significant change was found
--- NOTE | 2025-10-14 12:43 | MHC.CM.PN ---
Patient not medically cleared for dc. CM will continue to follow.
--- NOTE | 2025-10-14 15:59 | HO.PM.IMPN ---
Subjective Subjective Date of Service: 10/14/25 Interval History: Mild flank pain but tolerable per patient. Remains afebrile Review of Systems Denies chest pain Denies shortness of breath Denies nausea vomiting diarrhea Denies fever chills Physical Exam Vital Signs: Vital Signs: Last Vital Signs Temp 98.0 F 10/14/25 15:27 Pulse 59 10/14/25 15:27 Resp 18 10/14/25 15:27 BP 170/80 H 10/14/25 15:27 Pulse Ox 94 10/14/25 15:27 O2 Del Method Room Air 10/14/25 15:27 BMI result Body Mass Index 32.5 Const: Other: Awake alert no acute distress Resp: Other: Clear to auscultation bilaterally no rales rhonchi or wheezes Cardio: Other: No S4; positive S1-S2; no S3 murmurs rubs or gallops GI: Other: Soft nontender nondistended normoactive bowel sounds Extrem: Other: No edema bilaterally Objective Data Active Medications Acetaminophen (Acetaminophen 325 Mg Tablet) 650 mg PO Q6H PRN PRN Reason: Pain, Mild 1-3,fever,headache Last Admin: 10/14/25 05:45 Dose: 650 mg Documented By: EDY Calcium Carbonate (Calcium Carbonate 750 Mg Tab.Chew) 750 mg PO Q4H PRN PRN Reason: Heartburn Enoxaparin Sodium (Enoxaparin Sodium 40 Mg/0.4 Ml Syringe) 40 mg SUBCUT Q24H [facility] Last Admin: 10/14/25 14:54 Dose: Not Given Documented By: JACK Non-Admin Reason: pre-procedure Ceftriaxone Sodium 1 gm/ (Sodium Chloride) 50 mls @ 100 mls/hr IV Q24H [facility] Last Infusion: 10/14/25 13:37 Dose: Infused Documented By: JACK Losartan Potassium (Losartan Potassium 50 Mg Tablet) 100 mg PO DAILY [facility]; Protocol Last Admin: 10/14/25 10:07 Dose: Not Given Documented By: JACK Non-Admin Reason: NPO per provider Magnesium Hydroxide (Milk Of Magnesia 30 Ml Oral.Susp) 30 ml PO DAILY PRN PRN Reason: Constipation Melatonin (Melatonin 3 Mg Tablet) 6 mg PO BEDTIME PRN PRN Reason: Insomnia Pt Own (Cyclosporine [Restasis] 0.05 % Dropperette) 1 drop EYE-BOTH BID [facility] Last Admin: 10/14/25 10:21 Dose: 1 drop Documented By: JACK Ondansetron HCl (Ondansetron Hcl 4 Mg/2 Ml Vial) 4 mg IVPUSH Q8H PRN PRN Reason: Nausea and Vomiting Last Admin: 10/14/25 00:40 Dose: 4 mg Documented By: EDY Sodium Chloride (0.9 % Sodium Chloride Flush 3 Ml Syringe) 3 ml IVFLUSH QSHIFT [facility] Last Admin: 10/14/25 15:04 Dose: Not Given Documented By: JACK Non-Admin Reason: IV Running Labs 10/14/25 05:34 10/14/25 05:34 Labs: Laboratory Results - last 24 hr 10/14/25 05:34 MCV 92.8 MCH 31.4 MCHC 33.8 RDW 14.0 Plt Count 199 MPV 9.8 Immature Gran % (Auto) 0.4 Neut % (Auto) 71.0 Lymph % (Auto) 19.0 L [place] % (Auto) 8.0 Eos % (Auto) 1.3 Baso % (Auto) 0.3 Lymph # (Auto) 1.3 [place] # (Auto) 0.6 Eos # (Auto) 0.1 Baso # (Auto) 0.0 Abs Immat Gran (auto) 0.03 Absolute Neuts (auto) 4.9 Absolute Nucleated RBC 0.000 Nucleated RBC % (auto) 0.0 Anion Gap 11 L Estim Creat Clear Calc 73.8 Estimated GFR > 60 Fasting Glucose 102 H Calcium 8.4 Total Bilirubin 0.7 AST 23 ALT 14 Alkaline Phosphatase 61 Total Protein 6.1 L Albumin 3.4 L Microbiology Microbiology Results: Microbiology 10/12/25 12:09 Blood Culture - Preliminary Blood - Venous No growth after 48 hours. 10/12/25 12:09 Blood Culture - Preliminary Blood - Venous No growth after 48 hours. 10/12/25 Unknown Urine Culture - Final Urine clean catch - Clean Catch Midstream Assessment and Plan (1) UTI (urinary tract infection): Status: Acute (2) Hypertension: Status: Acute Plan This is an 89-year-old female with a PMH significant for?rheumatoid arthritis on methotrexate, osteoporosis, and hx of breast cancer who presents to the ED with?nausea and vomiting found to have UTI and kidney stones 1.Acute UTI(hydroureteronephrosis and left ureteral stones) -ceftriaxone (3).. Would continue given response clinically to empiric ceftriaxone -urine culture greater than 100,000 mixed sherry; blood cultures negative times 48 hours -urology consult appreciated. NPO after midnight for stenting and cystoscopy in a.m. 2.HTN -acceptable control on current therapies -adjust as indicated 3.RA -stable and well compensated -hold methotrexate at this time Full Code DVT Prophylaxis: Lovenox Patient requires ongoing hospitalization for IV antibiotics to treat a UTI and for urology intervention for left ureteral stone Quality Stroke Does the patient have a stroke diagnosis?: No VTE Prior VTE?: No VTE Risk Level:: Medical - moderate - high VTE Device Contraindication: Treatment Not Indicated VTE Drug Contraindication: N/A - Med Ordered
--- NOTE | 2025-10-14 18:43 | MHC.SHP ---
Pre-Procedural Eval Section A - 24 Hr Update-Section A only Date of Service: 10/14/25 The patient is an INPATIENT: Yes Changes since office visit: No Cold of Flu in the past 2 weeks, No New Medical Problems, No Changes in Medication and No Patient answered all questions The patient has been examined within 24 hours of the surgical procedure. The History & Physical has been completed within 30 days and I have reviewed it.: Yes Section B - Complete if H&P > 30 days Chief Complaint: UTI, N/V Details of Present Illness: Plan for cystoscopy, left retrograde, left stent placement Allergies: Allergies Allergy/AdvReac Type Severity Reaction Status Date / Time sulfasalazine Allergy Intermediate nausea, Verified 10/12/25 10:47 vomiting Plan I have reviewed the history and physical and performed a pertinent physical examination on my patient. No changes have occurred unless specified. Time Spent With Patient Time: Total time managing care of this patient today ____ minutes.
--- NOTE | 2025-10-14 18:59 | P.CONAN_ITS ---
HPI - Anesthesia Eval Consult details Narrative: Left ureter obstructionb PMFSH Active Problems Active Problems: All Active Problems Hydronephrosis (Acute) Renal colic (Acute) Nausea & vomiting (Acute) Class 1 obesity with body mass index (BMI) of 32.0 to 32.9 in adult (Acute) Urinary retention (Acute) Hypertension (Acute) UTI (urinary tract infection) (Acute) History of breast cancer (Acute) Rheumatoid arthritis (Acute) Hospital discharge follow-up (Acute) Establishing care with new doctor, encounter for (Acute) Kidney stone on left side (Acute) Acute pyelonephritis (Acute) Viral gastroenteritis (Acute) 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 (Acute) 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) Seropositive rheumatoid arthritis (Acute) Past Medical History Medical History Class 1 obesity with body mass index (BMI) of 32.0 to 32.9 in adult Urinary retention Hypertension UTI (urinary tract infection) History of mammogram (~01/24/25) History of breast cancer Rheumatoid arthritis Hospital discharge follow-up Establishing care with new doctor, encounter for Breast cancer 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 organ or systems involvement Family History Family History Father CVD (cardiovascular disease) Colon cancer Mother Colon cancer Alzheimer's dementia Family history of problems with anesthesia: No Surgical History Surgical History H/O left breast biopsy Hx of cholecystectomy Hx of tonsillectomy History of Problems with Anesthesia: No Social History Social History Household Members: None Housing: House Do you presently have visiting nurse or other home services: No Alcohol intake: current Alcohol intake frequency: holidays/special occasions only Alcohol type: wine Patient Tobacco Use Status: Never used Tobacco Smoked in Last 30 Days: No e-Cigarette/Vaping Use: Never Used Second Hand Smoke Exposure: No Use of substances other than those prescribed or required for medical reasons: No Currently Displaying Signs/Symptoms of Drug Intoxication Withdrawal: No Have you been hit, kicked, punched, or otherwise hurt by someone within the past year? If so, by whom?: No Do you feel safe in your current relationship?: No Current Relationship Is there a partner from a previous relationship who is making you feel unsafe now?: No Are you made to feel afraid or neglected: No Advance Directives: No Advance Directives Information Provided: No Do you have a plan to hurt others: No Plan Recently lost weight without trying: No Nutrition Risks: No Nutritional Risk Patient : No : No Poor oral hygiene: No service: No Current occupational status: retired Cognitive needs: No Hearing needs: No Vision needs: Yes (reading glasses) Meds Allergies Allergy/AdvReac Type Severity Reaction Status Date / Time sulfasalazine Allergy Intermediate nausea, Verified 10/12/25 10:47 vomiting Active Medications: Current Medications Acetaminophen (Acetaminophen 325 Mg Tablet) 650 mg PO Q6H PRN PRN Reason: Pain, Mild 1-3,fever,headache Last Admin: 10/14/25 05:45 Dose: 650 mg Calcium Carbonate (Calcium Carbonate 750 Mg Tab.Chew) 750 mg PO Q4H PRN PRN Reason: Heartburn Enoxaparin Sodium (Enoxaparin Sodium 40 Mg/0.4 Ml Syringe) 40 mg SUBCUT Q24H [facility] Last Admin: 10/14/25 14:54 Dose: Not Given Ceftriaxone Sodium 1 gm/ (Sodium Chloride) 50 mls @ 100 mls/hr IV Q24H [facility] Last Infusion: 10/14/25 13:37 Dose: Infused Lactated Ringer's (Lr) 1,000 mls @ 80 mls/hr IVCONT .[id number] [facility] Last Admin: 10/14/25 18:00 Dose: 80 mls/hr Losartan Potassium (Losartan Potassium 50 Mg Tablet) 100 mg PO DAILY [facility]; Protocol Last Admin: 10/14/25 10:07 Dose: Not Given Magnesium Hydroxide (Milk Of Magnesia 30 Ml Oral.Susp) 30 ml PO DAILY PRN PRN Reason: Constipation Melatonin (Melatonin 3 Mg Tablet) 6 mg PO BEDTIME PRN PRN Reason: Insomnia Pt Own (Cyclosporine [Restasis] 0.05 % Dropperette) 1 drop EYE-BOTH BID [facility] Last Admin: 10/14/25 10:21 Dose: 1 drop Ondansetron HCl (Ondansetron Hcl 4 Mg/2 Ml Vial) 4 mg IVPUSH Q8H PRN PRN Reason: Nausea and Vomiting Last Admin: 10/14/25 00:40 Dose: 4 mg Sodium Chloride (0.9 % Sodium Chloride Flush 3 Ml Syringe) 3 ml IVFLUSH QSHIFT [facility] Last Admin: 10/14/25 15:04 Dose: Not Given Home Medications ?Medication ?Instructions ?Recorded ?Confirmed ?Last Taken ?Type acetaminophen 325 mg tablet 650 mg PO Q6H PRN Pain 10/12/25 04/30/25 Hi story (Tylenol) ascorbate calcium (vitamin C) 500 1,000 mg PO BID 07/3110/12/25 04/29/25 History mg tablet cyclosporine 0.05 % eye drops in a 1 drp ophthalmic (e ye) BID 04/30/25 10/12/25 04/29/25 History dropperette (Restasis) methotrexate sodium 2.5 mg tablet 15 mg PO WE@0900 10/12/25 Unknown History ondansetron 4 mg disintegrating 4 mg PO Q6H PRN nausea and vomiting 10/12/25 10/12/25 Unknown History tablet Exam Height,Weight and Vital Signs: Height 5 ft 4 in Weight 86 kg Last Vital Signs Temp 99 F 10/14/25 18:42 Pulse 63 10/14/25 18:42 Resp 22 H 10/14/25 18:42 BP 166/71 H 10/14/25 18:56 Pulse Ox 94 10/14/25 18:42 O2 Del Method Room Air 10/14/25 18:42 Pertinent Lab Results Pertinent Lab Results: Laboratory Tests 10/12/25 10/12/25 10/13/25 11:08 12:09 05:44 WBC 11.8 H 9.1 RBC 3.95 L 3.96 L Hgb 12.6 12.3 Hct 36.8 L 36.6 L MCV 93.2 92.4 MCH 31.9 31.1 MCHC 34.2 33.6 RDW 14.2 14.0 Plt Count 194 196 MPV 9.9 10.1 Immature Gran % (Auto) 0.3 0.3 Neut % (Auto) 88.1 H 83.6 H Lymph % (Auto) 7.1 L 10.5 L [place] % (Auto) 4.1 5.2 Eos % (Auto) 0.1 0.2 Baso % (Auto) 0.3 0.2 Lymph # (Auto) 0.8 L 1.0 L [place] # (Auto) 0.5 0.5 Eos # (Auto) 0.0 0.0 Baso # (Auto) 0.0 0.0 Abs Immat Gran (auto) 0.03 0.03 Absolute Neuts (auto) 10.4 H 7.6 Absolute Nucleated RBC 0.000 0.000 Nucleated RBC % (auto) 0.0 0.0 Sodium 133 L 136 Potassium 4.0 3.5 Chloride 100 102 Carbon Dioxide 24 25 Anion Gap 13 13 BUN 21 H 13 Creatinine 0.61 0.50 Estim Creat Clear Calc 68.3 84.1 Estimated GFR > 60 > 60 Random Glucose 130 H 99 Fasting Glucose Lactic Acid 1.3 Calcium 9.1 8.5 D Total Bilirubin 1.4 H AST 25 ALT 22 Alkaline Phosphatase 72 Total Protein 7.1 Albumin 4.0 Urine Color Yellow Urine Appearance Cloudy Urine pH 6.5 Ur Specific [place] 1.015 Urine Protein 30 (1+) H Urine Glucose (UA) Negative Urine Ketones Trace Urine Blood Small (1+) H Urine Nitrite Positive H Ur Leukocyte Esterase Moderate (2+) H Urine RBC 3-5 H Urine WBC >50 H Urine WBC Clumps Present Ur Squamous Epith Cells 0-2 Urine Bacteria 4+ Hyaline Casts 0-2 10/14/25 05:34 WBC 6.9 RBC 3.76 L Hgb 11.8 L Hct 34.9 L MCV 92.8 MCH 31.4 MCHC 33.8 RDW 14.0 Plt Count 199 MPV 9.8 Immature Gran % (Auto) 0.4 Neut % (Auto) 71.0 Lymph % (Auto) 19.0 L [place] % (Auto) 8.0 Eos % (Auto) 1.3 Baso % (Auto) 0.3 Lymph # (Auto) 1.3 [place] # (Auto) 0.6 Eos # (Auto) 0.1 Baso # (Auto) 0.0 Abs Immat Gran (auto) 0.03 Absolute Neuts (auto) 4.9 Absolute Nucleated RBC 0.000 Nucleated RBC % (auto) 0.0 Sodium 137 Potassium 3.6 Chloride 103 Carbon Dioxide 27 Anion Gap 11 L BUN 12 Creatinine 0.57 Estim Creat Clear Calc 73.8 Estimated GFR > 60 Random Glucose Fasting Glucose 102 H Lactic Acid Calcium 8.4 Total Bilirubin 0.7 AST 23 ALT 14 Alkaline Phosphatase 61 Total Protein 6.1 L Albumin 3.4 L Urine Color Urine Appearance Urine pH Ur Specific [place] Urine Protein Urine Glucose (UA) Urine Ketones Urine Blood Urine Nitrite Ur Leukocyte Esterase Urine RBC Urine WBC Urine WBC Clumps Ur Squamous Epith Cells Urine Bacteria Hyaline Casts Airway Mallampati Class: II TM Dist: >3cm Neck ROM: Full Loose/Missing/Broken Teeth: No Heart: RRR Lungs: CTA Assessment and Plan Assessment Anesthesia Assessment: Anesthesia Plan Discussed and Chart Reviewed Final Anesthetic Review Family History of Problems with Anesthesia: No History of Problems with Anesthesia: No NPO: Yes ASA Class: III and Emergency Final Preanesthetic Review: No Changes in Pt Med Stat, Meds/Allgs Chart Reviewed, Consent Obtained/Reviewed and Anes Risks/Benef Reviewed Patient Risk: Intermediate Procedure Risk: Low Anesthetic Plan Anesthetic Plan: GA Disposition: Standard PACU
--- NOTE | 2025-10-14 19:41 | P.OP_ITS ---
Operative Note Operative Note Date of Service: 10/14/25 Narrative: PreOperative Diagnosis: Left proximal ureteric stone Post Operative Diagnosis: Left proximal ureteric stone Procedure: Cystoscopy, left retrograde, left stent placement Surgeon: Dr Luther Del Castillo Anesthesia: Sedation Indications for procedure: Admit with stone, elevated white count. Procedure: After informed consent was verified the patient was brought to the operating room and placed in a supine position. Anesthesia was administered per protocol. The patient was placed in modified dorsal lithotomy position and prepped and draped in a sterile fashion. A safety pause time-out was performed. Laterality of procedure and antibiotics were confirmed, appropriate imaging was available A 22 [place] cystoscope was introduced per urethra. No abnormality was noted of urethra or bladder. Both ureteric orifices were seen in a normal position. The left ureter was cannulated with an open ended catheter and a retrograde examination was performed. Filling defect left proximal ureter . A Sensor guidewire was placed under fluoroscopy and a good coil was seen within the renal pelvis. A 6 [place] by 24 cm double J stent was advanced over the wire and up to the level of the renal pelvis under fluoroscopic and direct visualization. The stent was seen with appropriate coil within the renal pelvis and in the bladder after deployment. The patient tolerated the procedure well and was transferred in a stable condition to the recovery area. Pathology: Drains: As above
[2025-10-14] MEDS: 0.9 % Sodium Chloride Flush 3 ML SYRINGE IVFLUSH (21:00)
[2025-10-15 03:43] VITALS: BP 141/72; PULSE 54; RESP 18; TEMP 36.3; O2SAT 93
[2025-10-15 06:14] LABS: MANUAL DIFF FLAG NO
[2025-10-15 06:19] LABS: Hematocrit 35.9 % (37.0-47.0); Hemoglobin 12.0 g/dl (12.0-16.0); Imm Gran Abs Auto 0.03 X10*3/uL (0.00-0.03); Imm Gran Pct Auto 0.4 % (0.0-0.4); Lymphocytes Absolute Auto 1.1 X10*3/uL (1.2-4.9); Mean Corpuscular HGB Conc 33.4 g/dl (31.0-35.0); Mean Corpuscular Hemoglobin 31.5 pg (27.0-33.0); Mean Corpuscular Volume 94.2 fL (80.0-98.0); NRBC Abs Auto 0.000 X10*3/uL (0.0-0.012); NRBC Pct Auto 0.0 /100WBC (0.0-0.2); Platelet Count 183 X10*3/uL (160-400); Red Blood Count 3.81 X10*6/uL (4.20-5.50); White Blood Count 6.9 X10*3/uL (4.8-10.8)
[2025-10-15 06:32] LABS: Alanine Aminotransferase 13 U/L (0-31); Albumin Level 3.2 g/dL (3.5-5.0); Alkaline Phosphatase 57 U/L (39-117); Anion Gap 10 (12-20); Aspartate Amino Transferase 23 U/L (5-31); Blood Urea Nitrogen 10 mg/dL (9-16); Calcium 8.2 mg/dL (8.4-10.2); Carbon Dioxide 26 mmol/L (22-29); Chloride 104 mmol/L (96-108); Creatinine Clr Calc Pharmacy 80.8; Estimated Glomerular Filt Rate > 60; Potassium 3.3 mmol/L (3.3-5.1); Sodium 137 mmol/L (135-145); Total Protein 5.7 g/dL (6.5-8.0)
[2025-10-15 07:29] VITALS: BP 133/60; PULSE 62; RESP 18; TEMP 36.9; O2SAT 94
--- NOTE | 2025-10-15 08:28 | HO.POSTANES ---
Post Anesthesia Evaluation Post Anesthesia Evaluation Date of Service: 10/15/25 Vital Signs: Vital Signs Temp Pulse Resp BP Pulse Ox O2 Del Method 10/15/25 07:29 98.5 F 62 18 133/60 94 Room Air 10/15/25 03:43 97.3 F 54 18 141/72 H 93 Room Air Anesthesia: General Mental Status: Awake Pain Control: Satisfactory Nausea/Vomiting: None Hydration: Adequate Anesthesia-Related Issues: No Anes. Related Issues
[2025-10-15] MEDS: Milk of Magnesia 30 ML ORAL.SUSP PO (15:14)
[2025-10-15 15:42] VITALS: BP 146/67; PULSE 70; RESP 18; TEMP 36.8; O2SAT 96
--- NOTE | 2025-10-15 18:48 | P.PNIM_ITS ---
Subjective Subjective Date of Service: 10/15/25 Interval History: No new issures Review of Systems Denies chest pain Denies shortness of breath Denies nausea vomiting diarrhea Denies fever chills Physical Exam 2 Vital Signs: Vital Signs: Last Vital Signs Temp 98.3 F 10/15/25 15:42 Pulse 70 10/15/25 15:42 Resp 18 10/15/25 15:42 BP 146/67 H 10/15/25 15:42 Pulse Ox 96 10/15/25 15:42 O2 Del Method Room Air 10/15/25 15:42 BMI result Body Mass Index 32.5 Const: Other: Awake alert no acute distress Resp: Other: Clear to auscultation bilaterally no rales rhonchi or wheezes Cardio: Other: No S4; positive S1-S2; no S3 murmurs rubs or gallops GI: Other: Soft nontender nondistended normoactive bowel sounds Extrem: Other: No edema bilaterally Objective Data Active Medications Acetaminophen (Acetaminophen 325 Mg Tablet) 650 mg PO Q6H PRN PRN Reason: Pain, Mild 1-3,fever,headache Last Admin: 10/14/25 05:45 Dose: 650 mg Documented By: EDY Calcium Carbonate (Calcium Carbonate 750 Mg Tab.Chew) 750 mg PO Q4H PRN PRN Reason: Heartburn Enoxaparin Sodium (Enoxaparin Sodium 40 Mg/0.4 Ml Syringe) 40 mg SUBCUT Q24H COUNT INCLUDES THE [facility] Last Admin: 10/15/25 14:25 Dose: 40 mg Documented By: JACK Lactated Ringer's (Lr) 1,000 mls @ 80 mls/hr IVCONT .[id number] COUNT INCLUDES THE [facility] Last Infusion: 10/15/25 10:09 Dose: Infused Documented By: JACK Ceftriaxone Sodium 1 gm/ (Sodium Chloride) 50 mls @ 100 mls/hr IV Q24H COUNT INCLUDES THE [facility] Last Infusion: 10/15/25 14:56 Dose: Infused Documented By: JACK Losartan Potassium (Losartan Potassium 50 Mg Tablet) 100 mg PO DAILY COUNT INCLUDES THE [facility]; Protocol Last Admin: 10/15/25 08:26 Dose: 100 mg Documented By: JACK Magnesium Hydroxide (Milk Of Magnesia 30 Ml Oral.Susp) 30 ml PO DAILY PRN PRN Reason: Constipation Last Admin: 10/15/25 15:14 Dose: 30 ml Documented By: JACK Melatonin (Melatonin 3 Mg Tablet) 6 mg PO BEDTIME PRN PRN Reason: Insomnia Naloxone HCl (Naloxone Hcl 0.4 Mg/Ml Vial) 0.04 mg IVPUSH Q5M PRN PRN Reason: Excessive sedation or RR < 8 Pt Own (Cyclosporine [Restasis] 0.05 % Dropperette) 1 drop EYE-BOTH BID COUNT INCLUDES THE [facility] Last Admin: 10/15/25 08:26 Dose: 1 drop Documented By: JACK Ondansetron HCl (Ondansetron Hcl 4 Mg/2 Ml Vial) 4 mg IVPUSH Q8H PRN PRN Reason: Nausea and Vomiting Last Admin: 10/14/25 00:40 Dose: 4 mg Documented By: EDY Sodium Chloride (0.9 % Sodium Chloride Flush 3 Ml Syringe) 3 ml IVFLUSH QSHIFT COUNT INCLUDES THE [facility] Last Admin: 10/15/25 15:18 Dose: Not Given Documented By: JACK Non-Admin Reason: Previously Administered Labs 10/15/25 06:11 10/15/25 05:52 Labs: Laboratory Results - last 24 hr 10/15/25 10/15/25 05:52 06:11 MCV 94.2 MCH 31.5 MCHC 33.4 RDW 13.9 Plt Count 183 MPV 9.9 Immature Gran % (Auto) 0.4 Neut % (Auto) 70.8 Lymph % (Auto) 15.5 L [place] % (Auto) 10.7 Eos % (Auto) 2.2 Baso % (Auto) 0.4 Lymph # (Auto) 1.1 L [place] # (Auto) 0.7 Eos # (Auto) 0.2 Baso # (Auto) 0.0 Abs Immat Gran (auto) 0.03 Absolute Neuts (auto) 4.9 Absolute Nucleated RBC 0.000 Nucleated RBC % (auto) 0.0 Anion Gap 10 L Estim Creat Clear Calc 80.8 Estimated GFR > 60 Fasting Glucose 82 Calcium 8.2 L Total Bilirubin 0.5 AST 23 ALT 13 Alkaline Phosphatase 57 Total Protein 5.7 L Albumin 3.2 L Microbiology Microbiology Results: Microbiology 10/12/25 12:09 Blood Culture - Preliminary Blood - Venous No growth after 48 hours. 10/12/25 12:09 Blood Culture - Preliminary Blood - Venous No growth after 48 hours. Assessment and Plan (1) UTI (urinary tract infection): Status: Acute (2) Hypertension: Status: Acute Plan This is an 89-year-old female with a PMH significant for?rheumatoid arthritis on methotrexate, osteoporosis, and hx of breast cancer who presents to the ED with?nausea and vomiting found to have UTI and kidney stones .Acute UTI(hydroureteronephrosis and left ureteral stones) ceftriaxone , change to PO Ceftin at dc, cultures negative. s/p cysto with stent day prior HTN acceptable control on current therapies adjust as indicated RA resume methotraxote Full Code DVT Prophylaxis: Lovenox Quality Stroke Does the patient have a stroke diagnosis?: No VTE Prior VTE?: No VTE Risk Level:: Medical - moderate - high VTE Device Contraindication: Treatment Not Indicated VTE Drug Contraindication: N/A - Med Ordered
[2025-10-15 19:27] VITALS: BP 140/62; PULSE 72; RESP 15; TEMP 36.8; O2SAT 96
[2025-10-15] MEDS: Lactated Ringers 1,000 ML 80 ML IVCONT (20:40)
[2025-10-16] MEDS: 0.9 % Sodium Chloride Flush 3 ML SYRINGE IVFLUSH (01:59)
[2025-10-16 03:53] VITALS: BP 138/62; PULSE 61; RESP 16; TEMP 36.7; O2SAT 94
[2025-10-16 07:18] VITALS: BP 140/67; PULSE 66; RESP 18; TEMP 36.2; O2SAT 95
[2025-10-16] MEDS: Lactated Ringers 1,000 ML 80 ML IVCONT (07:25)
[2025-10-16 07:26] VITALS: BP 140/67
--- NOTE | 2025-10-16 11:02 | MHC.CM.PN ---
Per MD rounds, patient medically cleared. PT rec home w/ family support. Patient lives alone, but has 3 children that live nearby and check in daily. Reviewed w/ patient, who feels comfortable w/ plan. Daughter will provide transport at 2:30pm. MD and RN aware.
[2025-10-16] MEDS: Milk of Magnesia 30 ML ORAL.SUSP PO (12:17)
--- NOTE | 2025-10-16 12:35 | PM.DS ---
DS: Providers Provider Date of admission: 10/12/25 14:53 Date of discharge: 10/15/25 Primary care physician: Corby Moore MD Consults: 10/12/25 14:39 Consult to Urology Routine Consulting Provider: [facility] Reason for consultation: kidney stones, UTI, left hydro Has provider been notified: No DS: Diagnosis Discharge Diagnosis (1) UTI (urinary tract infection): Status: Acute (2) Hypertension: Status: Acute DS: Summary Hospital Course Hospital Course: admission hpi Chief Complaint: N/V/urinary symptoms This is an 89-year-old female who presents to the emergency department today with nausea and vomiting. Patient reports symptoms began on Tuesday or Tuesday. She has had multiple episodes of nausea and vomiting. She noticed foul odor her urine and increased urinary frequency which is unusual for her. She reports chills stating that she has been unable to keep warm. She has not taken her temperature. Yesterday she went care but she was unable to pee for urine sample. She reports back pain but denies abdominal pain. She has been unable to tolerate po and was actively dry heaving during my evaluation. Today in the emergency department she had urinalysis which was consistent with UTI. CT scan of the abdomen and pelvis showed kidney stones with mild left hydroureteronephrosis. She was treated with IV ceftriaxone. hospital course Patient presented N/V and urinary symptoms and CT showed Mild left hydroureteronephrosis. There are 2 stones in the left proximal ureter, however the ureter is dilated greater than the stones, likely indicating incomplete obstruction. The ureter is also dilated distal to the stones; infection or a recently passed stone may be considered. 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 Persistent wall thickening of the left renal pelvis and ureter indicating pyelitis/ureteritis, infectious/inflammatory. Correlate with urinalysis. She was initiated on IV antibiotics, urine culture is negative, renal function is normal. She underwent Cystoscopy, left retrograde, left stent placement on 10/14 and is doing well post operatively. Will discharge to complete 10 days of antibiotics with Cefuroxime and outpatient follow up with urology Time Attestation Discharge Coordination Time (in mins): 45 Quality: Safe Use of Opioids Does Pt have an Active Cancer Diagnosis on the Problem List?: No Quality: Stroke Does the patient have a stroke diagnosis?: No Physical Exam Vital Signs: Vital Signs: Selected Entries 10/16/25 07:18 10/16/25 07:26 Temperature 97.1 F Pulse Rate 66 Respiratory Rate 18 Blood Pressure 140/67 H Pulse Oximetry 95 Oxygen Delivery Me thod Room Air DS: Data Data Completed and Pending Labs on day of discharge: Laboratory Results - last 24 hr 10/15/25 10/15/25 05:52 06:11 WBC 6.9 RBC 3.81 L Hgb 12.0 Hct 35.9 L MCV 94.2 MCH 31.5 MCHC 33.4 RDW 13.9 Plt Count 183 MPV 9.9 Immature Gran % (Auto) 0.4 Neut % (Auto) 70.8 Lymph % (Auto) 15.[address] [place] % (Auto) 10.7 Eos % (Auto) 2.2 Baso % (Auto) 0.4 Lymph # (Auto) 1.[address] [place] # (Auto) 0.7 Eos # (Auto) 0.2 Baso # (Auto) 0.0 Abs Immat Gran (auto) 0.03 Absolute Neuts (auto) 4.9 Absolute Nucleated RBC 0.000 Nucleated RBC % (auto) 0.0 Sodium 137 Potassium 3.3 Chloride 104 Carbon Dioxide 26 Anion Gap 10 L BUN 10 Creatinine 0.52 Estim Creat Clear Calc 80.8 Estimated GFR > 60 Fasting Glucose 82 Calcium 8.2 L Total Bilirubin 0.5 AST 23 ALT 13 Alkaline Phosphatase 57 Total Protein 5.7 L Albumin 3.2 L Preliminary micro results at discharge 10/12/25 12:09 Blood Culture - Preliminary Blood - Venous No growth after 48 hours. 10/12/25 12:09 Blood Culture - Preliminary Blood - Venous No growth after 48 hours. Discharge Plan Discharge Anticipated Discharge Date/Time: 10/16/25 12:34 Patient Disposition: Home, Self-Care Discharge Diagnosis: Kidney stone, hydronephrosis Referrals: Corby Moore MD [Primary Care Provider, Internal Medicine] - 1 Week Luther Del Castillo MD [Physician, Urology] - 2 Weeks Discharge Medications: New cefuroxime axetil 500 mg tablet 500 mg PO BID 6 Days Qty: 12 0RF Continued cholecalciferol (vitamin D3) 25 mcg (1,000 unit) capsule 25 mcg PO DAILY Qty: 90 1RF losartan 100 mg tablet 100 mg PO DAILY Qty: 90 1RF cyclosporine [Restasis] 0.05 % dropperette 1 drp ophthalmic (eye) BID methotrexate sodium 2.5 mg tablet 15 mg PO WE@0900 ondansetron 4 mg tablet,disintegrating 4 mg PO Q6H PRN (Reason: nausea and vomiting) ascorbate calcium (vitamin C) 500 mg tablet 1,000 mg PO BID acetaminophen [Tylenol] 325 mg tablet 650 mg PO Q6H PRN (Reason: Pain) folic acid 1 mg tablet 1 mg PO DAILY Qty: 90 1RF Discharge Orders: Discharge Order (Routine); Ordered 10/16/25 Ordered By: Kermit Connell Diet: Advance to usual diet Activity on Discharge: As tolerated Stand Alone Forms: Patient Portal Discharge page Print Language: Vietnamese Care Plan Goals: recovery from kidney stone and possible kidney infection Health Concerns: kidney stone kidney infection Plan of Treatment: Take Cefuroxime as recommended and follow up with your PCP in a week follow up with Dr. Del Castillo for stent management Assessment: see above
[2025-10-16 13:47] VITALS: BP 148/66; PULSE 73; RESP 16; TEMP 36.6; O2SAT 93
== END 2025-10-16 14:26 | disposition home or self-care (01) | DRG 661 ==
LOC: HO.ED 14:10 → HO.EDOVER 14:53 → HO.S3 19:29
PROVIDERS: Hospitalist; Nurse Practitioner Family; Urology; Admitting Provider Physician Assistant Medical; Emergency Provider Emergency Medicine; PCP Internal Medicine; Visit Provider Internal Medicine
PROC: 0T778DZ Dilation of Left Ureter with Intraluminal Device, Via Natural or Artificial Opening Endoscopic (ICD-10-PCS; principal; 2025-10-14 17:50)
DX: N13.6 Pyonephrosis (principal); M05.9 Rheumatoid arthritis with rheumatoid factor, unspecified; I10 Essential (primary) hypertension; Z79.631 Long term (current) use of antimetabolite agent; Z79.899 Other long term (current) drug therapy
CPT/HCPCS: 36415; 74176; 80048; 80053; 81001; 83605; 85025; 87040; 87086; 97162; 99212; 99285; C1758; C1769; C2617; J0360; J0696; J1650; J2003; J2405; J2704; J3010; J7120; Q9967

== ENCOUNTER → 2025-10-12 11:52 | Outpatient (BNV) | payer MEDICARE, SELFPAY | PROVIDERS: Emergency Provider Emergency Medicine; PCP Internal Medicine; Visit Provider Radiology Diagnostic Radiology | DX: N13.2 Hydronephrosis with renal and ureteral calculous obstruction (principal) | CPT/HCPCS: 74176 ==

== ENCOUNTER → 2025-10-12 14:53 | Outpatient (BNV) | payer MEDICARE, SELFPAY | PROVIDERS: Admitting Provider Physician Assistant Medical; Emergency Provider Emergency Medicine; PCP Internal Medicine; Visit Provider Urology | DX: N20.1 Calculus of ureter (principal) | CPT/HCPCS: 52332; 74420; 99223 ==

== ENCOUNTER → 2025-10-12 14:53 | Outpatient (BNV) | payer MEDICARE, SELFPAY | PROVIDERS: Admitting Provider Physician Assistant Medical; Emergency Provider Emergency Medicine; PCP Internal Medicine; Visit Provider Physician Assistant Medical | DX: N20.0 Calculus of kidney (principal); N39.0 Urinary tract infection, site not specified; N13.30 Unspecified hydronephrosis | CPT/HCPCS: 99222; 99232 ==

== ENCOUNTER 2025-10-28 12:47 | Outpatient (AMB) | payer MEDICARE, SELFPAY ==
--- NOTE | 2025-10-28 12:49 | MHC.OFFVIS ---
Intake Visit Reasons: H&P ESWL/UA/PVR(set) Intake Note: Reason for Visit: H&P ESWL UA/PVR Follow Up Urology Meds: None Blood Thinners: None Labs: BUN: 10 Creatinine: 0.52 (10/15/2025) Imaging: ABD/Pelvis CT 10/12/2025 Last PVR: None PVR: 0ml Certified Personal Finance Counselor Required: No Store Person: Store Person Present Accompanied by: Daughter Allergies sulfasalazine Allergy (Intermediate, Verified 10/28/25 13:00) nausea, vomiting Medication List - Last Reconciled 10/28/25 by Ro Garcia MD acetaminophen (Tylenol) 650 mg PO Q6H PRN ascorbate calcium (vitamin C) 1,000 mg PO BID cefuroxime axetil 500 mg PO BID 6 days cholecalciferol (vitamin D3) 25 mcg PO DAILY cyclosporine 0.05% (Restasis) 1 drp ophthalmic (eye) BID folic acid 1 mg PO DAILY losartan 100 mg PO DAILY methotrexate sodium 15 mg PO WE@0900 ondansetron 4 mg PO Q6H PRN HPI Comments Details: 10/28/2025---Radha is an 89-year-old female she is here for evaluation and discussion on stone management. History of Present Illness The patient is an 89 year old female presenting for evaluation and discussion on stone management. She had a CT scan on 10/12/25 which showed a kidney stone dropping into the ureter, causing a blockage. She was subsequently admitted to the hospital, presumably for a urinary tract infection and obstructive uropathy, and had a ureteral stent placed by Dr. Del Castillo on the to relieve the blockage. The patient's diet includes a lot of vegetables, and she identifies as a spinach person, eating spinach multiple times a week. She reports drinking warm water, some milk, and diluted cranberry juice. The patient takes Tylenol for rheumatoid arthritis and avoids nonsteroidal anti-inflammatory drugs (NSAIDs) like Motrin or Advil. Results - CT scan dated 10/12/25: A stone was identified dropping into the ureter, causing a blockage. Plan 1. Ureterolithiasis - The patient has a known ureteral stone with a stent in place. - A KUB will be performed the morning of the procedure to confirm the stone's location, which is expected to be in the ureter or renal pelvis. - Plan is to proceed with a left extracorporeal shockwave lithotripsy (ESWL) on November 06. Discussed risks to include but not limited to, blood in the urine, bruising to the skin, kidney hematoma, possible need for another procedure if a stone fragment obstructs the ureter while passing, possible need to repeat procedure if stone is not completely fragmented. - Preoperative instructions include NPO after midnight and avoiding NSAIDs; Tylenol is permitted. 2. Kidney Stone Prevention - The patient's high intake of spinach, an oxalate-rich food, was identified as a potential risk factor for stone formation. - Provided dietary counseling to reduce consumption of high-oxalate foods like spinach. - Advised to add lemon or [place] to water to increase intake of citrate, a natural stone inhibitor. - A 24-hour urine collection test is planned for the future to further evaluate dietary risk factors, to be done after the stent is removed. [facility] Medical History Class 1 obesity with body mass index (BMI) of 32.0 to 32.9 in adult Urinary retention Hypertension UTI (urinary tract infection) History of mammogram (~01/24/25) History of breast cancer Rheumatoid arthritis Hospital discharge follow-up Establishing care with new doctor, encounter for Breast cancer 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 organ or systems involvement Surgical History H/O left breast biopsy Hx of cholecystectomy Hx of tonsillectomy Family History Father CVD (cardiovascular disease) Colon cancer Mother Colon cancer Alzheimer's dementia Social History Household Members: None Housing: House Do you presently have visiting nurse or other home services: No Alcohol intake: current Alcohol intake frequency: holidays/special occasions only Alcohol type: wine Patient Tobacco Use Status: Never used Tobacco e-Cigarette/Vaping Use: Never Used Second Hand Smoke Exposure: No service: No Current occupational status: retired Cognitive needs: No Hearing needs: No Vision needs: Yes (reading glasses) Review of Systems Const All systems reviewed & are unremarkable except as noted in HPI and below Reports no additional complaints Eyes Reports no additional complaints ENT Reports no additional complaints Card Reports no additional complaints Resp Reports no additional complaints GI Reports no additional complaints Reports as per HPI Musc Reports no additional complaints Skin/Breast Reports system reviewed and no additional complaints, except as documented Neuro Reports no additional complaints Psych Reports no additional complaints Endo Reports no additional complaints Damian/Lymph Reports no additional complaints Aller/Immun Reports no additional complaints Office Procedures Post Void Residual Post Residual Void Post Void Residual (PVR): 0 [id number] Void Residual by ultrasound Results Reviewed Results Reviewed: Date of Service: 10/12/25 CLINICAL HISTORY: flank pain, vomiting, h o colic CT abdomen and pelvis without contrast Comparison: CT/SR - CT ABDOMEN PELVIS WITH IV CONTRAST - 04/30/25 11:33 EDT Findings: 7 mm stone in the proximal left ureter with 3 mm stone just distal. The ureter is dilated greater than the renal stones. There is mild left hydroureteronephrosis. On the prior study there was dilation of the left renal pelvis and proximal ureter without a ureteral stone. There is a crossing vessel in this region which may contribute to chronic ureteropelvic junction obstruction/stenosis. There is persistent wall thickening of the left renal pelvis and proximal ureter. On the current exam there is also mild dilation of the mid/distal left ureter. No right hydronephrosis. Right renal parapelvic cysts and lower pole cyst. No right nephrolithiasis. Punctate left nephrolithiasis. No bladder stone. No consolidation at the lung bases. Mild increased subpleural reticulation Status post cholecystectomy. The other solid organs are normal. No bowel wall thickening or dilation. A normal appendix is identified. Colonic diverticulosis. No aneurysm. Moderate calcified atherosclerotic disease. No lymphadenopathy. No ascites. No acute fracture. Grade 1 anterolisthesis of L4 on L5, degenerative. Impression: Mild left hydroureteronephrosis. There are 2 stones in the left proximal ureter, however the ureter is dilated greater than the stones, likely indicating incomplete obstruction. The ureter is also dilated distal to the stones; infection or a recently passed stone may be considered. 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 Persistent wall thickening of the left renal pelvis and ureter indicating pyelitis/ureteritis, infectious/inflammatory. Correlate with urinalysis. Assessment & Plan Assessment & Plan (1) Kidney stone on left side: Code(s): N20.0 - Calculus of kidney Category: Medical (2) Hydronephrosis: Code(s): N13.30 - Unspecified hydronephrosis Category: Medical (3) Ureteral stent present: Code(s): Z96.0 - Presence of urogenital implants Category: Medical Plan Plan 1. Ureterolithiasis - The patient has a known ureteral stone with a stent in place. - A KUB will be performed the morning of the procedure to confirm the stone's location, which is expected to be in the ureter or renal pelvis. - Plan is to proceed with a left extracorporeal shockwave lithotripsy (ESWL) on November 06. Discussed risks to include but not limited to, blood in the urine, bruising to the skin, kidney hematoma, possible need for another procedure if a stone fragment obstructs the ureter while passing, possible need to repeat procedure if stone is not completely fragmented. - Preoperative instructions include NPO after midnight and avoiding NSAIDs; Tylenol is permitted. 2. Kidney Stone Prevention - The patient's high intake of spinach, an oxalate-rich food, was identified as a potential risk factor for stone formation. - Provided dietary counseling to reduce consumption of high-oxalate foods like spinach. - Advised to add lemon or [place] to water to increase intake of citrate, a natural stone inhibitor. - A 24-hour urine collection test is planned for the future to further evaluate dietary risk factors, to be done after the stent is removed. Orders: Orders AMB Post Void Residual by ultrasound Today R33.9 - Retention of urine, unspecified Patient Instructions: The patient had an opportunity to ask questions regarding treatment plan. The patient expressed understanding and agreement with the above treatment plan. The patient is aware they should contact our office by phone for worsening of their current condition or the appearance of new symptoms. Compliance is encouraged with any medications and followup testing that is ordered. It is a privilege to be allowed the opportunity to participate in the urologic care of your patient. If you have any questions or concerns regarding treatment for the above conditions please do not hesitate to contact me. The office telephone contact is [phone]. This note is constructed in part using voice recognition software. While every effort has been made to ensure accuracy cranberry grower errors may have been included. Yours sincerely, Ro Garcia MD Scribe Plan - Not visible on output: Patient was informed and verbally consented to the use of an ambient scribe for clinic note documentation during this visit. Coding Level of Care Code Est Pt Level 4 (44338) Diagnoses Kidney stone on left side N20.0 Hydronephrosis N13.30 Ureteral stent present Z96.0 CPT Codes Post Residual Void - PVR CPT Code: 83655-Iqvb Void Residual by ultrasound ([id number])
== END 2025-10-28 13:58 | disposition home or self-care (01) ==
LOC: HO.HUSH 12:47
PROVIDERS: PCP Internal Medicine; Visit Provider Urology
DX: N20.0 Calculus of kidney (principal); N13.30 Unspecified hydronephrosis; Z96.0 Presence of urogenital implants
CPT/HCPCS: 99214

== ENCOUNTER → 2025-10-28 12:47 | Outpatient (BNVA) | payer MEDICARE, SELFPAY | PROVIDERS: PCP Internal Medicine; Visit Provider Urology | DX: N20.0 Calculus of kidney (principal); N13.30 Unspecified hydronephrosis; Z96.0 Presence of urogenital implants | CPT/HCPCS: 51798; 99212 ==